=== PATIENT | female | born 1970 | race Caucasian/White ===

== ENCOUNTER 2021-11-26 22:27 | Emergency (ER) | payer BC, SELFPAY ==
[2021-11-26 22:47] VITALS: BP 98/57; PULSE 80; RESP 20; TEMP 36.7; O2SAT 99
== END 2021-11-27 00:48 | disposition left against medical advice (07) ==
LOC: ANHED 11-27 00:46
DX: R05.9 Cough, unspecified (principal)
CPT/HCPCS: 99199

== ENCOUNTER 2023-09-09 19:47 | Emergency (ER) | payer MEDICARE, MEDICAID, SELFPAY ==
[2023-09-09 19:48] VITALS: BP 114/78; PULSE 82; RESP 18; TEMP 36.9; O2SAT 100
[2023-09-09 20:01] VITALS: BP 114/78; PULSE 86; RESP 18; TEMP 36.9; O2SAT 100
[2023-09-09] MEDS: LIDOCAINE 5% PATCH 1 PATCH TRANSDERM (20:35)
[2023-09-09] MEDS: HYDROmorphone HCL (*CRX) 2 MG TABLET PO (20:35)
[2023-09-09] MEDS: diazePAM INJ (*CRX) 10 MG/2 ML SYRINGE 5 MG IM (20:36)
[2023-09-09] MEDS: CAPSAICIN 0.025% CREAM 60 GM TUBE 1 APPLIC TOPICAL (20:36)
--- NOTE | 2023-09-09 20:37 | ED.BACK ---
HPI - Back Pain/Injury General Chief Complaint: Back Pain/Injury Stated Complaint: back pain Time Seen by Provider: 09/09/23 20:07 History of Present Illness HPI Narrative: Patient has a history of chronic sciatic pain. She normally takes 4 mg of Dilaudid every 4 hours at home. She was unable to fill her prescription last week and did not have any pain medication for the past 4 days. However then she added that she was able to fill it 2-day and took a dose a couple hours prior to arrival. She states if she can get some additional medicine in the ER she can get ahead of the pain . Patient is moaning and screaming at times. Moving all around the bed. No signs of weakness or numbness on exam. She states at home at times she does get lower extremity tingling. No new changes. Related Data Allergies Allergy/AdvReac Type Severity Reaction Status Date / Time adhesive tape Allergy Intermediate rash Verified 09/09/23 19:57 acetaminophen Allergy Mild HIVES Verified 09/09/23 19:57 oxycodone [From Percocet] Allergy Hives Verified 09/09/23 19:57 OXYCODONE HCL Allergy Mild HIVES Uncoded 09/09/23 19:57 Review of Systems Review of Systems: Review of systems negative except what is documented in the [facility] Social History Social History Smoking status: Smoker, status unknown Alcohol intake: never Exam Narrative: GENERAL: Well-appearing, well-nourished, and constantly moving around in the bed and yelling out HEAD: Normocephalic, atraumatic. EYES: PERRLA and EOMI. ENT: Nares clear, no rhinorrhea or epistaxis. Mucous membranes moist. NECK: Supple. CHEST: Clear to auscultation. No respiratory distress. HEART: Regular rate and rhythm. ABDOMEN: Soft, nontender, nondistended. EXTREMITIES: Normal range of motion. No edema. SKIN: Warm, dry, no rash. NEURO: No focal deficits. Alert and oriented x3. PSYCH: Normal mood and affect. Course Course Emergency Course: Patient states high dose Dilaudid every 4 hours at home. She is managed by pain management. She is due for a dose. Home medication ordered as well as capsaicin lidocaine patch and Valium. Shared decision making regarding plan to go home and continue to take home medications. Patient denies any new injuries or any new neurodeficits. Best plan of care to take home medications and not get additional IV medications in the ER Vital Signs Vital signs: Vital Signs Temperature 36.9 C 09/09/23 19:48 Pulse Rate 82 09/09/23 19:48 Respiratory Rate 18 09/09/23 19:48 Blood Pressure 114/78 09/09/23 19:48 Pulse Oximetry 100 09/09/23 19:48 Oxygen Delivery Room Air 09/09/23 19:48 Temperature 36.9 C 09/09/23 20:01 Pulse Rate 74 09/09/23 21:27 Respiratory Rate 12 09/09/23 21:27 Blood Pressure 98/57 L 09/09/23 21:27 Pulse Oximetry 96 09/09/23 21:27 Oxygen Delivery Room Air 09/09/23 19:48 MDM - Back Pain/Injury MDM Narrative Medical decision making narrative: Patient states her symptoms are identical to when she does not get her pain medication. Will reassess Pt feeling much better. At discharge patient was sitting up rummaging through her purse. I advise she would be going home that there was no other pain medication we could offer and she said that was fine. We discussed her continuing her home medications and what to add. As soon as family arrived she started hollering again but stopped quickly. Pt ambulated to the wheelchair at discharge with stable gait Discharge Plan Discharge Clinical Impression: Chronic back pain Qualifiers: Back pain location: low back pain Back pain laterality: left Sciatica presence: with sciatica Sciatica laterality: sciatica of left side Qualified Code(s): M54.42 - Lumbago with sciatica, left side Sciatica Qualifiers: Laterality: left Qualified Code(s): M54.32 - Sciatica, left side Patient Disposition: Home, Self-Care Condition: Stable Instructions: Chronic Back Pain (DC),
[2023-09-09 21:27] VITALS: BP 98/57; PULSE 74; RESP 12; O2SAT 96
== END 2023-09-09 22:50 | disposition home or self-care (01) ==
PROVIDERS: Emergency Provider Emergency Medicine
DX: M54.42 Lumbago with sciatica, left side (principal)
CPT/HCPCS: 96372; 99283; A9270; J3360

== ENCOUNTER 2024-10-21 18:14 | Emergency (ER) | payer MEDICARE, MEDICAID, SELFPAY ==
--- NOTE | ~2024-10-21 | CT_ITS ---
EXAMINATION: CT brain wo con DATE: 10/21/2024 19:00 INDICATION: Altered mental status. TECHNIQUE: Computed tomography (CT) of the head was performed without intravenous contrast. The mA wa s adjusted according to patient size. Iterative reconstruction technique was employed. The dose-lengt h product was 605.33 mGy-cm. COMPARISON: Head CT 11/12/2006 FINDINGS: There is no intracranial hemorrhage, acute infarction, or abnormal intracranial mass lesion . The ventricles are normal in size. The orbits are normal. There is mild mucosal thickening in the p aranasal sinuses. The mastoid air cells are normal. IMPRESSION: 1. Normal brain. Reviewed, dictated and finalized at location A. ENT AMBASSADOR IMPRESSION: 1. Normal brain.
[2024-10-21 18:15] VITALS: BP 108/71; PULSE 86; RESP 12; O2SAT 95
--- NOTE | 2024-10-21 18:19 | ECG_ITS ---
Test Date: 2024-10-21 18:40:01 Measurements Intervals [place] Rate: 73 P: 50 MD: 169 QRS: 17 QRSD: 91 T: 40 QT: 400 QTc: 442 Interpretive Statements SINUS RHYTHM BASELINE ARTIFACT- I, III, AVR, AVL, AVF NORMAL ECG No previous ECG available for comparison Electronically Signed On 10-21-2024 18:42:44 [employer] by Yeyo Perikns D.O.
--- NOTE | 2024-10-21 18:28 | PC.NURSE ---
Patient now speaking and answering some questions.
--- NOTE | 2024-10-21 18:28 | PC.NURSE ---
patient placed on 4L NC due to patient dropping down to 80% RA
--- NOTE | 2024-10-21 18:31 | ED.GENADULT ---
HPI - General Adult General Chief complaint: Seizure Stated complaint: Seizure Time Seen by Provider: 10/21/24 18:28 History of Present Illness HPI narrative: 54-year-old female present to the emergency department for evaluation for syncope and seizure-like activity. When EMS arrived patient had worsening seizure-like activity patient was treated with 10 mg of IM Versed. Patient does not have a prior history of seizure but her daughter does have history of epilepsy. Patient was somnolent upon arrival due to the Versed. states that the patient has not been eating and drinking well and often over exerts herself the point of exhaustion. Related Data Allergies Allergy/AdvReac Type Severity Reaction Status Date / Time adhesive tape Allergy Intermediate rash Verified 10/21/24 18:41 acetaminophen Allergy Mild HIVES Verified 10/21/24 18:41 oxycodone [From Percocet] Allergy Hives Verified 10/21/24 18:41 OXYCODONE HCL Allergy Mild HIVES Uncoded 10/21/24 18:41 Review of Systems Review of Systems: All systems reviewed & are unremarkable except as noted in HPI and below [facility] Social History Social History Smoking status: Smoker, status unknown Alcohol intake: never Exam Narrative: APPEARANCE: Sedated appearing HEAD: normocephalic, atraumatic. EYES: PERRLA/EOMI, conjunctivae clear. NOSE: Normal no drainage EARS:TMS clear with good light reflex. THROAT: Pharynx clear, no exudate. NECK: Supple. No adenopathy, no masses. RESPIRATORY: Airway patent, respirations nonlabored. Clear to auscultation bilaterally, no rales, rhonchi, wheezing. CARDIOVASCULAR: Regular rate and rhythm without murmurs rubs or gallops. ABDOMINAL: Soft, nontender, nondistended, normal bowel sounds MUSCULOSKELETAL: Moves all extremities. Strength/ROM intact, No edema, No calf tenderness. NEURO: Confused but moving all limbs, no focal deficit SKIN: Warm, dry. Normal Color Course Vital Signs Vital signs: Vital Signs Pulse Rate 86 10/21/24 18:15 Respiratory Rate 12 10/21/24 18:15 Blood Pressure 108/71 10/21/24 18:15 Pulse Oximetry 95 10/21/24 18:15 Oxygen Delivery Room Air 10/21/24 18:15 Pulse Rate 69 10/21/24 19:13 Respiratory Rate 16 10/21/24 19:13 Blood Pressure 117/70 10/21/24 19:13 Pulse Oximetry 100 10/21/24 19:13 Oxygen Delivery Room Air 10/21/24 18:25 Medical Decision Making MDM Narrative Medical decision making narrative: 54-year-old female presenting to the emergency department for evaluation for seizure-like activity. Patient was treated with 10 mg of IM Versed prior to arrival. Patient was very sedated upon arrival. Patient did have a gag reflex. Patient then began to be agitated On re-evaluation patient is more alert appropriate. Patient denies any pain or complaint. Patient states she is hungry. Patient is afebrile with no leukocytosis and hemoglobin of 13.1, patient has no acute abnormalities on her CMP, patient's lactic acid is mildly elevated 2.5. Head CT shows no acute intracranial abnormality. Differential Diagnosis Differential Diagnosis: Seizure, syncope, dehydration, adverse drug reaction Vital Signs Vital Signs: Vital Signs Pulse Rate 86 10/21/24 18:15 Respiratory Rate 12 10/21/24 18:15 Blood Pressure 108/71 10/21/24 18:15 Pulse Oximetry 95 10/21/24 18:15 Oxygen Delivery Room Air 10/21/24 18:15 Pulse Rate 69 10/21/24 19:13 Respiratory Rate 16 10/21/24 19:13 Blood Pressure 117/70 10/21/24 19:13 Pulse Oximetry 100 10/21/24 19:13 Oxygen Delivery Room Air 10/21/24 18:25 Lab Data Lab results reviewed: Yes I reviewed the patient's lab results. 10/21/24 18:37 10/21/24 18:37 Labs: Lab Results 10/21/24 Range/Units 18:37 WBC 7.2 (4.5-10.0) K/mm3 RBC 3.96 L (4.2-5.4) M/mm3 Hgb 13.1 (12.0-15.0) g/dL Hct 40.0 (37.0-47.0) % MCV 101.0 H (80-100) fl MCH 33.1 (26-34) pg MCHC 32.8 (32-36) g/dl RDW 13.0 (11.5-14.5) % Plt Count 199 (150-375) k/mm3 MPV 10.6 H (7.4-10.4) fl Immature Gran % (Auto) 0.3 (0-0.5) % Neut % (Auto) 48.5 (45.5-73.1) % Lymph % (Auto) 39.4 (18.3-44.2) % [place] % (Auto) 9.4 H (2.6-8.5) % Eos % (Auto) 2.1 (0-4.4) % Baso % (Auto) 0.3 (0.2-1.2) % Lymph # (Auto) 2.84 (0.9-3.2) K/mm3 [place] # (Auto) 0.7 H (0.1-0.6) K/mm3 Eos # (Auto) 0.2 (0-0.3) K/mm3 Baso # (Auto) 0.0 (0.0-0.1) K/mm3 Abs Immat Gran (auto) 0.02 (0.00-0.031) K/mm3 Absolute Neuts (auto) 3.5 (1.3-6.7) K/mm3 Absolute Nucleated RBC 0.000 (0.0-0.012) K/mm3 Nucleated RBC % 0.0 (0.0-0.2) % PT 13.4 (11.1-14.7) Seconds INR 1.0 APTT 28.0 (22.3-36.8) Seconds Sodium 140 (137-145) mmol/L Potassium 4.1 (3.4-5.0) mmol/L Chloride 104 (98-107) mmol/L Carbon Dioxide 32 H (22-30) mmol/L Anion Gap 4 (4-12) mmol/L BUN 3 L (7-17) mg/dL Creatinine 0.60 L (0.7-1.0) mg/dL Estim Creat Clear Calc Not Reportable Estimated GFR > 60 (59 - ) Glucose 85 (65-110) mg/dL Lactic Acid 2.5 H (0.7-2.0) mmol/L Calcium 8.9 (8.4-10.2) mg/dL Total Bilirubin 0.4 (0.2-1.3) mg/dL AST 41 H (14-36) U/L ALT 17 (6-35) U/L Alkaline Phosphatase 93 (38-126) U/L Total Protein 7.0 (6.3-8.2) g/dL Albumin 3.9 (3.5-5.1) g/dL Imaging Data Radiologist's impression: Impressions Head CT 10/21/24 19:02 IMPRESSION: 1. Normal brain. Discharge Plan Discharge Clinical Impression: Seizure-like activity Patient Disposition: Home, Self-Care Condition: Stable Instructions: Antibiotic Form, New-Onset Seizure in Adults (ED) Additional Instructions: Follow seizure precautions. Have close follow-up with your primary care physician. If you have any worsening symptoms then please call or return to the emergency department. Follow-up/Referrals: Rohith Feng MD [Physician] - PHYSICIAN NOT ON STAFF,NONSTAFF [Non-Staff] -
--- NOTE | 2024-10-21 18:40 | PC.NURSE ---
seizure pads placed on patient's bed patient only alert to painful stimuli at this time. provider aware and states to keep an eye on patient
[2024-10-21 18:44] LABS: Basophils Percent Auto 0.3 % (0.2-1.2); Eosinophils Absolute Auto 0.2 K/mm3 (0-0.3); Eosinophils Percent Auto 2.1 % (0-4.4); Hemoglobin 13.1 g/dL (12.0-15.0); Immature Granulocyte Absolute 0.02 K/mm3 (0.00-0.031); Immature Granulocyte Percent A 0.3 % (0-0.5); Lymphocytes Absolute Auto 2.84 K/mm3 (0.9-3.2); Lymphocytes Percent Auto 39.4 % (18.3-44.2); Mean Corpuscular HGB Conc 32.8 g/dl (32-36); Mean Corpuscular Hemoglobin 33.1 pg (26-34); Mean Platelet Volume 10.6 fl (7.4-10.4); Monocytes Absolute Auto 0.7 K/mm3 (0.1-0.6); Monocytes Percent Auto 9.4 % (2.6-8.5); Neutrophils Absolute Auto 3.5 K/mm3 (1.3-6.7); Neutrophils Percent Auto 48.5 % (45.5-73.1); Platelet Count Result 199 k/mm3 (150-375); Red Blood Count 3.96 M/mm3 (4.2-5.4); White Blood Count 7.2 K/mm3 (4.5-10.0)
[2024-10-21 18:55] LABS: Prothrombin Time 13.4 Seconds (11.1-14.7)
[2024-10-21 18:57] LABS: Alanine Aminotransferase 17 U/L (6-35); Albumin Level 3.9 g/dL (3.5-5.1); Alkaline Phosphatase 93 U/L (38-126); Anion Gap 4 mmol/L (4-12); Aspartate Amino Transferase 41 U/L (14-36); Bilirubin,Total 0.4 mg/dL (0.2-1.3); Blood Urea Nitrogen 3 mg/dL (7-17); Calcium 8.9 mg/dL (8.4-10.2); Carbon Dioxide 32 mmol/L (22-30); Chloride 104 mmol/L (98-107); Estimated Glomerular Filt Rate > 60; Glucose 85 mg/dL (65-110); Lactic Acid Reflex 2.5 mmol/L (0.7-2.0); Potassium 4.1 mmol/L (3.4-5.0); Sodium 140 mmol/L (137-145)
[2024-10-21 19:13] VITALS: BP 117/70; PULSE 69; RESP 16; O2SAT 100
[2024-10-21 21:42] LABS: Reflex Lactic Acid Yes or No Add Lactic
[2024-10-21 21:57] VITALS: BP 110/64; PULSE 71; RESP 17; O2SAT 99
== END 2024-10-21 21:59 | disposition home or self-care (01) ==
PROVIDERS: Emergency Provider Emergency Medicine
DX: R56.9 Unspecified convulsions (principal)
CPT/HCPCS: 36415; 70450; 80053; 83605; 85025; 85610; 85730; 93005; 99284

== ENCOUNTER 2025-04-18 19:41 | Inpatient (IN) | payer MEDICARE, MEDICAID, SELFPAY ==
--- NOTE | ~2025-04-18 | CT_ITS ---
History: Seizure-like activity PROCEDURE: CT head without contrast. COMPARISON: 04/18/2025 TECHNIQUE: Axial imaging of the head performed from the skull base to the vertex prior to and following the admi nistration of IV contrast. Sagittal and coronal reformations obtained. DLP: 1211 mGy-cm FINDINGS: The ventricles are normal in size, shape and position. There is no mass, mass effect or midline shift. No abnormal contrast enhancement is appreciated. There is no abnormal extra-axial fluid collection or intracranial hemorrhage. Visualized paranasal sinuses are clear. The mastoid air cells are well aerated. No acute displaced fractures within the overlying cranium. Impression: No acute intracranial hemorrhage, abnormal contrast enhancement or suspicious mass effect. Reviewed, dictated and finalized at location A. Impression: No acute intracranial hemorrhage, abnormal contrast enhancement or suspicious m ass effect.
--- NOTE | ~2025-04-18 | XR_ITS ---
CHEST RADIOGRAPH CLINICAL HISTORY: AMS . COMPARISON: 10/12/2014 TECHNIQUE: Single portable view of the chest. Examination is markedly limited secondary to positioning/patient cooperation FINDINGS Loop recorder projects to the right of midline. Dorsal column stimulator device is noted. The remainder of the cardiomediastinal silhouette is otherwise unremarkable. The lungs are primarily clear, within the confines of patient's positioning. IMPRESSION: No large infiltrate or effusion. No pneumothorax. Reviewed, dictated and finalized at location A.
--- NOTE | ~2025-04-18 | CT_ITS ---
History: Blunt head trauma with loss of consciousness. PROCEDURE: CT head without contrast. COMPARISON: 10/21/2024 TECHNIQUE: Axial imaging of the head performed from the skull base to the vertex without IV contrast. Sagittal a nd coronal reformations obtained. DLP: 681 mGy-cm FINDINGS: The ventricles are normal in size, shape and position. There is no mass, mass effect or midline shift. There is no abnormal extra-axial fluid collection or intracranial hemorrhage. Visualized paranasal sinuses are clear. The mastoid air cells are well aerated. No acute displaced fractures within the overlying cranium. Impression: No acute intracranial hemorrhage or suspicious mass effect. Reviewed, dictated and finalized at location A. Impression: No acute intracranial hemorrhage or suspicious mass effect.
--- NOTE | ~2025-04-18 | CT_ITS ---
History: Blunt head trauma with loss of consciousness PROCEDURE: CT cervical spine without intravenous contrast. COMPARISON: None TECHNIQUE: Multiple contiguous axial images of the cervical spine were performed without the administration of i ntravenous contrast. DLP: 317 mGy-cm FINDINGS: Straightening and slight reversal of the normal curvature of the cervical spine is identified, likely muscular in origin. No acute fractures are present. The bilateral lung apices are unremarkable. No soft tissue abnormality is present. The airway is unremarkable. Impression: Straightening and slight reversal of the normal curvature of the cervical spine, likely muscular in o rigin. No acute fracture. Reviewed, dictated and finalized at location A. Impression: Straightening and slight reversal of the normal curvature of the cervical spine , likely muscular in origin. No acute fracture.
--- NOTE | ~2025-04-18 | US_ITS ---
EXAMINATION: US carotid duplex BI DATE: 04/19/2025 14:46 CDT INDICATION: Seizure-like activity TECHNIQUE: Grayscale, color Doppler, and pulsed Doppler images of the cervical carotid arteries were obtained. The degree of vessel stenosis is placed in one of the following categories: normal, <50%, 50-69%, >=7 0% but less than near-occlusion, near-occlusion, or total occlusion. Note that percent stenosis relative to normal distal artery lumen diameter is indirectly measured fro m velocity measurements as described originally by Phani, et al. Radiology 2003; 229:340-346 and upda padmini by Darío Rome et al STROKE 2012;43(3);915-921. COMPARISON: None. FINDINGS: There is mild atherosclerosis of both carotid arteries. Peak systolic velocity (in cm/s) is detailed below RIGHT: Right common carotid artery (CCA): 98 cm/s. Right internal carotid artery (ICA) PSV: 121 cm/s. Right ICA end-diastolic velocity (EDV): 43 cm/s. Right ICA/CCA PSV ratio is 1.2. Right external carotid artery (ECA): 97cm/s. There is antegrade flow in the right vertebral artery. LEFT: Left common carotid artery (CCA): 91 cm/s. Left internal carotid artery (ICA) PSV: 109 cm/s. Left ICA end-diastolic velocity (EDV): 38 cm/s. Left ICA/CCA PSV ratio is 1.2. Left external carotid artery (ECA): 81cm/s. There is antegrade flow in the left vertebral artery. IMPRESSION: 1. Less than 50% stenosis in the right internal carotid artery. 2. Less than 50% stenosis in the left internal carotid artery. Reviewed, dictated and finalized at location A.
[2025-04-18 19:43] VITALS: BP 129/69; PULSE 72; RESP 12; TEMP 37.1; O2SAT 99
--- NOTE | 2025-04-18 19:54 | ECG_ITS ---
Test Date: 2025-04-18 21:35:14 Measurements Intervals [place] Rate: 75 P: 50 [place]: 182 QRS: 25 QRSD: 100 T: 48 QT: 387 QTc: 432 Interpretive Statements SINUS RHYTHM NONSPECIFIC T-WAVE ABNORMALITY Compared to ECG 10/21/2024 18:40:01 T-wave abnormality now present Electronically Signed On 04-19-2025 10:44:38 CDT by Mike Kelly M.D.
--- NOTE | 2025-04-18 19:55 | ED_ITS ---
HPI - Head Injury General Chief complaint: Head Injury <Helene Corcoran PA-C - Last Filed: 04/18/25 22:22> Stated complaint: head trauma <Helene Corcoran PA-C - Last Filed: 04/18/25 22:22> History of Present Illness HPI Narrative: 54-year-old female with reported history of seizure presents to the ED via EMS for head injury seizure-like activity. Patient's daughter is at bedside to assist with history. Patient states yesterday he she hit the top of her head with the trunk of her car. She denies LOC. Her daughter states throughout the day today she is seemed more confused and has been complaining of dizziness. Reportedly the patient was getting of a car when she had another episode of seizure-like activity and hit her head with reported loss of consciousness. She is not anticoagulated. She is not on any antiepileptics and not currently established with a neurologist. States she has not had a seizure in 1.5 years. On arrival to the ED the patient is complaining of headache. She endorses chronic numbness and weakness of her left leg from a prior back injury but otherwise denies new focal numbness or weakness. Denies chest pain or shortness of breath, cough or congestion, nausea vomiting, diarrhea, fever. Denies drug or alcohol use. <Helene Corcoran PA-C - Last Filed: 04/18/25 22:22> Related Data Home medications: Home Medications ?Medication ?Instructions ?Recorded ?Confirmed ?Last Taken ?Type atorvastatin 40 mg tablet 40 mg PO QPM 04/18/25 04/18/25 Unknown History ergocalciferol (vitamin D2) 1,250 1,250 mcg PO WEEKLY 04/18/25 04/18/25 Unknown History mcg (50,000 unit) capsule estradiol 1 mg tablet 1 mg PO DAILY 04/18/25 04/18/25 Unknown History hydromorphone 4 mg tablet 4 mg PO Q4-6H PRN pain 04/18/25 04/18/25 Unknown History levothyroxine 150 mcg tablet 150 mcg PO DAILY 04/18/25 04/18/25 Unknown History sertraline 100 mg tablet 100 mg PO Q24H 04/18/25 04/18/25 Unknown History tizanidine 4 mg tablet 4 mg PO TID 04/18/25 04/18/25 Unknown History <Helene Corcoran PA-C - Last Filed: 04/18/25 22:22> Allergies/Adverse reactions: Allergies Allergy/AdvReac Type Severity Reaction Status Date / Time adhesive tape Allergy Intermediate rash Verified 10/21/24 18:41 acetaminophen Allergy Mild HIVES Verified 10/21/24 18:41 oxycodone (From Percocet) Allergy Hives Verified 10/21/24 18:41 OXYCODONE HCL Allergy Mild HIVES Uncoded 10/21/24 18:41 <Helene Corcoran PA-C - Last Filed: 04/18/25 22:22> Review of Systems 2 Review of Systems: All systems reviewed & are unremarkable except as noted in HPI and below <Helene Corcoran PA-C - Last Filed: 04/18/25 22:22> PMFSH Social History Social History: Social History Smoking packs per day: 1 Smoking cigarettes per day: 20.0 Smoking status: Current every day smoker Tobacco type: cigarettes Alcohol intake: never Substance use: never Do You Feel Safe in your Home?: Yes Lack of Transportation: No Lack of Food: Never True Current Housing: I Have Housing Concerned About Future Housing: No Difficulty Paying Gas/Electric Bills: No Difficulty Paying for Meds: No Currently Unemployed: No Education: Bachelor's Degree Difficulty w/ Childcare or Family Care: No Spiritual care concerns: No <Helene Corcoran PA-C - Last Filed: 04/18/25 22:22> Exam 2 Narrative: GENERAL: Well-appearing, well-nourished, and in no acute distress. HEAD: Normocephalic, atraumatic. EYES: EOMI. ENT: Nares clear, no rhinorrhea or epistaxis. Mucous membranes moist. NECK: Supple. CHEST: Clear to auscultation. No respiratory distress. HEART: Regular rate and rhythm. No murmur heard. Normal peripheral pulses. ABDOMEN: Soft, nontender, nondistended, normal active bowel sounds. EXTREMITIES: Normal range of motion. No edema. SKIN: Warm, dry, no rash. NEURO: No focal deficits. Alert and oriented x2. Cranial nerves 2-12 intact. Reported decreased sensation to the left lower extremity which is unchanged from baseline. Strength and sensation otherwise intact. <Helene Corcoran PA-C - Last Filed: 04/18/25 22:22> Course DIGITAL FORENSIC ANALYST/PA Physician Supervision I agree with midlevel documentation; I performed the medical decision making component of this evaluation. <Mar Tinajero MD - Last Filed: 04/19/25 03:17> Vital Signs Vital signs: Vital Signs Temperature 98.7 F 04/18/25 19:43 Pulse Rate 72 04/18/25 19:43 Respiratory Rate 12 04/18/25 19:43 Blood Pressure 129/69 04/18/25 19:43 Pulse Oximetry 99 04/18/25 19:43 Oxygen Delivery Room Air 04/18/25 19:43 Temperature 97.1 F L 04/19/25 00:48 Pulse Rate 74 04/19/25 00:48 Respiratory Rate 20 04/19/25 00:48 Blood Pressure 118/62 04/19/25 00:48 Pulse Oximetry 99 04/19/25 00:48 Oxygen Delivery Room Air 04/18/25 23:48 <Helene Corcoran PA-C - Last Filed: 04/18/25 22:22> Vital Signs Temperature 98.7 F 04/18/25 19:43 Pulse Rate 72 04/18/25 19:43 Respiratory Rate 12 04/18/25 19:43 Blood Pressure 129/69 04/18/25 19:43 Pulse Oximetry 99 04/18/25 19:43 Oxygen Delivery Room Air 04/18/25 19:43 Temperature 97.1 F L 04/19/25 00:48 Pulse Rate 74 04/19/25 00:48 Respiratory Rate 20 04/19/25 00:48 Blood Pressure 118/62 04/19/25 00:48 Pulse Oximetry 99 04/19/25 00:48 Oxygen Delivery Room Air 04/18/25 23:48 <Mar Tinajero MD - Last Filed: 04/19/25 03:17> MDM - Head Injury MDM Narrative Medical decision making narrative: 54-year-old female with reported history of seizures presents to emergency department with daughter at bedside for head injury yesterday and today and seizure-like activity that occurred prior to arrival. See HPI for further history. Patient is A&Ox2 upon arrival to the ED. She has no new lateralizing deficits, see exam above. CBC without leukocytosis or anemia. Chemistries are unremarkable. UA unremarkable. UDS positive for opiates, patient is prescribed [place] by pain management for chronic pain. ETOH less than 10. TSH within normal limits. Chest x-ray shows no acute cardiopulmonary findings. CK and lactic acid are within normal limits. CT brain and cervical spine showed no acute findings. Patient updated on results. She did have an episode of seizure-like activity in the ED. I immediately went to the bedside. Patient was visualized having diffuse tonic clonic like movements, however when I called her name she open her eyes and track me with her eyes. She was given 2 mg of Ativan by nursing staff and seizure-like activity stopped. She had no postictal state and was converse aiding in A&O x4 immediately after episode. Patient remains A&O x4 on re-evaluation. Differential diagnosis includes pseudo-seizure/non epileptic seizure, epilepsy, concussion and other. Given patient is a poor historian and is on close follow-up with Neurology, plan to admit to the hospitalist for further evaluation and management with consult to Neurology tomorrow. Discussed with hospitalist, Dr. Rodriguez, who agrees to admission. Pt is requesting a dose of her home po dilaudid. <Helene Corcoran PA-C - Last Filed: 04/18/25 22:22> Lab Data Result diagrams: 04/18/25 20:04 04/18/25 20:04 <Helene Corcoran PA-C - Last Filed: 04/18/25 22:22> Labs: Lab Results 04/18/25 04/18/25 Range/Units 20:04 20:46 WBC 7.8 (4.5-10.0) K/mm3 RBC 4.44 (4.2-5.4) M/mm3 Hgb 14.2 (12.0-15.0) g/dL Hct 43.5 (37.0-47.0) % MCV 98.0 (80-100) fl MCH 32.0 (26-34) pg MCHC 32.6 (32-36) g/dl RDW 12.5 (11.5-14.5) % Plt Count 184 (150-375) k/mm3 MPV 11.8 H (7.4-10.4) fl Immature Gran % (Auto) 0.3 (0-0.5) % Neut % (Auto) 54.6 (45.5-73.1) % Lymph % (Auto) 37.7 (18.3-44.2) % [place] % (Auto) 5.8 (2.6-8.5) % Eos % (Auto) 1.3 (0-4.4) % Baso % (Auto) 0.3 (0.2-1.2) % Lymph # (Auto) 2.93 (0.9-3.2) K/mm3 [place] # (Auto) 0.5 (0.1-0.6) K/mm3 Eos # (Auto) 0.1 (0-0.3) K/mm3 Baso # (Auto) 0.0 (0.0-0.1) K/mm3 Abs Immat Gran (auto) 0.02 (0.00-0.031) K/mm3 Absolute Neuts (auto) 4.3 (1.3-6.7) K/mm3 Absolute Nucleated RBC 0.000 (0.0-0.012) K/mm3 Nucleated RBC % 0.0 (0.0-0.2) % PT 12.6 (11.1-14.7) Seconds INR 0.9 APTT 28.8 (22.3-36.8) Seconds Sodium 140 (137-145) mmol/L Potassium 3.9 (3.4-5.0) mmol/L Chloride 105 (98-107) mmol/L Carbon Dioxide 29 (22-30) mmol/L Anion Gap 6 (4-12) mmol/L BUN 9 D (7-17) mg/dL Creatinine 0.71 (0.7-1.0) mg/dL Estim Creat Clear Calc 72 ml/min Estimated GFR > 60 (59 - ) Glucose 85 (65-110) mg/dL Lactic Acid 0.9 (0.7-2.0) mmol/L Calcium 9.1 (8.4-10.2) mg/dL Total Bilirubin 0.3 (0.2-1.3) mg/dL AST 26 (14-36) U/L ALT 14 (6-35) U/L Alkaline Phosphatase 118 (38-126) U/L Total Creatine Kinase 65 (30-135) U/L Troponin I < 0.012 (0.000-0.034) ng/mL Total Protein 8.0 (6.3-8.2) g/dL Albumin 4.5 (3.5-5.1) g/dL TSH 3.980 (0.465-4.680) uIU/mL Urine Color Yellow (Yellow) Urine Appearance Clear (Clear) Urine pH 5.5 (5.0-9.0) Ur Specific Dinosaur 1.007 (1.001-1.035) Urine Protein Negative (Negative) mg/dL Urine Glucose (UA) Negative (Negative) mg/dL Urine Ketones Negative (Negative) mg/dL Ur Blood (Man) Negative (Negative) Urine Nitrate Negative (Negative) Urine Bilirubin Negative (Negative) Urine Urobilinogen 1.0 (<2.0) mg/dL Leukocyte Esterase Rfl Negative (Negative) RODNEY/UL Urine Opiates Screen Positive A (Negative) Urine Methadone Screen Negative (Negative) Ur Barbiturates Screen Negative (Negative) Ur Phencyclidine Scrn Negative (Negative) Ur Amphetamine Screen Negative (Negative) U Benzodiazepines Scrn Negative (Negative) Urine Cocaine Screen Negative (Negative) U Cannabinoids Screen Negative (Negative) Ethyl Alcohol < 10 (<10) mg/dL <Helene Corcoran PA-C - Last Filed: 04/18/25 22:22> Lab Results 04/18/25 04/18/25 Range/Units 20:04 20:46 WBC 7.8 (4.5-10.0) K/mm3 RBC 4.44 (4.2-5.4) M/mm3 Hgb 14.2 (12.0-15.0) g/dL Hct 43.5 (37.0-47.0) % MCV 98.0 (80-100) fl MCH 32.0 (26-34) pg MCHC 32.6 (32-36) g/dl RDW 12.5 (11.5-14.5) % Plt Count 184 (150-375) k/mm3 MPV 11.8 H (7.4-10.4) fl Immature Gran % (Auto) 0.3 (0-0.5) % Neut % (Auto) 54.6 (45.5-73.1) % Lymph % (Auto) 37.7 (18.3-44.2) % [place] % (Auto) 5.8 (2.6-8.5) % Eos % (Auto) 1.3 (0-4.4) % Baso % (Auto) 0.3 (0.2-1.2) % Lymph # (Auto) 2.93 (0.9-3.2) K/mm3 [place] # (Auto) 0.5 (0.1-0.6) K/mm3 Eos # (Auto) 0.1 (0-0.3) K/mm3 Baso # (Auto) 0.0 (0.0-0.1) K/mm3 Abs Immat Gran (auto) 0.02 (0.00-0.031) K/mm3 Absolute Neuts (auto) 4.3 (1.3-6.7) K/mm3 Absolute Nucleated RBC 0.000 (0.0-0.012) K/mm3 Nucleated RBC % 0.0 (0.0-0.2) % PT 12.6 (11.1-14.7) Seconds INR 0.9 APTT 28.8 (22.3-36.8) Seconds Sodium 140 (137-145) mmol/L Potassium 3.9 (3.4-5.0) mmol/L Chloride 105 (98-107) mmol/L Carbon Dioxide 29 (22-30) mmol/L Anion Gap 6 (4-12) mmol/L BUN 9 D (7-17) mg/dL Creatinine 0.71 (0.7-1.0) mg/dL Estim Creat Clear Calc 72 ml/min Estimated GFR > 60 (59 - ) Glucose 85 (65-110) mg/dL Lactic Acid 0.9 (0.7-2.0) mmol/L Calcium 9.1 (8.4-10.2) mg/dL Total Bilirubin 0.3 (0.2-1.3) mg/dL AST 26 (14-36) U/L ALT 14 (6-35) U/L Alkaline Phosphatase 118 (38-126) U/L Total Creatine Kinase 65 (30-135) U/L Troponin I < 0.012 (0.000-0.034) ng/mL Total Protein 8.0 (6.3-8.2) g/dL Albumin 4.5 (3.5-5.1) g/dL TSH 3.980 (0.465-4.680) uIU/mL Urine Color Yellow (Yellow) Urine Appearance Clear (Clear) Urine pH 5.5 (5.0-9.0) Ur Specific Dinosaur 1.007 (1.001-1.035) Urine Protein Negative (Negative) mg/dL Urine Glucose (UA) Negative (Negative) mg/dL Urine Ketones Negative (Negative) mg/dL Ur Blood (Man) Negative (Negative) Urine Nitrate Negative (Negative) Urine Bilirubin Negative (Negative) Urine Urobilinogen 1.0 (<2.0) mg/dL Leukocyte Esterase Rfl Negative (Negative) RODNEY/UL Urine Opiates Screen Positive A (Negative) Urine Methadone Screen Negative (Negative) Ur Barbiturates Screen Negative (Negative) Ur Phencyclidine Scrn Negative (Negative) Ur Amphetamine Screen Negative (Negative) U Benzodiazepines Scrn Negative (Negative) Urine Cocaine Screen Negative (Negative) U Cannabinoids Screen Negative (Negative) Ethyl Alcohol < 10 (<10) mg/dL <Mar Tinajero MD - Last Filed: 04/19/25 03:17> Discharge Plan Discharge Clinical Impression: Seizure-like activity Closed head injury Qualifiers: Encounter type: initial encounter Qualified Code(s): S09.90XA - Unspecified injury of head, initial encounter <Helene Corcoran PA-C - Last Filed: 04/18/25 22:22> Patient Disposition: Still a Patient <Helene Corcoran PA-C - Last Filed: 04/18/25 22:22> Condition: Stable <Helene Corcoran PA-C - Last Filed: 04/18/25 22:22>
[2025-04-18 20:13] LABS: Basophils Percent Auto 0.3 % (0.2-1.2); Eosinophils Absolute Auto 0.1 K/mm3 (0-0.3); Eosinophils Percent Auto 1.3 % (0-4.4); Hematocrit 43.5 % (37.0-47.0); Hemoglobin 14.2 g/dL (12.0-15.0); Immature Granulocyte Absolute 0.02 K/mm3 (0.00-0.031); Immature Granulocyte Percent A 0.3 % (0-0.5); Lymphocytes Absolute Auto 2.93 K/mm3 (0.9-3.2); Lymphocytes Percent Auto 37.7 % (18.3-44.2); Mean Corpuscular HGB Conc 32.6 g/dl (32-36); Mean Platelet Volume 11.8 fl (7.4-10.4); Monocytes Absolute Auto 0.5 K/mm3 (0.1-0.6); Monocytes Percent Auto 5.8 % (2.6-8.5); Neutrophils Absolute Auto 4.3 K/mm3 (1.3-6.7); Neutrophils Percent Auto 54.6 % (45.5-73.1); Platelet Count Result 184 k/mm3 (150-375); Red Blood Count 4.44 M/mm3 (4.2-5.4); Red Cell Distribution Width 12.5 % (11.5-14.5); White Blood Count 7.8 K/mm3 (4.5-10.0)
--- OUTSIDE RECORDS SUMMARY | 2025-04-18 20:21 | XMS_ITS | Clinical Summary ---
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 Role Phone Unavailable Primary Care Provider Unavailabl e Social History Tobacco Use Types Packs/Day Years Used Date Smoking Tobacco: Never Assessed Comments Unknown Sex and Gender Information Value Date Recorded Sex Assigned at Not on file Legal Sex Female 11:41 PM CDT Gender Identity Not on file Sexual Orientation Not on file Plan of Treatment Health Maintenance Due Date Last Done Comments Cervical Cancer Screening Pa p Smear (Age 30 to 64) Every 3 Years 1969 Colorectal Cancer Screening Colonoscopy (10 Years) 1969 Annual Physical 1972 Hepatitis C 1987 DTaP, Tdap and Td Vaccines ( 1 - Tdap) 1988 Hepatitis B Vaccines (1 of 3 - 19+ 3-dose series) 1988 Cervical Cancer Screening Pa p with HPV Testing (Age 30 to 64) Every 5 Years 1999 Cervical Cancer Screening with HPV 1999 Mammogram Screening 2009 Pneumococcal Vaccine: 50+ Ye ars (1 of 1 - PCV) 2019 Zoster Vaccines (1 of 2) 2019 COVID-19 Vaccine ( - 2023-2 5 season) 2024 Meningococcal B Vaccine Aged Out No l onger eligible based on patient's age to complete this topic Meningococcal Vaccine Aged Out No nanette alverto eligible based on patient's age to complete this topic RSV Immunizations Under 20 Months Aged Out No longer eligible based on patient's age to complete this topic
--- OUTSIDE RECORDS SUMMARY | 2025-04-18 20:21 | XMS_ITS | Data Portability ---
Author Organization [facility] [place] Address [address] [place] [address] [place] [address] Assessment No assessment recorded. Plan of Treatment Reminders Order Date Submit Date Provider Last Modified By Organization Details Last Modified Time Details Appointments None recorded. Lab None recorded. Referral None recorded. Procedures None recorded. Surgeries None recorded. Imaging MAMMO, screening, digital, bilateral 2024 025 CHASIDY Not available 04:09:54 Medication Orders nystatin 100,000 unit/gram topical powder 2024 025 [id number], [address], [place], [place], [id number], 10:48:51 Patient TargetsNo targets recorded. Patient InstructionsNo instructions recorded. Reason for Referral None Reported. Procedures Surgical History Date Name Laterality Status Provider Name and Address Organization Details Recorded Time 12/02/19 18 procedure on back completed MARIANNA Cleary [facility] 12/30/2024 10:09:08 03/11/19 89 [facility] 10:08:31 12/02/18 89 procedure on gallbladder completed MARIANNA Cleary [facility] 12/30/2024 10:08:56 05/11/19 87 section completed MARIANNA [facility] 12/30/2024 10:08:20 bariatric operative procedure completed SIDDHARTH Weinberg [address], [place], [address], [facility] 12/30/2024 10:20:01 Total Hysterectomy completed Ellen Medeiros LETTY [address], [place], [address], [facility] 12/30/2024 10:20:35 oophorectomy completed Ellen Medeiros LETTY [address], [place], [address], [facility] 12/30/2024 10:20:41 Appendectomy completed Ellen Medeiros LETTY [address], [place], [address], [facility] 12/30/2024 10:26:33 Imaging Results None recorded. Procedure Notes None recorded. Medical Equipment None Reported. Allergies Allergen ID Allergen Name Allergen Category Reaction Reaction Severity Criticality Documentation Date Start Date Code Code System Note Provider Name and Address Organization Details Recorded Time 74643 Paper Tape medicatio n Not available Not available Not available 12/30/2024 35274 UNK MARIANNA Cleary [facility] 10:15:03 09644 oxycodone medicatio n Not available Not available Not available 12/30/2024 7804 RxNorm [facility] 10:15:31 65353 latex environme nt,medica tion Not available Not available Not available 12/30/2024 17121 91 RxNorm Ellen Medeiros LETTY [address], [place], [address], [facility] 10:22:12 94073 acetamino phen medicatio n Not available Not available Not available 12/30/2024 161 RxNorm Ellen Medeiros LETTY [address], [place], [address], [facility] 5 10:22:18 83739 morphine medicatio n Not available Not available Not available 12/30/2024 7052 RxNorm Ellen Medeiros [facility] [address], [place], [address], [facility] 5 10:22:31 22339 acetamino phen / oxycodone medicatio n Not available Not available Not available 12/30/2024 77399 3 RxNorm Ellen Medeiros [facility] [address], [place], [address], [facility] 5 10:22:38 16799 Medicinal product containin g nitrofura n derivativ e and acting as antibacte rial agent (product) medicatio n Not available Not available Not available 12/30/2024 67223 2001 SNOMED Ellen Medeiros LETTY [address], [place], [address], [facility] 5 10:22:47 Medications Name Sig Start Date Stop Date Status Note LastModified by Organization Details LastModified Time atorvastatin 40 mg tablet TAKE 1 TABLET BY MOUTH EVERY DAY active Not Available Not Available No t Available levothyroxin e 175 mcg tablet TAKE 1 TABLET BY MOUTH EVERY DAY active Not Available Not Available No t Available atorvastatin 20 mg tablet TAKE 1 TABLET BY MOUTH EVERY DAY active Not Available Not Available No t Available trazodone 50 mg tablet TAKE 1 TO 2 TABLETS BY MOUTH EVERY NIGHT 1 HOUR BEFORE BEDTIME FOR INSOMNIA active Not Available Not Available No t Available tizanidine 4 mg tablet TAKE 1 TABLET BY MOUTH THREE TIMES DAILY active Not Available Not Available Not Available Nystop 100,000 unit/gram topical powder APPLY TOPICALLY TO THE AFFECTED AREA TWICE DAILY active Not Available Not Available No t Available phentermine 15 mg capsule TAKE 1 CAPSULE BY MOUTH EVERY DAY active Not Available Not Available No t Available metronidazol e 500 mg tablet TAKE 1 TABLET BY MOUTH TWICE DAILY FOR 14 DAYS active Not Available Not Available No t Available phentermine 30 mg capsule TAKE 1 CAPSULE BY MOUTH EVERY DAY active Not Available Not Available No t Available alprazolam 0.5 mg tablet TAKE 1 TABLET BY MOUTH EVERY DAY NEEDED active Not Available Not Available No t Available prednisolone acetate 1 % eye drops,suspen andreas INSTILL 1 DROP INTO RIGHT EYE FOUR TIMES DAILY AFTER THE JEFFERSON FOR 5 DAYS active Not Available Not Available N ot Available estradiol 1 mg tablet TAKE 1 TABLET BY MOUTH EVERY DAY active Not Available Not Available No t Available doxycycline monohydrate 100 mg capsule TAKE 1 CAPSULE BY MOUTH EVERY 12 HOURS FOR 14 DAYS active Not Available Not Available Not Available cephalexin 500 mg capsule TAKE 1 CAPSULE BY MOUTH FOUR TIMES DAILY FOR 10 DAYS active Not Available Not Available Not Available pantoprazole 40 mg tablet,delay ed release TAKE 1 TABLET BY MOUTH EVERY DAY active Not Available Not Available No t Available cyanocobalam in (vit B-12) 1,000 mcg/mL injection solution ADMINISTER 1 ML UNDER THE SKIN EVERY MONTH active Not Available Not Available Not Available levothyroxin e 150 mcg tablet TAKE 1 TABLET BY MOUTH EVERY DAY active Not Available Not Available No t Available ergocalcifer ol (vitamin D2) 1,250 mcg (50,000 unit) capsule TAKE 1 CAPSULE BY MOUTH WEEKLY active Not Available Not Available No t Available albuterol sulfate HFA 90 mcg/actuatio n aerosol inhaler INHALE 2 PUFFS BY MOUTH EVERY 4 HOURS NEEDED FOR SHORTNESS OF BREATH active Not Available Not Available No t Available hydromorphon e 4 mg tablet TAKE 1 TABLET BY MOUTH EVERY 4 TO 6 HOURS NEEDED FOR PAIN. MAX 5.5 TABLETS PER DAY. active Not Available Not Available No t Available fluoxetine 20 mg capsule TAKE ONE CAPSULE BY MOUTH EVERY DAY WITH 40 MG CAPSULE active Not Available Not Available N ot Available fluticasone propionate 50 mcg/actuatio n nasal spray,suspen andreas SHAKE LIQUID AND USE 2 SPRAYS IN EACH NOSTRIL DAILY active Not Available Not Available No t Available sertraline 50 mg tablet TAKE 1 TABLET BY MOUTH EVERY DAY active Not Available Not Available No t Available pregabalin 200 mg capsule TAKE 1 CAPSULE BY MOUTH EVERY 8 HOURS active Not Available Not Available No t Available trazodone active Not Available Not Lien ilable Not Available Dilaudid active Not Available Not Avai lable Not Available diclofenac 1 % topical gel APPLY 4 GRAMS TOPICALLY TO THE AFFECTED AREA EVERY 4 TO 6 HOURS active Not Available Not Available No t Available GaviLyte-G 236 gram-22.74 gram-6.74 gram-5.86 gram oral solution MIX AND DRINK DIRECTED active Not Available Not Available No t Available Vitals Date Recorded Body height Body mass index (BMI) Body weight Systolic blood pressure Diastolic blood pressure Provider Name and Address Organization Details Last Updated DateTime 12/30/2024 149.86 cm 29.3 kg/m2 02344.89 g 123 mm[Hg] 81 mm[Hg] MARIANNA Cleary [facility] 10:20:45 Social History Question Answer Notes LastModified by Organizat ion Details LastModified Time Tobacco Smoking Status Current Every Day Smoker MARIANNA Cleary [facility] 12/30/2024 10:17:33 Are You Blind Or Do You Have Difficulty Seeing? No Information n ot available 12/30/2024 In The 14 Days Before Symptom Onset, Have You Had Close Contact With A Laboratory-confirm ed COVID-19 While That Case Was Ill? No Information n ot available 12/30/2024 In The 14 Days Before Symptom Onset, Have You Had Close Contact With A Person Who Is Under Investigation For COVID-19 While That Person Was Ill? No [email or web address] Information not available 12/30/2024 Have You Been To An Area Known To Be High Risk For COVID-19? No [email or web address] Information not available 12/30/2024 Are You Deaf Or Do You Have Serious Difficulty Hearing? No [email or web address] Information not available 12/30/2024 What Is The Highest Grade Or Level Of School You Have Completed Or The Highest Degree You Have Received? [id number] [email or web address] Information not available 12/30/2024 Are There Any Guns Present In Your Home? No [email or web address] Information not available 12/30/2024 What Is Your Current Pack Years? 10-19packyea rs [email or web address] Information not available 12/30/2024 Are You Sexually Active? No [email or web address] Information not available 12/30/2024 Do You Have Smoke And Carbon Monoxide Detectors In Your Home? Yes [email or web address] Information not available 12/30/2024 How Much Tobacco Do You Smoke? 1 PPW [email or web address] Information not available 12/30/2024 Do You Use Sunscreen Routinely? No [email or web address] Information not available 12/30/2024 Has Tobacco Cessation Counseling Been Provided? No Information not available 12/30/2024 How Many Years Have You Smoked Tobacco? 35 [email or web address] Information not available 12/30/2024 Do You Have Difficulty Walking Or Climbing Stairs? No Information not available 12/30/2024 Sex: Unknown Functional Status Question Answer Note LastModified by Organization D etails LastModified Time Do you or have you ever used any other forms of tobacco or nicotine? No [email or web address] Information not available 12/30/2024 What is your level of alcohol consumption? None [email or web address] Information not available 12/30/2024 Are you currently employed? No [email or web address] Information not available 12/30/2024 Are you able to care for yourself? Yes [email or web address] Information n ot available 12/30/2024 Do you have difficulty dressing or bathing? No [email or web address] Information not available 12/30/2024 Mental Status None recorded. Family History Nothing Reported. Medical History Condition Response Allergies (Food, seasonal, environmental ) N Other Y Drug/Latex Allergies/Reactions N Breast Cancer N Blood Transfusion N Lung Disease N Dermatologic Disorders N Defects or Inherited Disease N Breast Problem N Gestational Diabetes N Hematologic disorders N Anesthesia Complications N History of STI N Deep Vein Thrombosis N Polycystic ovary syndrome N Anxiety Disorder N Autoimmune disease N Arthritis N Polyps N Infertility N History of abnormal pap N Acid Reflux (GERD) N Cancer N Varicosities N Stroke N Neurologic/Epilepsy N Endometriosis N High Cholesterol Y Headaches N Fibromyalgia N Kidney Disease N Heart Problems N Thyroid Problems N Kidney or Bladder Problems N GI Problems N Eating Disorder N Anemia N Art (IVF or FET) N Psychiatric Illness N Ovarian Cancer N Diabetes N Pulmonary (TB, Asthma) N Hepatitis/Liver Disease N No Past Medical History N Eczema N Urinary Tract Infection N Abuse/Domestic Violence N Asthma N Trauma/Violence N Depression/ depression N Heart Disease N Pre-Eclampsia N Hypertension N Osteoporosis N Thrombophilias N Gynecological History Statement/Question Response Date of LMP On BCP's at Conception? N STIs/STDs N HPV Vaccine N Current Control Method None Age at First Child 16 Date of Last Colonoscopy Sexually Active? N Date of DEXA bone scan Date of Last Pap Smear Sexual Problems? N Obstetrics History GPAL:G 2 P 2 0 0 2 Type Value Full Term 2 Living 2 Total 2 Past Encounters Encounter ID Performer Location Encounter Start Date Encounter Closed Date Diagnosis/Indication Diagnosis SNOMED-CT Code Diagnosis ICD10 Code Diagnosis Note [id number] SIDDHARTH Weinberg [place] [address] [address] 12/30/2024 09:48:35 12/30/2024 10:55:45 Candidiasis of skin 38508517 B37.2 health hx obtained and reviewedye ast rash on pannusrx nystatin powder - r/b/a reviewedke ep area clean/drye ncouraged pt to call back with her medication list for our records Screening for malignant neoplasm of breast 838945039 Z12.39 order for screening mammogram given Time spent in visit is a total of 20 mins with at least 50% of visit consisting of counseling and review of plan of care. Health Concerns Section Related Observation LastModified by Organization Detai ls LastModified Time None Recorded Concern Status LastModified by Organization Details LastModified Time None Recorded Advance Directives Directive None Recorded Payers Encounter Date Sequence Insurance Name Policy Number Policy Smith Covered Member ID Smith Member ID Guarantor Name 12/30/2024 2 [place] [employer] Yamilka Leslie [id number] Yamilka Leslie 12/30/2024 1 [facility] [id number] Yamilka Leslie [id number] Yamilka Leslie Notes Date Note Type Note Provider Name and Address Organization Details Recorded Time 12/30/2024 text/html 54yopresents for rash on pannusnoticed 4-5 days agored/itchy h/o of hyst, BSO for AUBcolonoscopy D/2024mammogram last 2 yrs ago on around 10 medications per pt for pain/depression/cho lesterol. She does not know the names of the medications. SIDDHARTH Weinberg [address], [place], [address], [facility] 12/30/2024 10:49:14 OBGyn Episode Ob Episode Information Episode Created Date Number of Fetuses Patient Bloodtype Patient rh Status Prepregnancy Weight lbs Domestic Partner Domestic Partner Phone Father Name [employer] Foreign Language Teacher Status 12/30/19 25 1 CLOSED Fetus Data First Name Last Name Admitted to NICU Weight (g) Sex Living Outcome Pediatric Complications Fetus ID Race Codes Race Delivery Type 3175.14 4 M Full Term [id number] Repeat Colton Calculation Initial Colton Date Initial Exam Date Initial Exam Provider Initial Ultrasound Date Last Menstrual Period Date Ultra Sound Weeks Gestation 0 Eighteen To Twenty Week Colton Update Ultra Sound Date Fundal Height At Umbil Quickening Date Ultra Sound Latest Weeks Gestation Final Colton Confirmed By Final Colton Confirmed Date Final Colton Date Ultra Sound Latest Days Gestation 0 0 Menstrual History Last Menstrual Date Menses Monthly On Bcp Conception Prior Menses Frequency Hcg Plus Date Menarche Onset Age Delivery Information Delivery Date Delivery Type Labor Anesthesia Weeks Gestation Incision Type Labor Labor Length Hrs Delivered By Post Complications Tubal Sterilization Discharge Date Comments Discharge Information Feeding Method Contraceptive Method Maternal HG B and HCT Levels Ob Episode Information Episode Created Date Number of Fetuses Patient Bloodtype Patient rh Status Prepregnancy Weight lbs Domestic Partner Domestic Partner Phone Father Name [employer] Foreign Language Teacher Status 12/30/19 25 1 CLOSED Fetus Data First Name Last Name Admitted to [facility] Weight (g) Sex Living Outcome Pediatric Complications Fetus ID Race Codes Race Delivery Type 3175.14 4 F Full Term [id number] Primary Colton Calculation Initial Colton Date Initial Exam Date Initial Exam Provider Initial Ultrasound Date Last Menstrual Period Date Ultra Sound Weeks Gestation 0 Eighteen To Twenty Week Colton Update Ultra Sound Date Fundal Height At Umbil Quickening Date Ultra Sound Latest Weeks Gestation Final Colton Confirmed By Final Colton Confirmed Date Final Colton Date Ultra Sound Latest Days Gestation 0 0 Menstrual History Last Menstrual Date Menses Monthly On Bcp Conception Prior Menses Frequency Hcg Plus Date Menarche Onset Age Delivery Information Delivery Date Delivery Type Labor Anesthesia Weeks Gestation Incision Type Labor Labor Length Hrs Delivered By Post Complications Tubal Sterilization Discharge Date Comments 7 Discharge Information Feeding Method Contraceptive Method Maternal HG B and HCT Levels
--- OUTSIDE RECORDS SUMMARY | 2025-04-18 20:21 | XMS_ITS | Data Portability ---
Author Organization MD - S [employer], Main Office Address [address] [place] [address] Assessment Encounter Date Assessment Date Assessment LastModified by Organization Details LastModified Time 07/30/2024 07/30/2024 Anal lump after bowel movements. Longstanding. Unable to visualize on physical exam today. Patient insistent that it is there and would like resolution. I offered exam under anesthesia to further evaluate. She is agreeable. We will schedule for EUA possible hip hemorrhoidectomy possible excision of mass. Risks and benefits were discussed. Risks include bleeding incontinence and infection [email or web address] 1 Not available 07/30/2024 13:05:45 09/01/2024 09/01/2024 s/p hemorrhoidectomy. Patient doing well. No post procedural concerns. f'u PRN [email or web address] 1 Not available 09/01/2024 13:41:04 Plan of Treatment Reminders Order Date Submit Date Provider Last Modified By Organization Details Last Modified Time Details Appointments Follow Up 30 2024 03:00P Jimmy Bunch NP Not available Not available Not available Lab CBC w/ auto diff 2024 025 [facility], [address] [place], [address], 03/18/2025 08:28:17 CMP, serum or plasma 2024 025 [facility], [address] [place], [address], 03/18/2025 08:28:17 lipid panel, serum 2024 025 [facility], [address] [place], [address], 03/18/2025 08:28:17 HbA1c (hemoglob in A1c), blood 2024 [facility], [address] [place], [address], 03/18/2025 08:28:17 vitamin D, 25-hydrox y, total, serum 2024 [facility], [address] [place], [address], 03/18/2025 08:28:16 TSH, serum or plasma [address] [place] [address] Outpatient Lab, [address] [place], [address], 03/18/2025 08:28:16 T4, free, serum [address] [place] [address] Outpatient Lab, [address] [place], [address], 03/18/2025 08:28:17 vitamin B12 + folate, serum or blood [address] [place] [address] Outpatient Lab, [address] [place], [address], 03/18/2025 08:28:16 Referral None recorded. Procedures None recorded. Surgeries None recorded. Imaging None recorded. Medication Orders sertralin e 100 mg tablet 2024 [facility] #92056, [address] [place] [address], [id number], 03/11/2025 16:03:25 alprazola m 0.5 mg tablet 2024 [place] [email or web address] #44773, [address], [id number], 03/11/2025 16:03:27 ergocalci ferol (vitamin D2) 1,250 mcg (50,000 unit) capsule [address] [facility] #61748, [address] [facility], [place], [place], [id number], 03/11/2025 16:03:19 Zepbound 2.5 mg/0.5 mL subcutane ous pen injector 20[email or web address] [place] [address] [facility] #29812, [address] [facility], [place], [place], [id number], 04/14/2025 18:14:37 cyanocoba meet (vit B-12) 1,000 mcg/mL injection solution [address] [facility] #19422, [address] [place] [address], [id number], 03/11/2025 16:03:21 alprazola m 0.5 mg tablet [address] [facility] #80184, [address] [place] [address], [id number], 02/08/2025 10:54:51 sertralin e 100 mg tablet [address] [facility] #91524, [address] [place] [address], [id number], 02/08/2025 10:54:53 trazodone 50 mg tablet 2023 024 [facility] #19042, [address] [place], [place], [id number], 02/08/2025 10:24:20 sertralin e 50 mg tablet 2023 024 [facility] #81223, [address] [place], [id number], 03/11/2025 15:48:26 Patient TargetsNo targets recorded. Patient InstructionsNo instructions recorded. Reason for Referral None Reported. Results Created Date Observation Date Name Description Value Unit Range Abnormal Flag Note LastModifiedBy Organization Detail LastModifiedTime 08/24/20 24 08/09/2024 morteza r monit or No observ ation record ed. [email or web address] Not Available 2023 10:30:50 09/30/20 24 09/30/2024 imagi ng inter preta tion No observ ation record ed. [email or web address] [facility] [address], [place], [address], 10/01/2024 14:23:45 10/09/20 24 10/09/2024 US, duple x, carot id arter y No observ ation record ed. [email or web address] [facility] [address], [place], [address], 12/11/2024 14:36:09 10/09/20 24 10/09/2024 US, david x, carot id arter y No observ ation record ed. [email or web address] [facility] [address], [place], [address], 12/11/2024 14:38:26 10/09/20 24 10/09/2024 US, doppl er, venou s No observ ation record ed. [email or web address] [facility] [address], [place], [address], 12/11/2024 14:39:11 Result Notes None recorded. 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 [employer] [facility] 3 15:52:12 Degenerati on of lumbar interverte bral disc 20036985 Active 2022 Not Available [facility] 4 23:27:52 Iron deficiency anemia 39256521 Active 2022 Not Available [facility] 4 23:27:52 Tobacco user 150542082 Active Not Available [facility] 4 23:27:51 Computed tomography result abnormal 798189559 Active Not Available [facility] 4 23:27:51 White blood cell abnormalit y 567105604 Active Not Available [facility] 4 23:27:52 Bipolar disorder 35722639 Active Not Available [facility] 4 23:27:52 Body mass index 30+ - obesity 027483695 Active 2019 Not Available [facility] 4 23:27:52 Liver function tests outside reference range 243663246 Active Not Available [facility] 4 23:27:52 Cobalamin deficiency 501853887 Active 2015 Not Available [facility] 4 23:27:52 Closed fracture dislocatio n of tarsometat arsal joint 275406450 Active 2018 Not Available [facility] 4 23:27:52 Abdominal pain 03851280 Active Not Available [facility] 4 23:27:52 Gastroesop hageal reflux disease 826609812 Active 2019 Not Available [facility] 4 23:27:52 Hypolipide miesha 392391082 Completed Not Available [facility] 3 00:49:57 Morbid obesity 908920426 Active 2019 Not Available [facility] 4 23:27:52 Headache 08067408 Active 2018 Not Available [facility] 4 23:27:52 Post-surgi melissa malabsorpt ion 599593142 Active 2020 Not Available [facility] 4 23:27:52 Edema 374576640 Active Not Available [facility] 4 23:27:52 Abdominal mass 391803712 Active Not Available [facility] 4 23:27:52 Low back pain 904503066 Active Not Available [facility] 4 23:27:52 Persistent hematuria 200869920 Active Not Available [facility] 4 23:27:52 Pain in toe 783539593 Active 2018 Not Available [facility] 4 23:27:52 Vitamin B12 deficiency (non anemic) 86680197 Active 2023 Yohana Malagon MD [address] [place] [address], [address] , [facility] [employer] 4 08:29:22 Chronic sciatica 040938757 Active 2019 Not Available [facility] 4 23:27:52 Osteopenia 518722429 Active 2019 Dexa 02/18 Not Available [facility] 4 23:27:52 Blood in urine 14408924 Active Not Available [facility] 4 23:27:52 Vitamin D deficiency 10629536 Active 2015 Not Available [facility] 4 23:27:52 Hypothyroi dism 76326808 Active Not Available [facility] 4 23:27:52 Obesity 234430210 Active Not Available [facility] 4 23:27:52 Anxiety 98845368 Active Not Available [facility] 4 23:27:52 Sprain of foot 48729591 Active 2019 Not Available [facility] 4 23:27:52 Dysuria 55858831 Active Not Available [facility] 4 23:27:52 Upper respirator y infection 45423973 Active Not Available [facility] 4 23:27:52 Hyperlipid emia 39303229 Active Not Available [facility] 4 23:27:52 Carpal tunnel syndrome 53792022 Active Not Available [facility] 4 23:27:52 History of bariatric surgical procedure 785770978 Active 2020 Not Available [facility] 4 23:27:52 Diarrhea 77140501 Active Not Available [facility] 4 23:27:52 Increased liver function 69485348 Active Not Available [facility] 4 23:27:52 Disorder of calcium metabolism 01295605 Active Not Available [facility] 4 23:27:52 Candidal vulvovagin itis 30410140 Active Not Available [facility] 4 23:27:52 Brachial neuritis 40313270 Active Not Available [facility] 4 23:27:52 Pelvic mass 16636370 Active Not Available [facility] 4 23:27:52 Urgent desire to urinate 37532268 Active Not Available [facility] 4 23:27:52 Fatigue 35949215 Active Not Available [facility] 4 23:27:52 Tobacco dependence syndrome 54391695 Active Not Available [facility] 4 23:27:52 Palpitatio ns 94562166 Active 2023 PH[facility] [address], [place] [address], [place], [address] , [employer] 4 12:17:14 Right lower quadrant pain 774540678 Active 2023 Elayne Wynne MD [address], [address], [place], [address] , [employer] [facility] [employer] 4 12:33:13 Hemorrhoid s 27694123 Active 2023 Dariusz reynolds MD [address], [place], [address] , [employer] 4 15:55:03 Mass of soft tissue 697705660 Active 2023 Dariusz reynolds MD [address], [place], [address] , [employer] [facility] 4 15:55:32 Insomnia 137539681 Active 2023 PH[facility] [address], [facility] [address], [place], [address] , [place] MD [employer] [facility] [employer] 4 11:27:06 Hyperthyro idism 02273451 Active 2024 PHILIP Delarosa [address], [facility] [address], [place], [address] , [place] MD [employer] 5 10:09:37 Notes:back/neck problems, ey e problems, urinary/bladder/kidney problems Problem Notes None recorded. Procedures Surgical History Date Name Laterality Status Provider Name and Address Organization Details Recorded Time 08/17/20 24 excision completed Phoebe Baker MA MD [employer] [facility] 08/26/2024 12:12:44 01/27/20 21 laparoscopic sleeve gastrectomy completed Not Available [facility] 01/30/2023 00:44:19 Imaging Results Imaging Date Name Status LastModified by Organization Details LastModified Time 08/09/2024 holter monitor completed [email or web address] [employer] not available 11/19/2024 10:30:50 09/30/2024 imaging interpretation completed [email or web address] [facility] [address], [place], [address], 10/01/2024 14:23:45 10/09/2024 US, duplex, carotid artery completed [email or web address] [facility] [address], [place], [address], 12/11/2024 14:36:09 10/09/2024 US, duplex, carotid artery completed [email or web address] [facility] [address], [place], [address], 12/11/2024 14:38:26 10/09/2024 US, doppler, venous completed [email or web address] [facility] [address], [place], [address], 12/11/2024 14:39:11 Procedure Notes None recorded. Medical Equipment None Reported. Allergies Allergen ID Allergen Name Allergen Category Reaction Reaction Severity Criticality Documentation Date Start Date Code Code System Note Provider Name and Address Organization Details Recorded Time 830 acetamino phen / oxycodone medicatio n Not available Not available Not available 01/30/2023 29477 3 RxNorm Not Available [facility] 3 00:56:29 831 nitrofura ntoin medicatio n Not available Not available Not available 01/30/2023 7454 RxNorm dizzi ness Not Available [facility] 3 00:56:29 832 latex environme nt,medica tion Not available Not available Not available 01/30/2023 19830 91 RxNorm only use paper tape Not Available [facility] 3 00:56:29 833 adhesive tape environme nt,medica tion Not available Not available Not available 01/30/2023 19501 UNK Not Available [facility] 3 00:56:29 Medications Name Sig Start Date Stop Date Status Note LastModified by Organization Details LastModified Time fluoxetin e 40 mg capsule TAKE 1 CAPSULE BY MOUTH ONCE DAILY WITH 20MG CAPSULE 04/15 completed Not Available Not Available Not Available cyclobenz aprine 10 mg tablet active Not Available Not Available No t Available furosemid e 40 mg tablet TK 1 T PO QD PRN 12/05 completed Not Available Not Available Not Available latanopro st 0.005 % eye drops INSTILL 1 DROP INTO BOTH EYES AT BEDTIME 02/08 completed Not Available Not Available Not Available atorvasta tin 40 mg tablet TAKE 1 TABLET BY MOUTH EVERY DAY active Not Available Not Available No t Available buspirone 5 mg tablet 04/10 completed Not Available Not Available Not Available fentanyl 50 mcg/hr transderm al patch 12/29 completed Not Available Not Available Not Available levothyro xine 175 mcg tablet TAKE 1 TABLET BY MOUTH EVERY DAY active Not Available Not Available No t Available nystatin 100,000 unit/mL oral suspensio n Take 10 mL 4 times a day by oral route for 7 days. 09/06 completed Not Available Not Available Not Available atorvasta tin 20 mg tablet TAKE 1 TABLET BY MOUTH EVERY DAY 02/08 completed Not Available Not Available Not Available tizanidin e 2 mg tablet 10/16 completed Not Available Not Available Not Available loperamid e 2 mg capsule 1 po q4 hours prn diarrhea active Not Available Not Available No t Available trazodone 50 mg tablet TAKE 1 TO 2 TABLETS BY MOUTH EVERY NIGHT 1 HOUR BEFORE BEDTIME FOR INSOMNIA 02/08 completed Not Available Not Available Not Available alprazola m 1 mg tablet TAKE 1 TABLET BY MOUTH TWICE DAILY 07/16 completed Not Available Not Available Not Available tizanidin e 4 mg tablet TAKE 1 TABLET BY MOUTH THREE TIMES DAILY active Not Available Not Available No t Available fluconazo le 150 mg tablet 1 po x 1 09/06 completed Not Available Not Available Not Available benzonata te 200 mg capsule TAKE 1 CAPSULE BY MOUTH THREE TIMES DAILY NEEDED 04/15 completed Not Available Not Available Not Available Nystop 100,000 unit/gram topical powder APPLY TOPICALL Y TO THE AFFECTED AREA TWICE DAILY 02/08 completed Not Available Not Available Not Available ondansetr on HCl 8 mg tablet TAKE 1 TABLET EVERY 8 HOURS NEEDED 01/02 completed Not Available Not Available Not Available meloxicam 15 mg tablet TAKE ONE TABLET DAILY 01/22 completed Not Available Not Available Not Available ondansetr on HCl 4 mg tablet TAKE 1 TABLET EVERY SIX HOURS NEEDED 09/01 completed Not Available Not Available Not Available [employer] gisela 8 mg tablet 12/29 completed Not Available Not Available Not Available prednison e 20 mg tablet TK 2 TS PO QD FOR 5 DAYS 01/02 completed Not Available Not Available Not Available sertralin e 100 mg tablet TAKE 1 TABLET BY MOUTH EVERY DAY active Not Available Not Available No t Available phentermi ne 15 mg capsule TAKE 1 CAPSULE BY MOUTH EVERY DAY active Not Available Not Available No t Available hydroxyzi ne pamoate 50 mg capsule active Not Available Not Available Not Available clotrimaz ole 1 % vaginal cream Insert 1 applicat orful every day by vaginal route at bedtime. 06/08 completed Not Available Not Available Not Available metronida zole 500 mg tablet TAKE 1 TABLET BY MOUTH TWICE DAILY FOR 14 DAYS 07/15 completed Not Available Not Available Not Available lidocaine HCl 2 % mucosal jelly 04/10 completed Not Available Not Available Not Available hydroxyzi ne HCl 50 mg tablet TAKE 1 TABLET BY MOUTH EVERY 6 HOURS NEEDED active Not Available Not Available No t Available ciproflox acin 250 mg tablet active Not Available Not Available No t Available sulfameth oxazole 800 mg-trimet hoprim 160 mg tablet Take 1 tablet every 12 hours by oral route for 7 days. 04/15 completed Not Available Not Available Not Available hydrocodo ne 10 mg-acetam inophen 325 mg tablet active Not Available Not Available Not Available triamcino lone acetonide 0.1 % topical cream APPLY A THIN LAYER TO THE AFFECTED AREA(S) BY TOPICAL ROUTE 2 TIMES PER DAY x 7 days prn active Not Available Not Available No t Available phentermi ne 30 mg capsule TAKE 1 CAPSULE BY MOUTH EVERY DAY active Not Available Not Available No t Available ketorolac 30 mg/mL (1 mL) injection solution 30 mg by injectio n route. 12/06 completed Not Available Not Available Not Available simvastat in 40 mg tablet TAKE 1 TABLET BY MOUTH EVERY DAY 02/01 completed Not Available Not Available Not Available lidocaine -prilocai ne 2.5 %-2.5 % topical cream 04/10 completed Not Available Not Available Not Available levothyro xine 100 mcg tablet po Q AM 11/28 completed Not Available Not Available Not Available alprazola m 0.5 mg tablet TAKE 1 TABLET BY MOUTH TWICE DAILY NEEDED active Not Available Not Available No t Available amoxicill in 875 mg tablet TAKE 1 TABLET EVERY 12 HOURS FOR 7 DAYS. active Not Available Not Available No t Available alprazola m 0.25 mg tablet TAKE 1 TABLET TWICE A DAY NEEDED 07/31 completed Not Available Not Available Not Available potassium chloride ER 20 mEq tablet,ex tended release(p art/cryst ) Take 1 tablet(s ) every day by oral route. 12/29 completed Not Available Not Available Not Available famotidin e 20 mg tablet TAKE ONE TABLET DAILY active Not Available Not Available No t Available prednisol one acetate 1 % eye drops,leandra pension INSTILL 1 DROP INTO RIGHT EYE FOUR TIMES DAILY AFTER THE JEFFERSON FOR 5 DAYS 02/08 completed Not Available Not Available Not Available methocarb sangeetha 750 mg tablet 04/10 completed Not Available Not Available Not Available estradiol 1 mg tablet TAKE 1 TABLET BY MOUTH EVERY DAY 2024 active Not Available Not Available Not Avai lable dicyclomi ne 20 mg tablet 1 po q6 hours prn abd pain active Not Available Not Available No t Available benzonata te 100 mg capsule TK 2 CS PO TID PRF COUGH active Not Available Not Available No t Available doxycycli ne monohydra te 100 mg capsule TAKE 1 CAPSULE BY MOUTH EVERY 12 HOURS FOR 14 DAYS 07/15 completed Not Available Not Available Not Available triamcino lone acetonide 40 mg/mL suspensio n for injection 1 ml IM x 1 09/01 completed Not Available Not Available Not Available levothyro xine 50 mcg tablet Take 1 tablet every day by oral route. active Not Available Not Available No t Available cephalexi n 500 mg capsule TAKE 1 CAPSULE BY MOUTH FOUR TIMES DAILY FOR 10 DAYS 07/15 completed Not Available Not Available Not Available pantopraz ole 40 mg tablet,de layed release TAKE 1 TABLET BY MOUTH EVERY DAY active Not Available Not Available No t Available simvastat in 20 mg tablet TAKE ONE TABLET DAILY AT BEDTIME active Not Available Not Available No t Available cyanocoba meet (vit B-12) 1,000 mcg/mL injection solution Inject 1 mL every month by subcutan eous route. 2024 active Not Available Not Available Not Avai lable levothyro xine 125 mcg tablet TAKE ONE TABLET DAILY 07/26 completed Not Available Not Available Not Available Cipro 500 mg tablet Take 1 tablet every 12 hours by oral route for 5 days. 03/20 completed Not Available Not Available Not Available prednison e 50 mg tablet 12/29 completed Not Available Not Available Not Available levothyro xine 150 mcg tablet TAKE 1 TABLET BY MOUTH EVERY DAY active Not Available Not Available No t Available dorzolami de 22.3 mg-timolo l 6.8 mg/mL eye drops 09/01 completed Not Available Not Available Not Available furosemid e 20 mg tablet 1 po qday prn edema active Not Available Not Available No t Available estradiol 0.5 mg tablet Take 1 tablet every day by oral route. active Not Available Not Available No t Available ergocalci ferol (vitamin D2) 1,250 mcg (50,000 unit) capsule TAKE 1 CAPSULE BY MOUTH WEEKLY active Not Available Not Available No t Available BD Tuberculi n Syringe 1 mL 25 gauge x 5/8 USE TO INJECT CYANOCOB ALAMIN DIRECTED 01/02 completed Not Available Not Available Not Available dexametha sone sodium phosphate 4 mg/mL injection solution 4 mg by injectio n route. 12/07 completed Not Available Not Available Not Available fentanyl 25 mcg/hr transderm al patch 12/29 completed Not Available Not Available Not Available polyethyl david glycol 3350 17 gram/dose oral powder Take by oral route for 30 days. 07/15 completed Not Available Not Available Not Available levofloxa meeta 750 mg tablet 12/29 completed Not Available Not Available Not Available methylpre dnisolone 4 mg tablets in a dose pack 07/15 completed Not Available Not Available Not Available albuterol sulfate HFA 90 mcg/actua tion aerosol inhaler INHALE 2 PUFFS BY MOUTH EVERY 4 HOURS NEEDED FOR SHORTNES S OF BREATH active Not Available Not Available No t Available timolol maleate 0.5 % eye drops 09/01 completed Not Available Not Available Not Available [employer] gisela 4 mg tablet TAKE ONE TABLET BY MOUTH EVERY 4 TO 6 HOURS NEEDED PAIN active Not Available Not Available No t Available morphine 15 mg immediate release tablet TAKE 1 TABLET BY MOUTH EVERY 4 TO 6 HOURS NEEDED. MAXIMUM OF 5 TABLETS DAILY 4 DAYS 10/16 completed Not Available Not Available Not Available cefdinir 300 mg capsule TK 1 C PO BID active Not Available Not Available No t Available fluoxetin e 20 mg capsule TAKE ONE CAPSULE BY MOUTH EVERY DAY WITH 40 MG CAPSULE 02/08 completed Not Available Not Available Not Available fluticaso ne propionat e 50 mcg/actua tion nasal spray,leandra pension SHAKE LIQUID AND USE 2 SPRAYS IN EACH NOSTRIL DAILY active Not Available Not Available No t Available sertralin e 50 mg tablet TAKE 1 TABLET BY MOUTH EVERY DAY 03/11 completed Not Available Not Available Not Available doxycycli ne hyclate 100 mg tablet Take 1 tablet twice a day by oral route for 7 days. 01/02 completed Not Available Not Available Not Available phentermi ne 37.5 mg capsule Take 1 capsule every day by oral route. 04/10 completed Not Available Not Available Not Available amoxicill in 875 mg-potass ium clavulana te 125 mg tablet Take 1 tablet every 12 hours by oral route for 10 days. active Not Available Not Available No t Available tobramyci n 0.3 %-dexamet hasone 0.1 % eye drops,leandra pension 06/20 completed Not Available Not Available Not Available enoxapari n 40 mg/0.4 mL subcutane ous syringe INJECT 0.4ML EVERY DAY BY SUBCUTAN EOUS SYRINGE active Not Available Not Available No t Available Premarin 0.625 mg tablet Take 1 tablet every day by oral route. active Not Available Not Available No t Available rosuvasta tin 20 mg tablet active Not Available Not Available Not Available nitrofura ntoin monohydra te/macroc rystals 100 mg capsule Take 1 capsule every 12 hours by oral route for 7 days. 08/20 completed Not Available Not Available Not Available Cymbalta 60 mg capsule,d elayed release Take 1 capsule twice a day by oral route. 2012 active Not Available Not Available Not Avai lable fentanyl 12 mcg/hr transderm al patch 12/29 completed Not Available Not Available Not Available fenofibra te 160 mg tablet Take 1 tablet every day by oral route. active Not Available Not Available No t Available pregabali n 150 mg capsule TAKE 1 CAPSULE BY MOUTH THREE TIMES DAILY 12/10 completed Not Available Not Available Not Available pregabali n 200 mg capsule TAKE 1 CAPSULE BY MOUTH EVERY 8 HOURS active Not Available Not Available No t Available Lyrica 75 mg capsule active Not Available Not Available Not Available Lyrica 100 mg capsule active Not Available Not Available Not Available Vicodin 2012 active 10/325 po q prn Not Available Not Available Not Available Ranexa 500 mg tablet,ex tended release Take 1 tablet every day by oral route. 04/10 completed Not Available Not Available Not Available Chantix 0.5 mg tablet active Not Available Not Available Not Available quetiapin e 50 mg tablet active Not Available Not Available Not Available diclofena c 1 % topical gel APPLY 4 GRAMS TOPICALL Y TO THE AFFECTED AREA EVERY 4 TO 6 HOURS active Not Available Not Available No t Available GaviLyte- G 236 gram-22.7 4 gram-6.74 gram-5.86 gram oral solution MIX AND DRINK DIRECTED 07/15 completed Not Available Not Available Not Available levothyro xine 100 mcg capsule po Q daily active Not Available Not Available No t Available Vitamin D3 125 mcg (5,000 unit) tablet 2012 active Not Available Not Available Not Avai lable fluoxetin e 60 mg tablet TAKE 1 TABLET BY MOUTH ONCE DAILY active Not Available Not Available No t Available Chantix Continuin g Month Box 1 mg tablet Take 1 tablet twice a day by oral route. 01/27 completed Not Available Not Available Not Available Chantix Starting Month Box 0.5 mg (11)-1 mg (42) tablets in dose pack take as directed active Not Available Not Available No t Available Myrbetriq 50 mg tablet,ex tended release Take 1 tablet every day by oral route for 30 days. 02/14 completed Not Available Not Available Not Available polyethyl david glycol (bulk) 09/01 completed Not Available Not Available Not Available Spiriva Respimat 2.5 mcg/actua tion solution for inhalatio n Inhale 2 puffs every day by inhalati on route. 12/29 completed Not Available Not Available Not Available fentanyl 37.5 mcg/hour transderm al patch 12/29 completed Not Available Not Available Not Available naloxone 4 mg/actuat ion nasal spray CALL 911. ADMINIST ER A SINGLE SPRAY INTRANAS ALLY INTO ONE NOSTRIL UPON SIGNS OF OPIOID OVERDOSE . MAY REPEAT AFTER 3 MINUTES IF NO RESPONSE . active Not Available Not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
--- OUTSIDE RECORDS SUMMARY | 2025-04-18 20:21 | XMS_ITS | Clinical Summary ---
Author Organization [facility] kajeet Address [address] [place] [address] Care Team Providers Care Microbiology Soil Scientist Name Role Phone Yohana Malagon MD Primary Care Provider [phone] Lillian Munson RN Unavailable Miguel Buckley MD Unavailable [phone] Source Comments [facility],non-owned Affiliates and Associated Physician Practices is amultiple site organization consisting of ambulatory clinics and hospital sitesin [place], [place], [place] and [place]. This disclosure is being madepursuant to the Care Everywhere program and may not contain all information available regarding this patient. Last updated 18.[facility] Allergies Active Allergy Reactions Criticality Noted Date Comments Acetaminophen Other 07/29/2017 Adhesive Sensitivity 07/21/2015 Use paper r tape otherwise she swells Latex Urticaria,Itching Medium 03/27/2016 Morphine Nausea and/or Vomiting 01/02/2023 Nitrofuran Derivatives Unknown 12/10/2023 Oxycodone Other 07/29/2017 Oxycodone-Acetaminophen Urticaria 04/14/2015 Medications * Be aware that medications may not be up to date on this document. Alwaysverify current medications with the patient. pregabalin (LYRICA) 150 MG capsule Take 1 (one) capsule by mouth 3 times daily Active simvastatin (ZOCOR) 20 MG tablet Take 1 (one) tablet by mouth at bedtime Active docusate sodium (COLACE) 100 MG capsule Take 1 Cap by mouth 2 times daily 60 Cap 1 09/09/20 15 Active polyethylene glycol 3350 (MIRALAX) packet Take 17 g by mouth once daily 30 Packet 1 09/09/20 15 Active FLUoxetine (PROZAC) 20 MG capsule 12/06/19 16 Active VOLTAREN 1 % gel Apply to affected area 4 times daily 12/06/19 16 Active famotidine (PEPCID) 20 MG tablet Take 1 (one) tablet by mouth once daily 04/05/20 16 Active potassium chloride (KLOR-CON M) 20 MEQ tablet Take 1 (one) tablet by mouth once daily 04/24/20 16 Active albuterol HFA (PROVENTIL; VENTOLIN; PROAIR) 108 (90 Base) MCG/ACT inhalerIndications :Other osteoarthritis of spine, thoracic region,Sacroiliac joint pain 11/27/20 16 Active cyanocobalamin (VITAMIN B-12) injectionIndicatio ns:Other osteoarthritis of spine, thoracic region,Sacroiliac joint pain INJECT 1ML INTO THE MUSCLE ONCE A WEEK FOR 4 WEEKS THEN REDUCE TO ONCE A MONTH THEREAFTER 0 11/28/20 16 Active vitamin D, ergocalciferol, (DRISDOL) 01429 UNITS capsuleIndications :Other osteoarthritis of spine, thoracic region,Sacroiliac joint pain 1 (one) capsule every 7 days 0 12/22/19 17 Active B-D TB SYRINGE 1CC/25GX5/8 25G X 5/8 1 ML MISCIndications:Ot her osteoarthritis of spine, thoracic region,Sacroiliac joint pain USE TO INJECT CYNOCOBALAMIN DIRECTED 0 11/28/20 16 Active dorzolamide-timolo l (COSOPT) 22.3-6.8 MG/ML ophthalmic solution 10/28/20 17 Active timolol maleate (TIMOPTIC) 0.5 % ophthalmic solution 11/01/20 17 Active levothyroxine (SYNTHROID) 125 MCG tablet 12/23/19 18 Active HYDROmorphone (DILAUDID) 4 MG tablet Take 1 (one) tablet by mouth every 6 hours as needed 05/16/20 18 Active triamcinolone acetonide (KENALOG) 0.1 % cream 05/06/20 18 Active estradiol (ESTRACE) 1 MG tablet Take 1 (one) tablet by mouth once daily 12/31/19 21 Active naloxone HCl (Narcan) 4 MG/0.1ML nasal spray [place] 1 (one) spray into the nose once 12/26/19 23 Active FLUoxetine (PROzac) 60 MG tablet 12/04/19 23 Active hydrOXYzine HCl (Atarax) 50 MG tablet Take 1 (one) tablet by mouth every 6 hours as needed 12/15/19 24 Active ALPRAZolam (Xanax) 0.5 MG tablet Take 1 (one) tablet by mouth once daily as needed 07/16/20 23 Active Active Problems Problem Noted Date Diagnosed Date S/P hysterectomy with oophorectomy 05/06/2024 Left hip pain 02/27/2024 Anemia 08/22/2016 Bariatric surgery status 09/22/2015 Obesity 08/31/2015 Bipolar disorder 08/31/2015 Low back pain 08/31/2015 Overview (08/22/2016): Overview: IMO load Nicotine dependence, uncomplicated 08/31/2015 Acquired absence of both cervix and uterus 08/31 Acquired absence of other sp ecified parts of digestive tract 08/31/2015 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 Hall AF, VSS WBC count 9k Exam with very mild erythema along wound edge <2cm from incision, no evidence of abscess or wound dehiscence at this time Plan: Bactrim DS recommended for antibiotics for 1 week Follow up as scheduled and to call with signs of worsening infection S/p Exploratory laparotomy, enterolysis lasting 2 hours, bilateral salpingo-oophorectomy 09/07/[address] Hall AF, VSS WBC count 9k Exam with very mild erythema along wound edge <2cm from incision, no evidence of abscess or wound dehiscence at this time Plan: Bactrim DS recommended for antibiotics for 1 week Follow up as scheduled and to call with signs of worsening infection Intra-abdominal and pelvic s welling, mass and lump, unspecified site 08/31/2015 05/06/2024 Pelvic mass 05/06/2024 Social History Tobacco Use Types Packs/Day Years Used Date Smoking Tobacco: Every Day Cigarettes 0.5 29 Smokeless Tobacco: Never Tobacco Cessation:Ready to Q uit: Not Asked; Counseling Given: Not Answered Comments:has tried chantix Cut down from 4 PPD to 0.5 PPD in 3 years. Alcohol Use Standard Drinks/Week Comments No 0 (1 standard drink = 0.6 oz pur e alcohol) AUDIT-C Answer Date Recorded Q1: How often do you have a drink containing alcohol? Never 02/25/2024 Q2: How many drinks containi ng alcohol do you have on a typical day when you are drinking? Patient does not drink Q3: How often do you have si x or more drinks on one occasion? Never 02/25/2024 Comments No Sex and Gender Information Value Date Recorded Sex Assigned at Not on file Legal Sex Female 2:50 PM CDT Gender Identity Not on file Sexual Orientation Not on file Last Filed Vital Signs Vital Sign Reading Time Taken Comments Blood Pressure 104/62 12/22/2024 12:55 PM WET PROCESS OPERATOR Pulse 97 12/22/2024 12:55 PM WET PROCESS OPERATOR Temperature 36.1 C (97 F) 12/22/2024 12:55 PM WET PROCESS OPERATOR Respiratory Rate 18 12/22/2024 12:55 PM WET PROCESS OPERATOR Oxygen Saturation 96% 03/17/2024 11:42 AM CDT Inhaled Oxygen Concentration - - Weight 64.9 kg (143 lb) 12/22/2024 12:55 PM WET PROCESS OPERATOR Height 149.9 cm (4' 11 ) 12/22/2024 12:55 PM WET PROCESS OPERATOR Body Mass Index 28.88 12/22/2024 12:55 PM WET PROCESS OPERATOR Plan of Treatment Health Maintenance Due Date Last Done Comments GEOVANY (AGES 45-75) - COLON CA SCREENING 1969 COLON MONITORING 1969 COLONOSCOPY - COLON CA SCREENING 1969 CT COLONOGRAPHY - COLON CA SCREENING 1969 Colorectal Cancer Screening 1969 FIT - COLON CA SCREENING 1969 FLEX SIG - COLON CA SCREENING 1969 MAMMOGRAM 1969 HIV SCREENING 1984 HEPATITIS C SCREENING 09/24/1987 DTAP/TDAP/TD VACCINES (1 - Tdap) 1988 HEPATITIS B VACCINE (1 of 3 - 19+ 3-dose series) 1988 PNEUMOCOCCAL VACCINE 50+ (1 of 2 - PCV) 1988 ZOSTER VACCINE (1 of 2) 2019 COVID-19 VACCINE (1 - season) 2024 MEDICARE AWV CALENDAR YEAR 2024 INFLUENZA VACCINE (Season Ended) 2025 10/21/2023, 09/06/2022, 08/31/2021, Additional history exists SCREENING FOR DIABETES 02/25/2027 , 02/25/2024, 09/14/2015, Additional history exists HIB VACCINE Aged Out No longer eligi ble based on patient's age to complete this topic HPV VACCINE Aged Out No longer eligi ble based on patient's age to complete this topic MENINGOCOCCAL (Group B) VACCINE SHARED DECISION-MAKING Aged Out No longer eligible based on patient's age to complete this topic MENINGOCOCCAL GROUPS A/C/Y/W VACCINE Aged Out No longer eligible based on patient's age to complete this topic Medical Devices Implanted Type Area Events Specialist Device Identifier Shelf Expiration Date Model / Serial / Lot Nilsa Restore Sens Stim Sure Scan Mri - [id number] Implanted:Qty: 1 on 07/22/2015 by Hans Taylor MD at [facility] Right: Back [employer] 04/28/2016 [id number] / [id number] / Nrstm Impl Chrnc Pain Rs2 - [id number] Implanted:Qty: 1 on 02/25/2024 by Hans Taylor MD at [facility] Right: Buttocks [employer] 01/15/2025 [id number] / [id number] / Procedures Procedure Name Priority Date/Time Associated Diagnosis Comments COMPREHENSIVE METABOLIC PANEL STAT 02/26/2024 11:03 PM CDT from Last 3 Months or Most Recently Relevant to Health Maintenance Results * (ABNORMAL) COMPREHENSIVE METABOLIC PANEL (02/26/2024 11:03 PM CDT) BUN 5(L) 7 - 26 mg/dL 02/27/2024 12:11 AM [facility] Creatinine 0.61 0.56 - 0.96 mg/dL 02/27/2024 12:11 AM [facility] Sodium 139 136 - 145 mmol/L 02/27/2024 12:11 AM [facility] Potassium 4.4 3.5 - 4.5 mmol/L 02/27/2024 12:11 AM [facility] Comment:Hemolysis detected i n this specimen. Hemolysis may cause false elevations in potassium leading to pseudohyperkalemia or masked hypokalemia. Recommend repeat testing if clinically indicated. Chloride 105 98 - 107 mmol/L 02/27/2024 12:11 AM [facility] CO2 24 22 - 29 mmol/L 02/27/2024 12:11 AM [facility] Glucose 75 70 - 115 mg/dL 02/27/2024 12:11 AM [facility] Calcium 8.4 8.4 - 10.2 mg/dL 02/27/2024 12:11 AM [facility] Protein Total 6.3 6.0 - 8.3 g/dL 02/27/2024 12:11 AM [facility] Comment:Hemolysis detected i n this specimen. Hemolysis is known to cause elevations in this analyte. Caution should be exercised in the interpretation of this result. Recommend repeat testing if clinically indicated. Albumin 3.4 3.4 - 5.0 g/dL 02/27/2024 12:11 AM [facility] Bilirubin Total 0.2 0.2 - 1.2 mg/dL 02/27/2024 12:11 AM [facility] Alkaline Phosphatase 79 40 - 150 U/L 02/27/2024 12:11 AM [facility] ALT 27 5 - 55 U/L 02/27/2024 12:11 AM [facility] AST 31 5 - 34 U/L 02/27/2024 12:11 AM [facility] Comment:Hemolysis detected i n this specimen. Hemolysis is known to cause elevations in this analyte. Caution should be exercised in the interpretation of this result. Recommend repeat testing if clinically indicated. Anion Gap 10 6 - 16 02/27/2024 12:11 AM [facility] BUN/Creatinine Ratio 8 7 - 23 01/31 12:11 AM [facility] Osmolality Calculated 284 275 - 295 mOsm/kg 02/27/2024 12:11 AM [facility] Albumin/Globulin Ratio 1.2 1.1 - 2.3 12:11 AM [facility] eGFR by CKD-EPI >90 >=90 mL/min/1. 73 m2 02/27/2024 12:11 AM [facility] Blood BLOOD SPECIMEN / Unknown Venipuncture / Unknown 02/26/2024 11:03 PM CDT 02/26/2024 11:18 PM T Rubio Long MD LAB - CHEMISTRY ORDERABLES Final Result [facility] [address] [place] [address], [facility] [phone] from Last 3 Months or Most Recently Relevant to Health Maintenance Insurance [facility] MEDICARE [facility]V [facility] MEDICAID MEDICARE MEDICARE MEDICARE PAYOR GENERIC Advance Directives * Full Code (Latest Code Status on File) Date Activated Date Inactivated Comments 09/07/2015 6:09 PM 09/09/2015 8:00 PM Care Teams Microbiology Soil Scientist Relationship Specialty Start Date End Date Yohana Malagon MD [address] [place] [address] [place] [id number] PCP - General Family Medicine 07/21/15 Lillian Munson, RN Fur Blower Operator 09/08/15 Miguel Buckley MD Orthopedic Surgery 12/04/18
--- OUTSIDE RECORDS SUMMARY | 2025-04-18 20:21 | XMS_ITS | Encounter Summary ---
Author Organization [facility] Address [address] [facility] [place] [address] Care Team Providers Care Group Tester Name Role Phone Yohana Malagon MD Primary Care Provider [phone] Lillian Munson RN Unavailable Miguel Buckley MD Unavailable [phone] Encounter Details Date Type Department Care Team (Late st Contact Info) Description 07/24/2018 Lab Requisition [facility] [address] [facility] [place] [id number] Yuki Goyal MD [address] [facility] [address] [place] [address] Social History Tobacco Use Types Packs/Day Years Used Date Smoking Tobacco: Every Day Cigarettes 0.5 29 Smokeless Tobacco: Never Comments:has tried chantix Alcohol Use Standard Drinks/Week Comments No 0 (1 standard drink = 0.6 oz pur e alcohol) Comments No Sex and Gender Information Value Date Recorded Sex Assigned at Not on file Legal Sex Female 2:50 PM CDT Gender Identity Not on file Sexual Orientation Not on file documented as of this encounter Functional Status * Is person deaf or have serious hearing difficulty? Answer Date of Assessment Author No 09/07/2015 6:15 PM CDT Mirna Gallegos * Is person blind or have serious difficulty seeing? Answer Date of Assessment Author No 09/07/2015 6:15 PM CDT Mirna Gallegos Latanya * Does person have serious difficulty walking/climbing stairs? Answer Date of Assessment Author No 09/07/2015 6:15 PM CDT Mirna Gallegos C * Does person have difficulty dressing/bathing? Answer Date of Assessment Author No 09/07/2015 6:15 PM CDT Mirna Gallegos C * Does person have difficulty doing errands alone? Answer Date of Assessment Author No 09/07/2015 6:15 PM CDT Mirna Gallegos Latanya documented as of this encounter Mental Status * Does person have difficulty concentrating/remembering/making decisions? Answer Entry Date Author No 09/07/2015 6:15 PM CDT Mirna Gallegos documented in this encounter Plan of Treatment Not on file documented as of this encounter Procedures Procedure Name Priority Date/Time Associated Diagnosis Comments DERMATOPATH TECHNICAL REPORT Routine 07/22/2018 12:00 AM CDT documented in this encounter Results * DERMATOPATH TECHNICAL REPORT (07/22/2018 12:00 AM CDT) Case Report Dermatopathology Report Case: [id number] Authorizing Provider: Yuki Goyal MD Collected: 07/22/2018 12:00 AM Pathologist: Jimmy Alcala MD Received: 07/24/2018 06:52 AM Specimens: A) - Skin, right lower abd B) - Skin, right ant thigh 8 11:34 AM CDT DERMATOPATHOLOGY LABORATORY Clinical History A: R/O nevus, vs acro irritated. B: R/O SCC, non-healing. 8 11:34 AM CDT DERMATOPATHOLOGY LABORATORY Gross Description Specimen A: Received is one formalin filled container labeled with the patient's name and designated right lower abd. The specimen consists of a shave measuring [id number], bisected. Jar 0. Specimen B: Received is one formalin filled container labeled with the patient's name and designated right ant thigh. The specimen consists of a shave measuring [id number]. Jar 0. [facility] Dermatopathology Laboratory performed the technical component only. 8 11:34 AM CDT DERMATOPATHOLOGY LABORATORY Embedded Images 8 11:34 AM CDT DERMATOPATHOLOGY LABORATORY DISCLAIMER An external and internal positive and negative controls are appropriate for the histochemical, immunohistochemical and immunofluorescence stain(s) in this case (if any), except where stated explicitly. The performance characteristics of the stain(s) cited in this report were developed and its performance characteristic determined by the Dermatopathology Laboratory at [facility]. These tests need not be, and therefore are not, approved by the [place] Food and Drug Administration. The tests are used for clinical purposes. 11:34 AM CDT DERMATOPATHOLOGY LABORATORY Pathology/Cytology TISSUE SPECIMEN FROM SKIN / Unknown 07/22/2018 07/24/2018 6:52 AM CDT Miscellaneous samples (specimen) TISSUE SPECIMEN FROM SKIN / Unknown 07/22/2018 07/24/2018 6:52 AM CDT Yuki Goyal MD LAB - PATHOLOGY/CYTOLOGY OR DERABLES Final Result Performing Organization Address City/State/[facility] Co de Phone Number DERMATOPATHOLOGY LABORATORY [facility] - Department of Dermatology [address] [place] [address], 5th Floor Lab [address] [phone] documented in this encounter Visit Diagnoses Not on filedocumented in this encounter Care Teams Group Tester Relationship Specialty Start Date End Date Yohana Malagon MD [address] [place] [address] [place] [address] PCP - General Family Medicine 07/21/15 Lillian Munson RN Application Spec 09/08/15 Miguel Buckley MD Orthopedic Surgery 12/04/18 documented as of this encounter
--- OUTSIDE RECORDS SUMMARY | 2025-04-18 20:21 | XMS_ITS | Patient Health Record ---
Author Organization [facility] Mariam gement Address [address] [employer] [facility] [address] [place] [address] Care Team Providers Care Chain Person Name Role Phone Mireya Malagon Primary Care Provider Solomon Palacios Unavailable [phone] Catalino Castillo Unavailable [phone] Allergies Allergen (clinical drug ingredient) Drug/Non Drug Allergy documented on EMR Reaction Allergy Type Onset Date Status tape (uncoded) Unknown Allergy Activ e acetaminophen / oxycodone Percocet Unknown Drug Allergy Active morphine Morphine nausea Drug Allergy Active Reason For Referral Reason Bilat L5 TF NELSON Diagnosis 1 Radiculopathy, lumba r region (M54.16) Referred Organization [facility] Referred Provider Solomon Zendejas [facility]erred Address [address] [email or web address] [facility], [place],[address], Referred Provider Specialty Pain Medicin e Procedure 1 LUMBAR SNRI (25556) General Notes No auth needed per A purvaP. at [facility] unless procedure is more than $5000. Call Ref is Richard.06/29/24Matt Erin 06/29/2024 01:41:04 PM > Referral Priority Routine Reason (B) L5 Transforamina l Diagnosis 1 Radiculopathy, lumbo sacral region (M54.17) Referred Organization [facility] Referred Provider Solomon Zendejas Referred Address [address] [facility],[place], [place],[address],[place] Referred Provider Specialty Pain Medicin e Procedure 1 LUMBAR SNRI (63485) General Notes no auth req if proce dure is under $5,000, call ref: [id number], call to [phone], Merle Steel 10/08/2024 01:07:34 PM > Referral Priority Routine Reason (B) L5 Transforamina l Diagnosis 1 Radiculopathy, lumbo sacral region (M54.17) Referred Organization [facility] Referred Provider Solomon Zendejas Referred Address [address] [facility],[place], [place],[address], Referred Provider Specialty Pain Medicin e Procedure 1 LUMBAR SNRI (63805) General Notes no auth per call to [phone] as long as procedure isn't over $5,000, call ref: mercedes [id number], no auth per [facility] portal, scanned in chart, Merle Steel 02/08/2025 03:50:43 PM > Referral Priority Routine Medications Medication SIG (Take, Route, Frequency, Duration) Notes Start Date End Date Status Estradiol Active Diclofenac Sodium 1 % APPLY 4 GRAMS TO T HE AFFECTED AREA EVERY 4-6 HOURS for 30 Active Latanoprost Active Lidocaine 5 % 1 application to aff ected area as needed Externally tid prn 06/21/2017 Active tiZANidine HCl 4 MG TAKE 1 TABLET BY YOON TH THREE TIMES DAILY for 30 days 09/05/2025 Active Furosemide 40 MG Act hector PROzac Active Dilaudid 4 MG 1 tablet as needed O rally every 4-6 hours prn pain - 5 1/2 pills per day for 30 days 04/07/2025 05/07/2025 Active Ventolin HFA Active Simvastatin Active Vitamin D 83937 IU A ctive Vitamin B-1 Active Xanax Active HYDROmorphone HCl 4 MG TAKE 1 TABLET BY MOUTH EVERY 4 TO 6 HOURS NEEDED FOR PAIN. MAXIMUM 5.5 TABLETS PER DAY Oral for 30 Days Active Social History Tobacco Use: Social History Observation Description Date Details (start date - stop date) Current Smoker NA - NA Tobacco Use/Smoking Question Answer Notes Are you a current smoker How often do you smoke cigarettes? every day How many cigarettes a day do you smoke? 6-10 Are you interested in quitting? Thinking about q uitting Alcohol Screen (Audit-C) Question Answer Notes Did you have a drink containing alcohol in the p ast year? 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 confirmed Problem Osteoarthritis of hip (020121986) Osteoarthritis of hip, unspecified (M16.9) Active confirmed Problem Solitary sacroiliitis (768741144) Sacroiliitis, not elsewhere classified (M46.1) Active confirmed Problem Lumbosacral radiculopathy (1553278) Radiculopathy, lumbosacral region (M54.17) Active confirmed Problem Spasm of back muscles (879475921) Muscle spasm of back (M62.830) Active confirmed Problem Post-laminectomy syndrome (10442617) Postlaminectomy syndrome, not elsewhere classified (M96.1) Active confirmed Vital Signs Heart Rate 78 /min 04/07/2025 Temperature 97.7 degrees Fahrenheit 04/07/2025 Respiratory Rate 20 /min 04/07/2025 Blood pressure diastolic 69 mm Hg 04/07/2025 Height 59 in 04/07/2025 Blood pressure systolic 99 mm Hg 04/07/2025 Weight 143 lbs 04/07/2025 BMI 28.88 kg/m2 04/07/2025 Encounters Encounter Location Date Provider Diagnosis [facility] [address] [phone] 05/11/2024 Solomon Zendejas Radiculopathy, lumbosacral region M54.17 and Postlaminectomy syndrome, not elsewhere classified M96.1 [facility] [address] [place] [phone] 06/10/2024 Solomon Zendejas Radiculopathy, lumbosacral region M54.17 and Postlaminectomy syndrome, not elsewhere classified M96.1 [facility] [address] [place] [phone] 07/03/2024 Solomon Zendejas Radiculopathy, lumbosacral region M54.17 ; Postlaminectomy syndrome, not elsewhere classified M96.1 and Fear of injections and transfusions F40.231 [facility] [address] [facility] [facility] [address] [place] [phone] 08/06/2024 Solomon Zendejas Radiculopathy, lumbosacral region M54.17 and Postlaminectomy syndrome, not elsewhere classified M96.1 [facility] [address] [facility] [facility] [place] [phone] 09/03/2024 Solomon Zendejas Radiculopathy, lumbosacral region M54.17 ; Sacroiliitis, not elsewhere classified M46.1 and Postlaminectomy syndrome, not elsewhere classified M96.1 [facility] [address] [place] [address] [place] [phone] 10/07/2024 Solomon Zendejas Radiculopathy, lumbosacral region M54.17 and Postlaminectomy syndrome, not elsewhere classified M96.1 [facility] [address] [facility] [address] [place] [phone] 10/12/2024 Solomon Zendejas Radiculopathy, lumbosacral region M54.17 [facility] [address] [facility] [address] [place] [phone] 11/10/2024 Catalino Margaritaberg Radiculopathy, lumbosacral region M54.17 ; Sacroiliitis, not elsewhere classified M46.1 and Postlaminectomy syndrome, not elsewhere classified M96.1 [facility] [address] [facility] [address] [place] [phone] 12/10/2024 Solomon Zendejas Radiculopathy, lumbosacral region M54.17 ; Sacroiliitis, not elsewhere classified M46.1 and Postlaminectomy syndrome, not elsewhere classified M96.1 [facility] [address] [facility] [address] [place] [phone] 01/07/2025 Solomon Zendejas Radiculopathy, lumbosacral region M54.17 ; Sacroiliitis, not elsewhere classified M46.1 and Postlaminectomy syndrome, not elsewhere classified M96.1 [facility] [address] [facility] [address] [place] [address] 02/08/2025 Solomon Zendejas Radiculopathy, lumbosacral region M54.17 and Postlaminectomy syndrome, not elsewhere classified M96.1 [facility] [address] [facility] [address] [place] [phone] 02/19/2025 Solomonrayray Crawleyman Radiculopathy, lumbosacral region M54.17 [facility] [address] [facility] [address] [place] [address] 03/09/2025 Catalino Granberg Radiculopathy, lumbosacral region M54.17 and Postlaminectomy syndrome, not elsewhere classified M96.1 [facility] [address] [facility] [address] [place] [phone] 04/07/2025 Solomonrayray Crawleyman Radiculopathy, lumbosacral region M54.17 and Postlaminectomy syndrome, not elsewhere classified M96.1 [facility] [address] [facility] [address] [place] [phone] 08/10/2024 Solomon Zendejas Radiculopathy, lumbosacral region M54.17 [facility] [address] [facility] [address] [place] [phone] 10/08/2024 Catalino Granberg Radiculopathy, lumbosacral region M54.17 [facility] [address] [facility] [address] [place] [phone] 11/11/2024 Catalino Granberg Radiculopathy, lumbosacral region M54.17 [facility] [address] [facility] [address] [place] [phone] 12/10/2024 Solomon Zendejas [facility] [address] [facility] [address] [place] [phone] 12/31/2024 Solomon Crawleyman Radiculopathy, lumbosacral region M54.17 [facility] [address] [facility] [address] [place] [address] 06/10/2024 Solomon Zendejas [facility] [address] [place] [address] [address] [place] [address] 10/07/2024 Solomon Zendejas [facility] [address] [place] [address] [address] [place] [address] 02/08/2025 Solomon Zendejas Assessments Encounter Date Diagnosis (ICD Code) Assessment Notes Treatment Notes Treatment Clinical Notes Section Notes 05/11/2024 Radiculopathy, lumbosacral region (ICD-10 - M54.17) 1. Her treatment plan includes a compliant medication regimen and interventional injections with Dr. Zendejas when clinically indicated. -Treatment plan goals for her include pain control and ability to perform activities of daily living. These goals are being met so her condition is stable. -She is at moderate to high risk of morbidity and mortality from her continued treatment plan. Risk level is determined by the following: Opioid use. 2. I am managing the prescription of Dilaudid 4 mg tablets to be taken every 4-6 hours as needed with a maximum of 5.5 tablets per day for chronic pain management. Side effects include but are not limited to the following: drowsiness, confusion, nausea, constipation, euphoria, and slowed breathing. 3. She continues to take Lyrica for neuropathic pain. She has refills on this medication through September 2024. 4. She also continues tizanidine as needed for muscle spasms. She has refills through September 2024. 5. She continues to use Voltaren 1% gel as part of her pain regimen. She states she does not need this medication refilled today. 6. Continue medication regimen; no changes are made today. 7. Return to the clinic in 30 days for medication management and re-evaluation. The patient and I reviewed any opioid and non-opioid medication being taken at this time. The patient has been taking the medication as prescribed. The patient has not been having any adverse effects or side effects with use of the medication. Risks and benefits of chronic opioid use were discussed, and the patient knows to contact our office with any questions or concerns. The medication is providing the patient enough pain relief for continuation of treatment. The patient states that the medication allows increased functionality to live their life. Conservative measures have been unsuccessful in the past, but the patient is aware that alternative treatments are available. Please see a record of any medication refills under the treatment section of this note. The patient will call with any questions or concerns. Current MME/day is 110 06/10/2024 Radiculopathy, lumbosacral region (ICD-10 - M54.17) 1. Treatment plan for this patient includes a compliant medication regimen and interventional injections with Dr. Zendejas when clinically indicated. -Goals for this treatment plan include pain control and ability to perform activities of daily living. These goals are being met so this patient's condition is stable. -She is at moderate to high risk of morbidity and mortality from her continued treatment plan. Risk level is determined by the following: Opioid use. 2. I am managing the prescription of Dilaudid 4 mg tablets to be taken every 4-6 hours as needed with a maximum of 5.5 tablets per day for chronic pain management. Side effects include but are not limited to the following: drowsiness, confusion, nausea, constipation, euphoria, and slowed breathing. 3. She continues Lyrica for neuropathic pain. She has refills through September 2024. 4. She also continues to take tizanidine as needed for muscle spasms. She has refills on this medication through September 2024. 5. She continues Voltaren 1% gel as part of her pain regimen. This was electronically sent to her pharmacy today with 2 additional refills. 6. Continue medication regimen; no changes are made today. 7. Return to the clinic in 30 days for bilateral L5 transforaminal epidural steroid injection with Dr. Zendejas, medication management and re-evaluation. She last had this injection in January 2024 and states she received about 80% relief from her chronic low back pain. She states this relief lasted her about 6 weeks. The patient and I reviewed any opioid and non-opioid medication being taken at this time. The patient has been taking the medication as prescribed. The patient has not been having any adverse effects or side effects with use of the medication. Risks and benefits of chronic opioid use were discussed, and the patient knows to contact our office with any questions or concerns. The medication is providing the patient enough pain relief for continuation of treatment. The patient states that the medication allows increased functionality to live their life. Conservative measures have been unsuccessful in the past, but the patient is aware that alternative treatments are available. Please see a record of any medication refills under the treatment section of this note. The patient will call with any questions or concerns. Current MME/day is 110 07/03/2024 Radiculopathy, lumbosacral region (ICD-10 - M54.17) The patient and I reviewed any opioid and nonopioid medication being taken at this time. The patient has been taking the medication as prescribed. The patient has not been having any adverse effects or side effects with use of the medication. Risk and benefits of chronic opioid use were discussed, and the patient knows to contact our office with any questions or concerns. The medication is providing the patient enough pain relief for continuation of the treatment. The patient states that the medication allows increased functionality to live their lives. Conservative measures have been unsuccessful in the past, but the patient is aware that alternative treatments are available. Please see a record of any medication refill under the treatment section of this note. =The patient will call with any questions or concerns. The patient will follow up in one month for medical management. Lumbar radicular pains patient primary diagnosis of going proceed today with a bilateral L5 transforaminal epidural steroid injection. Patient tolerated very well call in question concerns 08/06/2024 Radiculopathy, lumbosacral region (ICD-10 - M54.17) 1. Her treatment plan includes continuing a compliant medication regimen and interventional injections with Dr. Zendejas when clinically indicated. -Goals for her treatment plan include pain control and ability to perform activities of daily living. These goals are being met so her condition is considered stable. -She is at moderate to high risk of morbidity and mortality from her continued treatment plan. Her risk level is determined by the following: Opioid use. 2. I am managing the prescription of Dilaudid 4 mg tablets to be taken every 4-6 hours as needed with a maximum of 5.5 tablets per day for chronic pain management. Side effects include but are not limited to the following: drowsiness, confusion, nausea, constipation, euphoria, and slowed breathing. 3. She continues to take Lyrica for neuropathic pain. She has refills good through September 2024. 4. She also continues tizanidine as needed for muscle spasms. She has refills on this medication through September 2024. 5. She continues to use Voltaren 1% gel as part of her pain regimen. She has refills of this medication left at her pharmacy. 6. Continue medication regimen; no changes are made today. 7. Return to the clinic in 30 days for medication management and re-evaluation. The patient and I reviewed any opioid and non-opioid medication being taken at this time. The patient has been taking the medication as prescribed. The patient has not been having any adverse effects or side effects with use of the medication. Risks and benefits of chronic opioid use were discussed, and the patient knows to contact our office with any questions or concerns. The medication is providing the patient enough pain relief for continuation of treatment. The patient states that the medication allows increased functionality to live their life. Conservative measures have been unsuccessful in the past, but the patient is aware that alternative treatments are available. Please see a record of any medication refills under the treatment section of this note. The patient will call with any questions or concerns. Current MME/day is 110 08/10/2024 Radiculopathy, lumbosacral region (ICD-10 - M54.17) 09/03/2024 Radiculopathy, lumbosacral region (ICD-10 - M54.17) 1. This patient's treatment plan includes adherence to a prescribed medication regimen. The goals for this treatment plan include pain control and the ability to perform activities of daily living. These goals are being met, indicating that the patient's condition is stable. The patient is at high risk of morbidity and mortality from their continued treatment plan. Risk level is determined by the following: opioid use. 2. I am managing the prescription of Dilaudid 4 mg tablets to be taken every 4-6 hours as needed with a maximum of 5.5 tablets per day for chronic pain management. Side effects include but are not limited to the following: drowsiness, confusion, nausea, constipation, euphoria, and slowed breathing. 3. She continues to take Lyrica for neuropathic pain. Refilled today. She has refills good through March 2025. 4. She also continues tizanidine as needed for muscle spasms. Refilled today. She has refills good through March 2025. 5. She continues to use Voltaren 1% gel as part of her pain regimen. She has refills of this medication left at her pharmacy. 4. Continue medication regimen; no changes were made today. 5. Please schedule a follow-up appointment in 30 days for medication management and reevaluation. 6. The patient and I discussed all current opioid and non-opioid medications. The patient has been adhering to the prescribed medication regimen. The patient has not experienced any adverse reactions, or side effects from their prescribed medication. The potential risks and/or benefits of long-term opioid use were discussed with the patient and they are aware to reach out to our office with any questions or concerns. The patient states that this medication is effectively managing their pain and warrants continuation of treatment. The patient reports that the medication has improved their ability to engage in daily activities and live a more functional life. While conservative measures have not yielded positive results previously the patient acknowledges that alternative treatment options are accessible. Current MME/ day is 110 10/07/2024 Radiculopathy, lumbosacral region (ICD-10 - M54.17) 1. Treatment plan for this patient includes continuing to maintain a compliant medication regimen and interventional injections with Dr. Zendejas when clinically indicated. -Goals for this treatment plan include pain control and ability to perform activities of daily living. These goals are being met so this patient's condition is considered to be stable. -She is at moderate to high risk of morbidity and mortality from her continued treatment plan. Risk level is determined by the following: Opioid use. 2. I am managing the prescription of Dilaudid 4 mg tablets to be taken every 4-6 hours as needed with a maximum of 5.5 tablets per day for chronic pain management. Side effects include but are not limited to the following: drowsiness, confusion, nausea, constipation, euphoria, and slowed breathing. 3. She continues Lyrica for neuropathic pain. She has refills on this medication through March 2025. 4. She also continues to take tizanidine as needed for muscle spasms. She has refills good through March 2025. 5. She continues Voltaren 1% topical gel as part of her pain regimen. She states that she does not need this refilled today. 6. Continue medication regimen; no changes are made today. 7. Return to the clinic in 30 days for bilateral L5 transforaminal epidural steroid injection with Dr. Zendejas, medication management and re-evaluation. She last had this injection in July 2024. She states this injection provided her with approximately 80% relief from her chronic low back pain and states that this relief lasted for about 8 weeks. The patient and I reviewed any opioid and non-opioid medication being taken at this time. The patient has been taking the medication as prescribed. The patient has not been having any adverse effects or side effects with use of the medication. Risks and benefits of chronic opioid use were discussed, and the patient knows to contact our office with any questions or concerns. The medication is providing the patient enough pain relief for continuation of treatment. The patient states that the medication allows increased functionality to live their life. Conservative measures have been unsuccessful in the past, but the patient is aware that alternative treatments are available. Please see a record of any medication refills under the treatment section of this note. The patient will call with any questions or concerns. Current MME/day is 110 10/08/2024 Radiculopathy, lumbosacral region (ICD-10 - M54.17) 10/12/2024 Radiculopathy, lumbosacral region (ICD-10 - M54.17) Lumbar sacral radicular pain. We are going do a bilateral L5 transforaminal epidural steroid injection under fluoroscopy. Patient tolerated well The patient and I reviewed any opioid and nonopioid medication being taken at this time. The patient has been taking the medication as prescribed. The patient has not been having any adverse effects or side effects with use of the medication. Risk and benefits of chronic opioid use were discussed, and the patient knows to contact our office with any questions or concerns. The medication is providing the patient enough pain relief for continuation of the treatment. The patient states that the medication allows increased functionality to live their lives. Conservative measures have been unsuccessful in the past, but the patient is aware that alternative treatments are available. Please see a record of any medication refill under the treatment section of this note. =The patient will call with any questions or concerns. The patient will follow up in one month for medical management. 11/10/2024 Radiculopathy, lumbosacral region (ICD-10 - M54.17) 1. This patient's treatment plan includes adherence to a prescribed medication regimen. The goals for this treatment plan include pain control and the ability to perform activities of daily living. These goals are being met, indicating that the patient's condition is stable. The patient is at high risk of morbidity and mortality from their continued treatment plan. Risk level is determined by the following: opioid use. 2. I am managing the prescription of Dilaudid 4 mg tablets to be taken every 4-6 hours as needed with a maximum of 5.5 tablets per day for chronic pain management. Side effects include but are not limited to the following: drowsiness, confusion, nausea, constipation, euphoria, and slowed breathing. 3. She continues to take Lyrica for neuropathic pain. Refilled today. She has refills good through March 2025. 4. She also continues tizanidine as needed for muscle spasms. She has refills good through March 2025. 5. She continues to use Voltaren 1% gel as part of her pain regimen. She has refills of this medication left at her pharmacy. 6. Continue medication regimen; no changes were made today. 7. Please schedule a follow-up appointment in 30 days for medication management and reevaluation. 8. The patient and I discussed all current opioid and non-opioid medications. The patient has been adhering to the prescribed medication regimen. The patient has not experienced any adverse reactions, or side effects from their prescribed medication. The potential risks and/or benefits of long-term opioid use were discussed with the patient and they are aware to reach out to our office with any questions or concerns. The patient states that this medication is effectively managing their pain and warrants continuation of treatment. The patient reports that the medication has improved their ability to engage in daily activities and live a more functional life. While conservative measures have not yielded positive results previously the patient acknowledges that alternative treatment options are accessible. Current MME/ day is 110 11/11/2024 Radiculopathy, lumbosacral region (ICD-10 - M54.17) 12/10/2024 Sacroiliitis, not elsewhere classified (ICD-10 - M46.1) 12/10/2024 Radiculopathy, lumbosacral region (ICD-10 - M54.17) 1. This patient's treatment plan includes adherence to a prescribed medication regimen. The goals for this treatment plan include pain control and the ability to perform activities of daily living. These goals are being met, indicating that the patient's condition is stable. The patient is at high risk of morbidity and mortality from their continued treatment plan. Risk level is determined by the following: opioid use. 2. I am managing the prescription of Dilaudid 4 mg tablets to be taken every 4-6 hours as needed with a maximum of 5.5 tablets per day for chronic pain management. Side effects include but are not limited to the following: drowsiness, confusion, nausea, constipation, euphoria, and slowed breathing. 3. She continues to take Lyrica for neuropathic pain. Refilled today. She has refills good through March 2025. 4. She also continues tizanidine as needed for muscle spasms. She has refills good through March 2025. 5. She continues to use Voltaren 1% gel as part of her pain regimen. She has refills of this medication left at her pharmacy. 6. Random urine drug screen performed in the office today. 7. Continue medication regimen; no changes were made today. 8. Please schedule a follow-up appointment in 30 days for medication management and reevaluation. 9. The patient and I discussed all current opioid and non-opioid medications. The patient has been adhering to the prescribed medication regimen. The patient has not experienced any adverse reactions, or side effects from their prescribed medication. The potential risks and/or benefits of long-term opioid use were discussed with the patient and they are aware to reach out to our office with any questions or concerns. The patient states that this medication is effectively managing their pain and warrants continuation of treatment. The patient reports that the medication has improved their ability to engage in daily activities and live a more functional life. While conservative measures have not yielded positive results previously the patient acknowledges that alternative treatment options are accessible. Current MME/ day is 110 12/31/2024 Radiculopathy, lumbosacral region (ICD-10 - M54.17) 01/07/2025 Radiculopathy, lumbosacral region (ICD-10 - M54.17) 1. This patient's treatment plan includes adherence to a prescribed medication regimen. The goals for this treatment plan include pain control and the ability to perform activities of daily living. These goals are being met, indicating that the patient's condition is stable. The patient is at high risk of morbidity and mortality from their continued treatment plan. Risk level is determined by the following: opioid use. 2. I am managing the prescription of Dilaudid 4 mg tablets to be taken every 4-6 hours as needed with a maximum of 5.5 tablets per day for chronic pain management. Side effects include but are not limited to the following: drowsiness, confusion, nausea, constipation, euphoria, and slowed breathing. 3. She continues to take Lyrica for neuropathic pain. She has refills good through March 2025. 4. She continues tizanidine as needed for muscle spasms. She has refills good through March 2025. 5. She also continues to use Voltaren 1% gel as part of her pain regimen. She has refills of this medication left at her pharmacy. 6. She had a urine drug screen done on 12/10/24, Yamilka is compliant with her hydrocodone, but showed negative with her Lyrica. Yamilka states she doesn't always take her Lyrica. Yamilka was counseled on taking her Lyrica as prescribed to better help with her pain regimen. 7. Continue medication regimen; no changes were made today. 8. Please schedule a follow-up appointment in 30 days for medication management and reevaluation. 9. The patient and I discussed all current opioid and non-opioid medications. The patient has been adhering to the prescribed medication regimen. The patient has not experienced any adverse reactions, or side effects from their prescribed medication. The potential risks and/or benefits of long-term opioid use were discussed with the patient and they are aware to reach out to our office with any questions or concerns. The patient states that this medication is effectively managing their pain and warrants continuation of treatment. The patient reports that the medication has improved their ability to engage in daily activities and live a more functional life. While conservative measures have not yielded positive results previously the patient acknowledges that alternative treatment options are accessible. Current MME/ day is 110 02/08/2025 Radiculopathy, lumbosacral region (ICD-10 - M54.17) 1. Her treatment plan includes a compliant medication regimen and interventional injections with Dr. Zendejas when clinically indicated. -Goals for her treatment plan include pain control and ability to perform activities of daily living. These goals are being met so her condition is stable. -She is at moderate to high risk of morbidity and mortality from her continued treatment plan. Risk level is determined by the following: Opioid use. 2. I am managing the prescription of Dilaudid 4 mg tablets to be taken every 4-6 hours as needed with a maximum of 5.5 tablets per day for chronic pain management. Side effects include but are not limited to the following: drowsiness, confusion, nausea, constipation, euphoria, and slowed breathing. 3. She continues Lyrica for neuropathic pain. She has refills through March 2025. 4. She also continues tizanidine as needed for muscle spasms. She has refills good through March 2025. 5. She continues to use Voltaren 1% topical gel as needed as part of her pain regimen. She states that she has refills remaining at her pharmacy. 6. Continue medication regimen; no changes are made today. 7. Return to the clinic in 30 days for Bilateral L5 transforaminal epidural steroid injection with Dr. Zendejas, medication management and re-evaluation. She last had this injection in October 2024. She states she received about 75% relief from her chronic low back pain and reports that this relief lasted for about 6 weeks. The patient and I reviewed any opioid and non-opioid medication being taken at this time. The patient has been taking the medication as prescribed. The patient has not been having any adverse effects or side effects with use of the medication. Risks and benefits of chronic opioid use were discussed, and the patient knows to contact our office with any questions or concerns. The medication is providing the patient enough pain relief for continuation of treatment. The patient states that the medication allows increased functionality to live their life. Conservative measures have been unsuccessful in the past, but the patient is aware that alternative treatments are available. Please see a record of any medication refills under the treatment section of this note. The patient will call with any questions or concerns. Current MME/day is 110 02/19/2025 Radiculopathy, lumbosacral region (ICD-10 - M54.17) 03/09/2025 Radiculopathy, lumbosacral region (ICD-10 - M54.17) 1. Treatment plan for her includes continuing a compliant medication regimen and interventional injections with Dr. Zendejas when clinically indicated. -Goals for her treatment plan include pain control and ability to perform activities of daily living. These goals are being met so her condition is considered stable. -She is at moderate to high risk of morbidity and mortality from her continued treatment plan. Risk level is determined by the following: Opioid use. 2. I am managing the prescription of Dilaudid 4 mg tablets to be taken every 4-6 hours as needed with a maximum of 5.5 tablets per day for chronic pain management. Side effects include but are not limited to the following: drowsiness, confusion, nausea, constipation, euphoria, and slowed breathing. 3. She continues Lyrica for neuropathic pain. Side effects of this medication include but are not limited to: drowsiness, GI upset, mood changes, swelling of the upper and lower extremities, blurry vision, and dry mouth. This was sent to her pharmacy today with no additional refills. She states that she takes this medication very sparingly and not on a daily basis. 4. She also continues tizanidine as needed for muscle spasms. Side effects of this medication include but are not limited to the following: Drowsiness, fatigue, dizziness, depression, and hypotension. This was sent to her pharmacy today with 5 additional refills. She now has refills through September 2025. 5. She continues to use Voltaren 1% gel as needed as part of her pain regimen. She states that she has refills remaining at her pharmacy. 6. Continue medication regimen; no changes are made today. 7. Return to the clinic in 30 days for medication management and re-evaluation. The patient and I reviewed any opioid and non-opioid medication being taken at this time. The patient has been taking the medication as prescribed. The patient has not been having any adverse effects or side effects with use of the medication. Risks and benefits of chronic opioid use were discussed, and the patient knows to contact our office with any questions or concerns. The medication is providing the patient enough pain relief for continuation of treatment. The patient states that the medication allows increased functionality to live their life. Conservative measures have been unsuccessful in the past, but the patient is aware that alternative treatments are available. Please see a record of any medication refills under the treatment section of this note. The patient will call with any questions or concerns. Current MME/day is 110 04/07/2025 Radiculopathy, lumbosacral region (ICD-10 - M54.17) 1. This patient's treatment plan includes continuing a compliant medication regimen and interventional injections with Dr. Zendejas when clinically indicated. -Goals for this treatment plan include pain control and ability to perform activities of daily living. These goals are being met so this patient's condition is considered to be stable. -She is at moderate to high risk of morbidity and mortality from her continued treatment plan. Risk level is determined by the following: Opioid use. 2. I am managing the prescription of Dilaudid 4 mg tablets to be taken every 4-6 hours as needed with a maximum of 5.5 tablets per day for chronic pain management. Side effects include but are not limited to the following: drowsiness, confusion, nausea, constipation, euphoria, and slowed breathing. 3. She continues Lyrica for neuropathic pain. She reports that she takes this medication very sparingly and not on a daily basis. Therefore she does not need a refill today. 4. She also continues tizanidine as needed for muscle spasms. She has refills through September 2025. 5. She continues to use Voltaren 1% gel as needed as part of her pain regimen. She states that she has refills remaining at her pharmacy. 6. Continue medication regimen; no changes are made today. 7. Return to the clinic in 30 days for medication management and re-evaluation. The patient and I reviewed any opioid and non-opioid medication being taken at this time. The patient has been taking the medication as prescribed. The patient has not been having any adverse effects or side effects with use of the medication. Risks and benefits of chronic opioid use were discussed, and the patient knows to contact our office with any questions or concerns. The medication is providing the patient enough pain relief for continuation of treatment. The patient states that the medication allows increased functionality to live their life. Conservative measures have been unsuccessful in the past, but the patient is aware that alternative treatments are available. Please see a record of any medication refills under the treatment section of this note. The patient will call with any questions or concerns. Current MME/day is 110 04/07/2025 Postlaminectomy syndrome, not elsewhere classified (ICD-10 - M96.1) 03/09/2025 Postlaminectomy syndrome, not elsewhere classified (ICD-10 - M96.1) 02/08/2025 Postlaminectomy syndrome, not elsewhere classified (ICD-10 - M96.1) 01/07/2025 Sacroiliitis, not elsewhere classified (ICD-10 - M46.1) 12/10/2024 Postlaminectomy syndrome, not elsewhere classified (ICD-10 - M96.1) 11/10/2024 Sacroiliitis, not elsewhere classified (ICD-10 - M46.1) 10/07/2024 Postlaminectomy syndrome, not elsewhere classified (ICD-10 - M96.1) 09/03/2024 Sacroiliitis, not elsewhere classified (ICD-10 - M46.1) 08/06/2024 Postlaminectomy syndrome, not elsewhere classified (ICD-10 - M96.1) 07/03/2024 Postlaminectomy syndrome, not elsewhere classified (ICD-10 - M96.1) 06/10/2024 Postlaminectomy syndrome, not elsewhere classified (ICD-10 - M96.1) 05/11/2024 Postlaminectomy syndrome, not elsewhere classified (ICD-10 - M96.1) 07/03/2024 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 The risk of this procedure were discussed with the patient in which they verbalized understanding and wished to proceed. The patient will continue to be a part of an active comprehensive pain management program as tolerated, while and after the treatment plan is carried out. Continuation of these procedures are due to the recurrence of pain in the same location relieved with ESIs for at least 3 months . Patients primary care provider has been notified regarding continuation of procedures and prolonged repeat steroid use. Plan Of Treatment Pending Test Test Name Order Date Ct Lumbar Spine with and without contras t 06/11/2022 CT Lumbar Spine without contrast 022 Next Appt Details Provider Name:Solomon ratliff, 05/05/2025 11:45:00 AM, [id number] [place] [address], [address], [place], [address], Insurance Providers Payer Name Payer Address Payer Phone Subscriber Number Group Number Insured Name Patient Relationship to Insured Coverage Start Date Coverage End Date [facility] [address] [place] [address] [id number] Yamilka Leslie Self - patient is the insured [facility] [address] [place] [address] [id number] Yamilka Leslie Self - patient is the insured Medical (General) History Medical History History ICD Code depression spinal cord stimulator Surgical History Surgery Date(Month/Year) spinal cord stimulator- Dr. Colmenares 06/2010 hemroid surgery 01/28/2019 appendix 01/31/2019 spinal cord stimulator 01/2024 Hospitalization History Reason Date(Month/Year) fall ([facility]) 02/19 24 UTI 12/2018
--- OUTSIDE RECORDS SUMMARY | 2025-04-18 20:22 | XMS_ITS ---
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 Tender Name Role Phone MD JAY MILLAN Unavailable YAMINI LEWIS Unavailable ALLERGIES, ADVERSE REACTIONS AND ALERTS Allergy Name Allergy Date Allergy Status Allergy Severity Allergy Reaction Latex, [RxNorm: 2429084] 12/10/2023 Current Nitrofuran Derivatives, [Snomed: [id number]] 12/10/2023 Current Adhesive Tape 12/10/2023 Current PROBLEMS Problem Code Problem Description Problem Status Problem Da te Problem End Date E03.9-HYPOTHYROIDISM, UNSPECIFIED HYPOTHYROIDISM, UNSPECIFIED Current 12/10/2023 Z98.84-BARIATRIC SURGERY STATUS BARIATRIC SURGERY STATUS Current 12/10/2023 E78.5-HYPERLIPIDEMIA, UNSPECIFIED HYPERLIPIDEMIA, UNSPECIFIED Current 12/10/2023 F31.9-Bipolar disorder, unspecified Bipolar disorder, unspecified Current 12/10/2023 F41.9-ANXIETY DISORDER, UNSPECIFIED ANXIETY DISORDER, UNSPECIFIED Current 12/10/2023 R10.13-EPIGASTRIC PAIN EPIGASTRIC PAIN Current 12/10/2023 F17.290-Nicotine dependence, other tobacco product, uncomplicated Nicotine dependence, other tobacco product, uncomplicated Current 12/10/2023 R10.9-UNSPECIFIED ABDOMINAL PAIN UNSPECIFIED ABDOMINAL PAIN Current 12/25/2023 M94.0-CHONDROCOSTAL JUNCTION SYNDROME [TIETZE] CHONDROCOSTAL JUNCTION SYNDROME [TIETZE] Current 12/25/2023 R11.2-NAUSEA WITH VOMITING, UNSPECIFIED NAUSEA WITH VOMITING, UNSPECIFIED Current 12/25/2023 K21.8-IEXNAD-TRVAOZTC AL REFLUX DISEASE WITHOUT ESOPHAGITIS GASTRO-ESOPHAGEAL REFLUX DISEASE WITHOUT ESOPHAGITIS Current 01/22/2024 PROCEDURES Procedure Description Date Notes NO PROCEDURES PERFORMED ASSESSMENTS Assessment None PLAN OF TREATMENT Assessment Planned Activity LOINC Planned Garry e None CONSULTATION NOTE Note Author Date None HISTORY AND PHYSICAL NOTE Note Author Date None PROGRESS NOTE Note Author Date None DISCHARGE SUMMARY Note Author Date None CHIEF COMPLAINT AND REASON FOR VISIT FUNCTIONAL STATUS Functional or Cognitive Find ing None MENTAL STATUS Cognitive Finding None ENCOUNTERS Encounter Type Provider Diagnoses Start Date Location None SOCIAL HISTORY Social Status Observation Unknown if ever smoked Sex:Female CARE TEAM INFORMATION Forming Machine Tender Provider ID Role Location Phone JAY MILLAN [id number] PHYSICIAN [facility] A [address] [place] [id number] YAMINI LEWIS [phone] [facility] A [address] [place] [phone]
--- OUTSIDE RECORDS SUMMARY | 2025-04-18 20:22 | XMS_ITS | Data Portability ---
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 Patient recently started smoking again and is dealing with a lot of stressors at home based on her symptoms and on the history I am concerned she may have gastritis versus kidney stones and or both. As such I will send her to have a UA to assess for blood in the urine and I will send her prescription for Protonix, Cytotec, and Carafate. [email or web address] Not available 01/10/2023 13:07:36 Plan of Treatment Reminders Order Date Submit Date Provider Last Modified By Organization Details Last Modified Time Details Appointments None recorded. Lab urinalysis complete, reflex culture 2022 023 [email or web address] Not available 3 15:28:05 Referral None recorded. Procedures None recorded. Surgeries None recorded. Imaging None recorded. Medication Orders sucralfate 1 gram tablet 2022 023 [facility] [address] [facility], [place], [address], 3 13:10:08 pantoprazol e 40 mg tablet,rodrick briand release 2022 023 [facility] [address] [facility], [place], [address], 3 13:10:06 Cytotec 200 mcg tablet 2022 023 [facility] [address] [facility], [place], [address], 3 13:10:07 Patient TargetsNo targets recorded. Patient InstructionsNo instructions recorded. Reason for Referral None Reported. Results Created Date Observation Date Name Description Value Unit Range Abnormal Flag Note LastModifiedBy Organization Detail LastModifiedTime 08/20/20 22 08/23/2022 BACTE RIAL VAGIN OSIS, [place] atopobium vaginae modera te - 1 score Not Available [address], [address], 08/23/2022 04:08:05 08/20/20 22 08/23/2022 BACTE RIAL VAGIN OSIS, [place] bvab 2 modera te - 1 score Not Available [facility] [address] [place], [address], 08/23/2022 04:08:05 08/20/20 22 08/23/2022 BACTE RIAL VAGIN OSIS, [place] megasphaera 1 low - 0 score . Calcu late total score by paco daniel the 3 indiv idual bacte rial vagin osis (BV) marke r score s toget her. Total score is inter prete d as follo ws: Total score 0-1: Indic ates the absen ce of BV. Total score 2: Indet ermin ate for BV. Addit ional clini melisas data shoul d be evalu ated to estab michael a diagn osis. Total score 3-6: Indic ates the prese nce of BV. . This test was devel oped and its perfo rmanc e yovani cteri stics deter mined by [facility]. It has not been clear ed or appro vanessa by the Food and Drug Admin istra tion. Perfo rmed at: =G - [facility] [place] [address] , [place] [address] Lab Direc tor: Cherrie gerber MD, Phone : [phone] Not Available [facility] [address] [place], [address], 08/23/2022 04:08:05 08/20/20 22 08/20/2022 URINA LYSIS COMPL ETE/I RIS W/RFX color orange abnormal Not Available [facility] (Lab) [address] [place], [address], 08/20/2022 22:12:00 08/20/20 22 08/20/2022 URINA LYSIS COMPL ETE/I RIS W/RFX appear extra turbid abnormal Not Available [facility] (Lab) [address] [place], [address], 08/20/2022 22:12:00 08/20/20 22 08/20/2022 URINA LYSIS COMPL ETE/I RIS W/RFX specific gravity 1.025 1.001- 1.030 Not Available [facility] (Lab) [address] [place], [address], 08/20/2022 22:12:00 08/20/20 22 08/20/2022 URINA LYSIS COMPL ETE/I RIS W/RFX pH 5.5 pH_un its 5.0-9. 0 Not Available [facility] (Lab) [address] [place], [address], 08/20/2022 22:12:00 08/20/20 22 08/20/2022 URINA LYSIS COMPL ETE/I RIS W/RFX leukocytes negati ve amos/u L negati ve- Not Available [facility] (Lab) [address] [place], [address], 08/20/2022 22:12:00 08/20/20 22 08/20/2022 URINA LYSIS COMPL ETE/I RIS W/RFX nitrite negati ve negati ve- Not Available [facility] (Lab) [address] [place], [address], 08/20/2022 22:12:00 08/20/20 22 08/20/2022 URINA LYSIS COMPL ETE/I RIS W/RFX protein 30 mg/dL negati ve- abnormal Not Available [facility] (Lab) [address] [place], [address], 08/20/2022 22:12:00 08/20/20 22 08/20/2022 URINA LYSIS COMPL ETE/I RIS W/RFX glucose normal mg/dL normal - Not Available [facility] (Lab) [address] [place], [address], 08/20/2022 22:12:00 08/20/20 22 08/20/2022 URINA LYSIS COMPL ETE/I RIS W/RFX ketones negati ve mg/dL negati ve- Not Available [facility] (Lab) [address] [place], [address], 08/20/2022 22:12:00 08/20/20 22 08/20/2022 URINA LYSIS COMPL ETE/I RIS W/RFX urobilinogen 3 mg/dL normal - abnormal Not Available [facility] (Lab) [address] [place], [address], 08/20/2022 22:12:00 08/20/20 22 08/20/2022 URINA LYSIS COMPL ETE/I RIS W/RFX bilirubin negati ve mg/dL negati ve- Not Available [facility] (Lab) [address] [place], [address], 08/20/2022 22:12:00 08/20/20 22 08/20/2022 URINA LYSIS COMPL ETE/I RIS W/RFX blood negati ve mg/dL negati ve- Not Available [facility] (Lab) [address] [place], [address], 08/20/2022 22:12:00 08/20/20 22 08/20/2022 URINA LYSIS COMPL ETE/I RIS W/RFX white blood cells none /i??h pfi?? 0-8 Not Available [facility] (Lab) [address] [place], [address], 08/20/2022 22:12:00 08/20/20 22 08/20/2022 URINA LYSIS COMPL ETE/I RIS W/RFX red blood cells 21-40 /i??h pfi?? 0-4 abnormal Not Available [facility] (Lab) [address] [place], [address], 08/20/2022 22:12:00 08/20/20 22 08/20/2022 URINA LYSIS COMPL ETE/I RIS W/RFX bacteria none Not Available [facility] (Lab) [address] [place], [address], 08/20/2022 22:12:00 08/20/20 22 08/20/2022 URINA LYSIS COMPL ETE/I RIS W/RFX mucous many /i??l pfi?? abnormal Not Available [facility] (Lab) [address] [place], [address], 08/20/2022 22:12:00 08/20/20 22 08/20/2022 URINA LYSIS COMPL ETE/I RIS W/RFX squamous epithelial none /i??l pfi?? Not Available [facility] (Lab) [address] [place], [address], 08/20/2022 22:12:00 08/20/20 22 08/20/2022 URINA LYSIS COMPL ETE/I RIS W/RFX amorphous crystal occasi onal /i??h pfi?? abnormal Not Available [facility] (Lab) [address] [place], [address], 08/20/2022 22:12:00 12/10/19 23 12/13/2022 VITAM IN B1 (THIA MINE) , BLOOD vit. B1, whole blood 95.4 nmol/ L 66.5-2 00.0 Test( s) 55544 8-Vit . B1, Whole Blood was devel oped and its perfo rmanc e yovani cteri stics deter mined by [facility]. It has not been clear ed or appro vanessa by the Food and Drug Admin istra tion. Perfo rmed at: - [facility] [place] [address] [facility] , [place] [address] Lab Direc tor: Wendy fernandez MD, Phone : [phone] Not Available [facility] (Lab) [address] [place], [address], 12/13/2022 21:07:44 12/10/19 23 12/11/2022 HEMOG LOBIN A1C HA1C 5.0 % 4.0-6. 0 Diabe maria esther Scree shiela Crite cece: <5.7% Consi stent with absen ce of diabe maria esther 5.7-6 .4% Consi stent with incre ased risk for diabe maria esther (pred iabet es) >OR=6 .5% Consi stent with diabe maria esther REFER ENCE: Diabe maria esther Care 2016, 39(Scott ppl.1 ):s13 -s22 Not Available [facility] (Lab) [address] [place], [address], 12/11/2022 11:50:33 12/10/19 23 12/10/2022 KHALIF TIN ferritin 43 NG/mL 11.1-2 64 Not Available [facility] (Lab) [address] [place], [address], 12/10/2022 23:12:04 12/10/19 23 12/10/2022 TSH thyroid-stim ulating hormone 2.980 uIU/m L 0.465- 4.680 Not Available [facility] (Lab) [address] [place], [address], 12/10/2022 23:11:59 12/10/19 23 12/10/2022 VITAM IN B12 (BRANDY BRYAN ) vb12 537 pg/mL 239-93 1 Not Available [facility] (Lab) [address] [place], [address], 12/10/2022 23:10:42 12/10/19 23 12/10/2022 TEST NOT PERFO RMED test not performed see commen t UNABL E TO DO FOLAT E RBC TEST; TWO PURPL E TOP TUBES REQUI RED FOR TESTI NG Not Available [facility] (Lab) [address] [place], [address], 12/10/2022 23:08:46 12/10/19 23 12/10/2022 VITAM IN D 25-HY DROXY [id number] 32.1 NG/mL 30-100 Vitam in D Statu s: Defic ient: <20 ng/mL Insuf ficie nt: 20-29 ng/mL Suffi cient : 30-10 0 ng/mL Not Available [facility] (Lab) [address] [place], [address], 12/10/2022 23:03:18 12/10/19 23 12/10/2022 IRON/ TIBC PANEL total iron binding capacity 282 mcg/d L 265-47 5 Not Available [facility] (Lab) [address] [place], [address], 12/10/2022 22:24:12 12/10/19 23 12/10/2022 IRON/ TIBC PANEL % transferrin saturation 39 % 20-55 Not Available [facility] (Lab) [address] [place], [address], 12/10/2022 22:24:12 12/10/19 12/10/2022 IRON/ TIBC PANEL unsaturated iron bind capacity 171 mcg/d L 126-38 2 Not Available [facility] (Lab) [address] [place], [address], 12/10/2022 22:24:12 12/10/19 23 12/10/2022 IRON/ TIBC PANEL iron 111 mcg/d L 42-175 Not Available [facility] (Lab) [address] [place], [address], 12/10/2022 22:24:12 12/10/19 23 12/10/2022 COMPR EHENS CURLY METAB OLIC PANEL potassium 3.9 mmol/ L 3.5-5. 1 Not Available [facility] (Lab) [address] [place], [address], 12/10/2022 22:22:09 12/10/19 23 12/10/2022 COMPR EHENS CURLY METAB OLIC PANEL chloride 103 mmol/ L 98-107 Not Available [facility] (Lab) [address] [place], [address], 12/10/2022 22:22:09 12/10/19 23 12/10/2022 COMPR EHENS CURLY METAB OLIC PANEL carbon dioxide 31 mmol/ L 22-30 high Not Available [facility] (Lab) [address] [place], [address], 12/10/2022 22:22:09 12/10/19 23 12/10/2022 COMPR EHENS CURLY METAB OLIC PANEL anion gap 10.9 mmol/ L 14-22 low Not Available [facility] (Lab) [address] [place], [address], 12/10/2022 22:22:09 12/10/19 23 12/10/2022 COMPR EHENS CURLY METAB OLIC PANEL glucose 76 mg/dL 70-99 Not Available [facility] (Lab) [address] [place], [address], 12/10/2022 22:22:09 12/10/19 23 12/10/2022 COMPR EHENS CURLY METAB OLIC PANEL BUN 8 mg/dL 8-19 Not Available [facility] (Lab) [address], [place], [address], 12/10/2022 22:22:09 12/10/19 23 12/10/2022 COMPR EHENS CURLY METAB OLIC PANEL creatinine 0.50 mg/dL 0.66-1 .25 low Not Available [facility] (Lab) [address], [place], [address], 12/10/2022 22:22:09 12/10/19 23 12/10/2022 COMPR EHENS CURLY METAB OLIC PANEL GFR >60 Refer ence Range : [place] ge GFR Healt hy Adult : >60 mL/mi n/1.7 3 m2 Chron ic Kidne y Disea se: 15-60 mL/mi n/1.7 3 m2 Kidne y Failu re: <15/m L/min /1.73 m2 www.n iddk. nih.g ov The MDRD study equat ion has not been valid ated in child joana <18 years of age; pregn ant women ; the elder ly >85 years of age; or in some racia l or ethni c subgr oups, such as [facility] nics. Outsi de the valid ated mercedes eters , estim ated GFR is less accur ate, requi ring clini melissa judgm ent on a case- by-ca se basis . Clini melissa inter preta tion for other races and ages must be made by the clini geoff. The MDRD study equat ion has not been valid ated for the evalu ation of serum creat inine relat ed to nutri nico l statu s or medic ation usage . For perso ns <18 years of age, a pedia tric GFR calcu lator is avail able on the [facility] websi te: https ://eric w.nicolle andrade.o rg/pr ofess ional s/kdo qi/gf r_cal culat or Not Available [facility] (Lab) [address] [place], [address], 12/10/2022 22:22:12/10/19 23 12/10/2022 COMPR EHENS CURLY METAB OLIC PANEL alkaline phosphatase 93 U/L 38-126 Not Available [facility] (Lab) [address] [place], [address], 12/10/2022 22:22:12/10/19 23 12/10/2022 COMPR EHENS CURLY METAB OLIC PANEL alanine aminotransfe rase 17 U/L 0-35 Not Available [facility] (Lab) [address] [place], [address], 12/10/2022 22:22:09 12/10/19 23 12/10/2022 COMPR EHENS CURLY METAB OLIC PANEL aspartate aminotransfe rase 20 U/L 15-37 Not Available [facility] (Lab) [address] [place], [address], 12/10/2022 22:22:12/10/19 23 12/10/2022 COMPR EHENS CURLY METAB OLIC PANEL bilirubin, total 0.40 mg/dL 0.20-1 .30 Not Available [facility] (Lab) [address] [place], [address], 12/10/2022 22:22:12/10/19 23 12/10/2022 COMPR EHENS CURLY METAB OLIC PANEL calcium 9.0 mg/dL 8.4-10 .2 Not Available [facility] (Lab) [address] [place], [address], 12/10/2022 22:22:12/10/19 23 12/10/2022 COMPR EHENS CURLY METAB OLIC PANEL total protein 7.0 g/dL 6.3-8. 2 Not Available [facility] (Lab) [address] [place], [address], 12/10/2022 22:22:09 12/10/19 23 12/10/2022 COMPR EHENS CURLY METAB OLIC PANEL albumin 4.3 g/dL 3.4-5. 0 Not Available [facility] (Lab) [address] [place], [address], 12/10/2022 22:22:09 12/10/19 23 12/10/2022 COMPR EHENS CURLY METAB OLIC PANEL globulin 2.7 g/dL 2.6-4. 2 Not Available [facility] (Lab) [address] [place], [address], 12/10/2022 22:22:09 12/10/19 23 12/10/2022 COMPR EHENS CURLY METAB OLIC PANEL A/G ratio 1.6 ratio 1.0-2. 0 Not Available [facility] (Lab) [address] [place], [address], 12/10/2022 22:22:09 12/10/19 23 12/10/2022 COMPR EHENS CURLY METAB OLIC PANEL sodium 141 mmol/ L 137-14 5 Not Available [facility] (Lab) [address] [place], [address], 12/10/2022 22:22:09 12/10/19 23 12/10/2022 PHOSP HORUS phosphorus 4.1 mg/dL 2.5-4. 5 Not Available [facility] (Lab) [address] [place], [address], 12/10/2022 22:21:11 12/10/19 23 12/10/2022 MAGNE SIUM magnesium 2.1 mg/dL 1.6-2. 3 Not Available [facility] (Lab) [address] [place], [address], 12/10/2022 22:21:06 12/10/19 23 12/10/2022 CBC/C OMPLE TE BLD COUNT W/DIF F hematocrit 43.8 % 35.7-4 5.7 Not Available [facility] (Lab) [address] [place], [address], 12/10/2022 22:12:15 12/10/19 23 12/10/2022 CBC/C OMPLE TE BLD COUNT W/DIF F white blood cells 6.6 x10'3 /uL 4.2-10 .8 Not Available [facility] (Lab) [address] [place], [address], 12/10/2022 22:12:15 12/10/19 23 12/10/2022 CBC/C OMPLE TE BLD COUNT W/DIF F red blood cells 4.39 x10'6 /uL 3.80-5 .20 Not Available [facility] (Lab) [address] [place], [address], 12/10/2022 22:12:15 12/10/19 23 12/10/2022 CBC/C OMPLE TE BLD COUNT W/DIF F hemoglobin 14.0 g/dL 12.0-1 5.6 Not Available [facility] (Lab) [address] [place], [address], 12/10/2022 22:12:15 12/10/19 23 12/10/2022 CBC/C OMPLE TE BLD COUNT W/DIF F mean red cell volume 99.8 fL 82.0-9 9.0 high Not Available [facility] (Lab) [address] [place], [address], 12/10/2022 22:12:15 12/10/19 23 12/10/2022 CBC/C OMPLE TE BLD COUNT W/DIF F mean red cell hemoglobin 31.9 pg 27.0-3 3.0 Not Available [facility] (Lab) [address] [place], [address], 12/10/2022 22:12:15 12/10/19 23 12/10/2022 CBC/C OMPLE TE BLD COUNT W/DIF F mean RBC HGB concentratio n 32.0 g/dL 31.0-3 6.0 Not Available [facility] (Lab) [address] [place], [address], 12/10/2022 22:12:15 12/10/19 23 12/10/2022 CBC/C OMPLE TE BLD COUNT W/DIF F red cell distribution width 12.5 % 11.8-1 5.5 Not Available [facility] (Lab) [address] [place], [address], 12/10/2022 22:12:15 12/10/19 23 12/10/2022 CBC/C OMPLE TE BLD COUNT W/DIF F platelets 216 x10'3 /uL 150-40 0 Not Available [facility] (Lab) [address] [place], [address], 12/10/2022 22:12:15 12/10/19 23 12/10/2022 CBC/C OMPLE TE BLD COUNT W/DIF F mean platelet volume 11.9 fL 9.0-12 .4 Not Available [facility] (Lab) [address] [place], [address], 12/10/2022 22:12:15 12/10/19 23 12/10/2022 CBC/C OMPLE TE BLD COUNT W/DIF F neutrophils 56.1 % 39.0-7 2.0 Not Available [facility] (Lab) [address] [place], [address], 12/10/2022 22:12:15 12/10/19 23 12/10/2022 CBC/C OMPLE TE BLD COUNT W/DIF F lymphocytes 36.6 % 16.0-4 7.0 Not Available [facility] (Lab) [address] [place], [address], 12/10/2022 22:12:15 12/10/19 23 12/10/2022 CBC/C OMPLE TE BLD COUNT W/DIF F monocytes 5.6 % 5.0-12 .0 Not Available [facility] (Lab) [address] [place], [address], 12/10/2022 22:12:15 12/10/19 23 12/10/2022 CBC/C OMPLE TE BLD COUNT W/DIF F eosinophils 0.9 % 1.0-7. 0 low Not Available [facility] (Lab) [address] [place], [address], 12/10/2022 22:12:15 12/10/19 23 12/10/2022 CBC/C OMPLE TE BLD COUNT W/DIF F basophils 0.5 % 0.0-2. 0 Not Available [facility] (Lab) [address] [place], [address], 12/10/2022 22:12:15 12/10/19 23 12/10/2022 CBC/C OMPLE TE BLD COUNT W/DIF F immature granulocytes 0.3 % 0.00-0 .50 Not Available [facility] (Lab) [address] [place], [address], 12/10/2022 22:12:15 12/10/19 23 12/10/2022 CBC/C OMPLE TE BLD COUNT W/DIF F neutrophils, absolute count 3.71 x10'3 /uL 1.5-8. 0 Not Available [facility] (Lab) [address] [place], [address], 12/10/2022 22:12:15 12/10/19 23 12/10/2022 CBC/C OMPLE TE BLD COUNT W/DIF F lymphocytes, absolute count 2.42 x10'3 /uL 1.07-3 .43 Not Available [facility] (Lab) [address] [place], [address], 12/10/2022 22:12:15 12/10/19 23 12/10/2022 CBC/C OMPLE TE BLD COUNT W/DIF F monocytes, absolute count 0.37 x10'3 /uL 0.29-0 .99 Not Available [facility] (Lab) [address] [place], [address], 12/10/2022 22:12:15 12/10/19 23 12/10/2022 CBC/C OMPLE TE BLD COUNT W/DIF F eosinophils, absolute count 0.06 x10'3 /uL 0.02-0 .53 Not Available [facility] (Lab) [address] [place], [address], 12/10/2022 22:12:15 12/10/19 23 12/10/2022 CBC/C OMPLE TE BLD COUNT W/DIF F basophils, absolute count 0.03 x10'3 /uL 0.01-0 .08 Not Available [facility] (Lab) [address] [place], [address], 12/10/2022 22:12:15 12/10/19 23 12/10/2022 CBC/C OMPLE TE BLD COUNT W/DIF F immature granulocytes ,absolute 0.02 x10'3 /uL 0.00-0 .05 Not Available [facility] (Lab) [address] [place], [address], 12/10/2022 22:12:15 12/10/19 23 12/10/2022 CBC/C OMPLE TE BLD COUNT W/DIF F nucleated red blood cells 0.0 % -0 Not Available [facility] (Lab) [address] [place], [address], 12/10/2022 22:12:15 12/10/19 23 12/10/2022 CBC/C OMPLE TE BLD COUNT W/DIF F NRBC# 0.00 x10'3 /uL Not Available [facility] (Lab) [address] [place], [address], 12/10/2022 22:12:15 01/10/20 23 01/10/2023 URINA LYSIS W/ MICRO REFLE X C color YELLOW yellow /color les Not Available [facility] (Lab) [address], [place], [address], 01/10/2023 13:48:12 01/10/20 23 01/10/2023 URINA LYSIS W/ MICRO REFLE X C appearance CLEAR clear Not Available [facility] (Lab) [address], [place], [address], 01/10/2023 13:48:12 01/10/20 23 01/10/2023 URINA LYSIS W/ MICRO REFLE X C pH 6 4.8-8. [address] [facility] (Lab) [address], [place], [address], 01/10/2023 13:48:12 01/10/20 23 01/10/2023 URINA LYSIS W/ MICRO REFLE X C sp gravity urine 1.015 1.015- 1.[address] [facility] (Lab) [address], [place], [address], 01/10/2023 13:48:12 01/10/20 23 01/10/2023 URINA LYSIS W/ MICRO REFLE X C protein NEGATI VE negati ve Not Available [facility] (Lab) [address], [place], [address], 01/10/2023 13:48:12 01/10/20 23 01/10/2023 URINA LYSIS W/ MICRO REFLE X C glucose NEGATI VE negati ve Not Available [facility] (Lab) [address], [place], [address], 01/10/2023 13:48:12 01/10/20 23 01/10/2023 URINA LYSIS W/ MICRO REFLE X C ketone NEGATI VE negati ve Not Available [facility] (Lab) [address], [place], [address], 01/10/2023 13:48:12 01/10/20 23 01/10/2023 URINA LYSIS W/ MICRO REFLE X C bili NEGATI VE negati ve Not Available [facility] (Lab) [address], [place], [address], 01/10/2023 13:48:12 01/10/20 23 01/10/2023 URINA LYSIS W/ MICRO REFLE X C blood NEGATI VE negati ve Not Available [facility] (Lab) [address], [place], [address], 01/10/2023 13:48:12 01/10/20 23 01/10/2023 URINA LYSIS W/ MICRO REFLE X C nitrite NEGATI VE negati ve Not Available [facility] (Lab) [address], [place], [address], 01/10/2023 13:48:12 01/10/20 23 01/10/2023 URINA LYSIS W/ MICRO REFLE X C leukocyte esterase NEGATI VE negati ve Not Available [facility] (Lab) [address], [place], [address], 01/10/2023 13:48:12 01/10/20 23 01/10/2023 URINA LYSIS W/ MICRO REFLE X C urobili 0.2 eu normal /0.2-1 .[address] [facility] (Lab) [address], [place], [address], 01/10/2023 13:48:12 01/10/20 23 01/10/2023 URINA LYSIS W/ MICRO REFLE X C UA micro Y Not Available [facility] (Lab) [address], [place], [address], 01/10/2023 13:48:12 01/10/20 23 01/10/2023 URINA LYSIS W/ MICRO REFLE X C leuk 0-5 /hpf 0-[address] [facility] (Lab) [address], [place], [address], 01/10/2023 13:48:12 01/10/20 23 01/10/2023 URINA LYSIS W/ MICRO REFLE X C rbcua 0-3 /hpf 0-[address] [facility] (Lab) [address], [place], [address], 01/10/2023 13:48:12 01/10/20 23 01/10/2023 URINA LYSIS W/ MICRO REFLE X C epith >50 /lpf squam Not Available [facility] (Lab) [address], [place], [address], 01/10/2023 13:48:12 01/10/20 23 01/10/2023 URINA LYSIS W/ MICRO REFLE X C casts NEGATI VE /lpf negati ve Not Available [facility] (Lab) [address], [place], [address], 01/10/2023 13:48:12 01/10/20 23 01/10/2023 URINA LYSIS W/ MICRO REFLE X C bacteria 2+ neg-tr ольга Not Available [facility] (Lab) [address], [place], [address], 01/10/2023 13:48:12 01/10/20 23 01/10/2023 URINA LYSIS W/ MICRO REFLE X C crystls NEGATI VE /lpf negati ve Not Available [facility] (Lab) [address], [place], [address], 01/10/2023 13:48:12 01/10/20 23 01/10/2023 URINA LYSIS W/ MICRO REFLE X C mucus TRACE neg-tr ольга Not Available [facility] (Lab) [address], [place], [address], 01/10/2023 13:48:12 01/28/20 23 01/28/2023 URINA LYSIS COMPL ETE/I RIS W/RFX pH 7.0 pH_un its 5.0-9. 0 Not Available [facility] (Lab) [address] [place], [address], 01/28/2023 19:47:06 01/28/20 23 01/28/2023 URINA LYSIS COMPL ETE/I RIS W/RFX leukocytes negati ve amos/u L negati ve- Not Available [facility] (Lab) [address] [place], [address], 01/28/2023 19:47:06 01/28/20 23 01/28/2023 URINA LYSIS COMPL ETE/I RIS W/RFX nitrite negati ve negati ve- Not Available [facility] (Lab) [address] [place], [address], 01/28/2023 19:47:06 01/28/20 23 01/28/2023 URINA LYSIS COMPL ETE/I RIS W/RFX protein negati ve mg/dL negati ve- Not Available [facility] (Lab) [address] [place], [address], 01/28/2023 19:47:06 01/28/20 23 01/28/2023 URINA LYSIS COMPL ETE/I RIS W/RFX glucose normal mg/dL normal - Not Available [facility] (Lab) [address] [place], [address], 01/28/2023 19:47:06 01/28/20 23 01/28/2023 URINA LYSIS COMPL ETE/I RIS W/RFX ketones negati ve mg/dL negati ve- Not Available [facility] (Lab) [address] [place], [address], 01/28/2023 19:47:06 01/28/20 23 01/28/2023 URINA LYSIS COMPL ETE/I RIS W/RFX urobilinogen normal mg/dL normal - Not Available [facility] (Lab) [address] [place], [address], 01/28/2023 19:47:06 01/28/20 23 01/28/2023 URINA LYSIS COMPL ETE/I RIS W/RFX bilirubin negati ve mg/dL negati ve- Not Available [facility] (Lab) [address] [place], [address], 01/28/2023 19:47:06 01/28/20 23 01/28/2023 URINA LYSIS COMPL ETE/I RIS W/RFX blood negati ve mg/dL negati ve- Not Available [facility] (Lab) [address] [place], [address], 01/28/2023 19:47:06 01/28/20 23 01/28/2023 URINA LYSIS COMPL ETE/I RIS W/RFX white blood cells 0-8 /i??h pfi?? 0-8 Not Available [facility] (Lab) [address] [place], [address], 01/28/2023 19:47:06 01/28/20 23 01/28/2023 URINA LYSIS COMPL ETE/I RIS W/RFX red blood cells 0-4 /i??h pfi?? 0-4 Not Available [facility] (Lab) [address] [place], [address], 01/28/2023 19:47:06 01/28/20 23 01/28/2023 URINA LYSIS COMPL ETE/I RIS W/RFX bacteria occasi onal abnormal Not Available [facility] (Lab) [address] [facility] [place], [address], 01/28/2023 19:47:06 01/28/20 23 01/28/2023 URINA LYSIS COMPL ETE/I RIS W/RFX mucous few /i??l pfi?? abnormal Not Available [facility] (Lab) [address] [place], [address], 01/28/2023 19:47:06 01/28/20 23 01/28/2023 URINA LYSIS COMPL ETE/I RIS W/RFX squamous epithelial packed field /i??l pfi?? abnormal Not Available [facility] (Lab) [address] [place], [address], 01/28/2023 19:47:06 01/28/20 23 01/28/2023 URINA LYSIS COMPL ETE/I RIS W/RFX budding yeast occasi onal /i??h pfi?? abnormal Not Available [facility] (Lab) [address] [place], [address], 01/28/2023 19:47:06 01/28/20 23 01/28/2023 URINA LYSIS COMPL ETE/I RIS W/RFX specific gravity 1.010 1.001- 1.030 Not Available [facility] (Lab) [address] [place], [address], 01/28/2023 19:47:06 01/28/20 23 01/28/2023 URINA LYSIS COMPL ETE/I RIS W/RFX color yellow Not Available [facility] (Lab) [address] [place], [address], 01/28/2023 19:47:06 01/28/20 23 01/28/2023 URINA LYSIS COMPL ETE/I RIS W/RFX appear turbid abnormal Not Available [facility] (Lab) [address] [place], [address], 01/28/2023 19:47:06 10/01/20 22 10/01/2022 imagi ng/di agnos tic resul t No observ ation record ed. [id number] [facility] [address] [place], [address], 03/19/2023 19:24:34 Result Notes None recorded. Problems Name Problem SNOMED Code Status Onset Date Resolution Date Notes Provider Name and Address Organization Details Recorded Time Epigastric pain 90079904 Active 2022 Not Available [facility] 3 06:42:27 Gastritis 7476398 Active 2022 Not Available [facility] 3 06:42:27 Kidney stone 85690627 Active 2022 Not Available [facility] 3 06:42:27 Tobacco user 768255968 Active Not Available [facility] 3 06:42:27 Computed tomography result abnormal 290603446 Active Not Available [facility] 3 06:42:27 White blood cell abnormalit y 546538044 Active Not Available [facility] 3 06:42:27 Bipolar disorder 94893348 Active Not Available [facility] 3 06:42:27 Body mass index 30+ - obesity 361758324 Active 2019 Not Available [facility] 3 06:42:27 Liver function tests outside reference range 198667123 Active Not Available [facility] 3 06:42:27 Cobalamin deficiency 857757983 Active 2015 Not Available [facility] 3 06:42:27 Closed fracture dislocatio n of tarsometat arsal joint 687628600 Active 2018 Not Available [facility] 3 06:42:27 Abdominal pain 75857711 Active Not Available [facility] 3 06:42:27 Gastroesop hageal reflux disease 535247764 Active 2019 Not Available [facility] 3 06:42:27 Hypolipide miesha 243908385 Completed Not Available [facility] 3 14:13:08 Morbid obesity 984629893 Active 2019 Not Available [facility] 3 06:42:27 Headache 57437004 Active 2018 Not Available [facility] 3 06:42:27 Post-surgi melissa malabsorpt ion 719788999 Active 2020 Not Available [facility] 3 06:42:27 Edema 638703792 Active Not Available [facility] 3 06:42:27 Abdominal mass 145395749 Active Not Available [facility] 3 06:42:27 Low back pain 425920225 Active Not Available [facility] 3 06:42:27 Persistent hematuria 752689824 Active Not Available [facility] 3 06:42:27 Pain in toe 814229541 Active 2018 Not Available [facility] 3 06:42:27 Chronic sciatica 715061141 Active 2019 Not Available [facility] 3 06:42:27 Osteopenia 842552347 Active 2019 Dexa 02/18 Not Available [facility] 3 06:42:27 Blood in urine 20949093 Active Not Available [facility] 3 06:42:27 Vitamin D deficiency 40878954 Active 2015 Not Available [facility] 3 06:42:27 Hypothyroi dism 01091838 Active Not Available [facility] 3 06:42:27 Obesity 801910622 Active Not Available [facility] 3 06:42:27 Anxiety 84738439 Active Not Available [facility] 3 06:42:27 Sprain of foot 28958954 Active 2019 Not Available [facility] 3 06:42:27 Dysuria 90626082 Active Not Available [facility] 3 06:42:27 Upper respirator y infection 24099177 Active Not Available [facility] 3 06:42:27 Hyperlipid emia 05324529 Active Not Available [facility] 3 06:42:27 Carpal tunnel syndrome 59080399 Active Not Available [facility] 3 06:42:27 History of bariatric surgical procedure 792493600 Active 2020 Not Available [facility] 3 06:42:27 Diarrhea 32692778 Active Not Available [facility] 3 06:42:27 Increased liver function 74267785 Active Not Available [facility] 3 06:42:27 Disorder of calcium metabolism 21092830 Active Not Available [facility] 3 06:42:27 Candidal vulvovagin itis 76317772 Active Not Available [facility] 3 06:42:27 Brachial neuritis 06390425 Active Not Available [facility] 3 06:42:27 Pelvic mass 44812905 Active Not Available [facility] 3 06:42:27 Urgent desire to urinate 51766135 Active Not Available [facility] 3 06:42:27 Fatigue 93939272 Active Not Available [facility] 3 06:42:27 Tobacco dependence syndrome 07251355 Active Not Available [facility] 3 06:42:27 Notes:back/neck problems, ey e problems, urinary/bladder/kidney problems Problem Notes None recorded. Procedures Surgical History Date Name Laterality Status Provider Name and Address Organization Details Recorded Time 01/27/20 21 laparoscopic sleeve gastrectomy completed Not Available [facility] 12/08/2022 14:08:39 Imaging Results Imaging Date Name Status LastModified by Organiz ation Details LastModified Time 10/01/2022 imaging/ju gnostic result completed [id number] [address] [facility] Add On Lab Orders [address] [place], [address], 03/19/2023 19:24:34 Procedure Notes None recorded. Medical Equipment None Reported. Allergies Allergen ID Allergen Name Allergen Category Reaction Reaction Severity Criticality Documentation Date Start Date Code Code System Note Provider Name and Address Organization Details Recorded Time 08171 acetamino phen / oxycodone medicatio n Not available Not available Not available 12/08/2022 49740 3 RxNorm Not Available [facility] 3 14:15:17 44951 nitrofura ntoin medicatio n Not available Not available Not available 12/08/2022 7454 RxNorm dizzi ness Not Available [facility] 3 14:15:17 19597 latex environme nt,medica tion Not available Not available Not available 12/08/2022 10241 91 RxNorm only use paper tape Not Available [facility] 3 14:15:17 13243 adhesive tape environme nt,medica tion Not available Not available Not available 12/08/2022 59997 UNK Not Available [facility] 3 14:15:17 Medications Name Sig Start Date Stop Date Status Note LastModified by Organization Details LastModified Time fluoxetine 40 mg capsule TAKE 1 CAPSULE BY MOUTH EVERY DAY 03/29 completed Not Available Not Available Not Available cyclobenzap rine 10 mg tablet active Not Available Not Available Not Available furosemide 40 mg tablet TK 1 T PO QD PRN 12/05 completed Not Available Not Available Not Available latanoprost 0.005 % eye drops INSTILL 1 DROP INTO BOTH EYES AT BEDTIME active Not Available Not Available No t Available buspirone 5 mg tablet 04/10 completed Not Available Not Available Not Available fentanyl 50 mcg/hr transdermal patch 12/29 completed Not Available Not Available Not Available nystatin 100,000 unit/mL oral suspension Take 10 mL 4 times a day by oral route for 7 days. 09/06 completed Not Available Not Available Not Available tizanidine 2 mg tablet 10/16 completed Not Available Not Available Not Available loperamide 2 mg capsule 1 po q4 hours prn diarrhea active Not Available Not Available No t Available trazodone 50 mg tablet active Not Available Not Available Not Available alprazolam 1 mg tablet TAKE ONE TABLET BY MOUTH TWICE DAILY. active Not Available Not Available No t Available Cytotec 200 mcg tablet Take 1 tablet 3 times a day by oral route for 20 days. 2022 active Not Available Not Available Not Avai lable tizanidine 4 mg tablet TAKE 1 TABLET BY MOUTH THREE TIMES DAILY NEEDED FOR MUSCLE SPASMS active Not Available Not Available No t Available fluconazole 150 mg tablet 1 po x 1 09/06 completed Not Available Not Available Not Available benzonatate 200 mg capsule TK 1 C PO TID PRN 01/02 completed Not Available Not Available Not Available ondansetron HCl 8 mg tablet TAKE 1 TABLET EVERY 8 HOURS NEEDED 01/02 completed Not Available Not Available Not Available meloxicam 15 mg tablet TAKE ONE TABLET DAILY 01/22 completed Not Available Not Available Not Available sucralfate 1 gram tablet Take 1 tablet 4 times a day by oral route for 20 days. 2022 active Not Available Not Available Not Avai lable ondansetron HCl 4 mg tablet TAKE 1 TABLET EVERY SIX HOURS NEEDED 09/01 completed Not Available Not Available Not Available hydromorpho ne 8 mg tablet 12/29 completed Not Available Not Available Not Available prednisone 20 mg tablet TK 2 TS PO QD FOR 5 DAYS 01/02 completed Not Available Not Available Not Available phentermine 15 mg capsule Take 1 capsule(s ) every day by oral route. active Not Available Not Available No t Available hydroxyzine pamoate 50 mg capsule active Not Available Not Available N ot Available clotrimazol e 1 % vaginal cream Insert 1 applicato rful every day by vaginal route at bedtime. 06/08 completed Not Available Not Available Not Available metronidazo le 500 mg tablet Take 1 tablet twice a day by oral route for 7 days. 09/06 completed Not Available Not Available Not Available lidocaine HCl 2 % mucosal jelly 04/10 completed Not Available Not Available Not Available ciprofloxac in 250 mg tablet active Not Available Not Available Not Available sulfamethox azole 800 mg-trimetho prim 160 mg tablet Take 1 tablet every 12 hours by oral route for 7 days. 09/06 completed Not Available Not Available Not Available hydrocodone 10 mg-acetamin ophen 325 mg tablet active Not Available Not Available No t Available triamcinolo ne acetonide 0.1 % topical cream APPLY A THIN LAYER TO THE AFFECTED AREA(S) BY TOPICAL ROUTE 2 TIMES PER DAY x 7 days prn active Not Available Not Available No t Available phentermine 30 mg capsule Take 1 capsule every day by oral route. 04/10 completed Not Available Not Available Not Available simvastatin 40 mg tablet TAKE 1 TABLET BY MOUTH EVERY DAY 02/01 completed Not Available Not Available Not Available lidocaine-p rilocaine 2.5 %-2.5 % topical cream 04/10 completed Not Available Not Available Not Available levothyroxi ne 100 mcg tablet po Q AM 11/28 completed Not Available Not Available Not Available alprazolam 0.5 mg tablet TAKE 1 TABLET TWICE DAILY NEEDED 06/25 completed Not Available Not Available Not Available amoxicillin 875 mg tablet TAKE 1 TABLET EVERY 12 HOURS FOR 7 DAYS. active Not Available Not Available No t Available alprazolam 0.25 mg tablet TAKE 1 TABLET TWICE A DAY NEEDED 07/31 completed Not Available Not Available Not Available potassium chloride ER 20 mEq tablet,exte nded release(par t/cryst) Take 1 tablet(s) every day by oral route. 12/29 completed Not Available Not Available Not Available famotidine 20 mg tablet TAKE ONE TABLET DAILY active Not Available Not Available No t Available methocarbam ol 750 mg tablet 04/10 completed Not Available Not Available Not Available estradiol 1 mg tablet TAKE 1 TABLET BY MOUTH EVERY DAY active Not Available Not Available No t Available dicyclomine 20 mg tablet 1 po q6 hours prn abd pain active Not Available Not Available No t Available benzonatate 100 mg capsule TK 2 CS PO TID PRF COUGH active Not Available Not Available No t Available triamcinolo ne acetonide 40 mg/mL suspension for injection 1 ml IM x 1 09/01 completed Not Available Not Available Not Available levothyroxi ne 50 mcg tablet Take 1 tablet every day by oral route. active Not Available Not Available No t Available pantoprazol e 40 mg tablet,rodrick yed release TAKE 1 TABLET BY MOUTH EVERY DAY 2023 active Not Available Not Available Not Avai lable simvastatin 20 mg tablet TAKE ONE TABLET DAILY AT BEDTIME active Not Available Not Available No t Available cyanocobala min (vit B-12) 1,000 mcg/mL injection solution INJECT 1 ML sc q month active Not Available Not Available No t Available levothyroxi ne 125 mcg tablet TAKE ONE TABLET DAILY 07/26 completed Not Available Not Available Not Available Cipro 500 mg tablet Take 1 tablet every 12 hours by oral route for 5 days. 03/20 completed Not Available Not Available Not Available prednisone 50 mg tablet 12/29 completed Not Available Not Available Not Available levothyroxi ne 150 mcg tablet TAKE 1 TABLET BY MOUTH EVERY DAY active Not Available Not Available No t Available dorzolamide 22.3 mg-timolol 6.8 mg/mL eye drops 09/01 completed Not Available Not Available Not Available furosemide 20 mg tablet 1 po qday prn edema active Not Available Not Available No t Available estradiol 0.5 mg tablet Take 1 tablet every day by oral route. active Not Available Not Available No t Available ergocalcife rol (vitamin D2) 1,250 mcg (50,000 unit) capsule TK 1 C PO WEEKLY active Not Available Not Available No t Available BD Tuberculin Syringe 1 mL 25 gauge x 5/8 USE TO INJECT CYANOCOBA BRYAN DIRECTED 01/02 completed Not Available Not Available Not Available fentanyl 25 mcg/hr transdermal patch 12/29 completed Not Available Not Available Not Available polyethylen e glycol 3350 17 gram/dose oral powder MIX ONE CAPFUL IN 8 OUNCES OF WATER OR JUICE AND DRINK ONCE DAILY 01/02 completed Not Available Not Available Not Available levofloxaci n 750 mg tablet 12/29 completed Not Available Not Available Not Available methylpredn isolone 4 mg tablets in a dose pack active Not Available Not Available Not Available timolol maleate 0.5 % eye drops 09/01 completed Not Available Not Available Not Available hydromorpho ne 4 mg tablet 1 TABLET EVERY 4-6 HR NEEDED PAIN NO MORE THAN 5 TABS DAILY active Not Available Not Available No t Available cefdinir 300 mg capsule TK 1 C PO BID active Not Available Not Available No t Available fluoxetine 20 mg capsule Take 1 capsule every day by oral route. 2019 active Not Available Not Available Not Avai lable fluticasone propionate 50 mcg/actuati on nasal spray,suspe nsion 2 sprays IEN daily active Not Available Not Available No t Available doxycycline hyclate 100 mg tablet Take 1 tablet twice a day by oral route for 7 days. 01/02 completed Not Available Not Available Not Available phentermine 37.5 mg capsule Take 1 capsule every day by oral route. 04/10 completed Not Available Not Available Not Available amoxicillin 875 mg-potassiu m clavulanate 125 mg tablet Take 1 tablet every 12 hours by oral route for 10 days. active Not Available Not Available No t Available Ventolin HFA 90 mcg/actuati on aerosol inhaler INHALE 2 PUFFS BY MOUTH EVERY 4 HOURS NEEDED FOR SHORTNESS OF BREATH active Not Available Not Available No t Available tobramycin 0.3 %-dexametha sone 0.1 % eye drops,suspe nsion 06/20 completed Not Available Not Available Not Available enoxaparin 40 mg/0.4 mL subcutaneou s syringe INJECT 0.4ML EVERY DAY BY SUBCUTANE OUS SYRINGE active Not Available Not Available No t Available Premarin 0.625 mg tablet Take 1 tablet every day by oral route. active Not Available Not Available No t Available rosuvastati n 20 mg tablet active Not Available Not Available Not Available nitrofurant oin monohydrate /macrocryst als 100 mg capsule Take 1 capsule every 12 hours by oral route for 7 days. 08/20 completed Not Available Not Available Not Available Cymbalta 60 mg capsule,del ayed release Take 1 capsule twice a day by oral route. 2012 active Not Available Not Available Not Avai lable fentanyl 12 mcg/hr transdermal patch 12/29 completed Not Available Not Available Not Available fenofibrate 160 mg tablet Take 1 tablet every day by oral route. active Not Available Not Available No t Available pregabalin 150 mg capsule TAKE 1 CAPSULE BY MOUTH THREE TIMES DAILY active Not Available Not Available No t Available Lyrica 75 mg capsule active Not Available Not Available N ot Available Lyrica 100 mg capsule active Not Available Not Available N ot Available Vicodin 2012 active 5 po q prn Not Available Not Available Not Available Ranexa 500 mg tablet,exte nded release Take 1 tablet every day by oral route. 04/10 completed Not Available Not Available Not Available Chantix 0.5 mg tablet active Not Available Not Available No t Available quetiapine 50 mg tablet active Not Available Not Available Not Available diclofenac 1 % topical gel APPLY 4 GRAMS TO THE AFFECTED AREA FOUR TIMES DAILY 01/02 completed Not Available Not Available Not Available levothyroxi ne 100 mcg capsule po Q daily active Not Available Not Available No t Available Vitamin D3 125 mcg (5,000 unit) tablet 2012 active Not Available Not Available Not Avai lable fluoxetine 60 mg tablet Take 1 tablet every day by oral route. active Not Available Not Available No t Available Chantix Continuing Month Box 1 mg tablet Take 1 tablet twice a day by oral route. 01/27 completed Not Available Not Available Not Available Chantix Starting Month Box 0.5 mg (11)-1 mg (42) tablets in dose pack take as directed active Not Available Not Available No t Available Myrbetriq 50 mg tablet,exte nded release Take 1 tablet every day by oral route for 30 days. 02/14 completed Not Available Not Available Not Available polyethylen e glycol (bulk) 09/01 completed Not Available Not Available Not Available Spiriva Respimat 2.5 mcg/actuati on solution for inhalation Inhale 2 puffs every day by inhalatio n route. 12/29 completed Not Available Not Available Not Available fentanyl 37.5 mcg/hour transdermal patch 12/29 completed Not Available Not Available Not Available Narcan 4 mg/actuatio n nasal spray CALL 911. SPR CONTENTS OF ONE SPRAYER (0.1ML) INTO ONE NOSTRIL. REPEAT IN 2-3 MIN IF SYMPTOMS OF OPIOID EMERGENCY PERSIST, ALTERNATE NOSTRIL active Not Available Not Available No t Available Vitals Date Recorded Body height Body mass index (BMI) Body weight Body temperature Heart rate Oxygen saturation Oxygen saturation in Arterial blood by Pulse oximetry Systolic blood pressure Diastolic blood pressure Provider Name and Address Organization Details Last Updated DateTime 3 149.86 cm 27.1 kg/m2 50761.3 8 g 98 [degF] 88 /min 96 % 96 % 106 mm[Hg] 62 mm[Hg] [facility] 3 12:39:53 Date Recorded Body mass index (BMI) Body height Oxygen saturation Oxygen saturation in Arterial blood by Pulse oximetry Heart rate Body temperature Body weight Systolic blood pressure Diastolic blood pressure Provider Name and Address Organization Details Last Updated DateTime 2 27.5 kg/m2 149.86 cm 96 % 96 % 57 /min 97.6 [degF] 24568.5 6 g 100 mm[Hg] 68 mm[Hg] Not Available [facility] 3 14:12:30 Date Recorded Body mass index (BMI) Body height Oxygen saturation Oxygen saturation in Arterial blood by Pulse oximetry Heart rate Body temperature Body weight Systolic blood pressure Diastolic blood pressure Provider Name and Address Organization Details Last Updated DateTime 2 27.5 kg/m2 149.86 cm 97 % 97 % 77 /min 97.9 [degF] 24466.5 6 g 92 mm[Hg] 62 mm[Hg] Not Available [facility] 14:12:30 Social History Question Answer Notes LastModified by Organizat ion Details LastModified Time Tobacco Smoking Status Current Every Day Smoker Not Available [facility] 12/08/2022 14:08:32 What Is Your Level Of Caffeine Consumption? None [id number] Information not available 12/08/2022 In The 14 Days Before Symptom Onset, Have You Had Close Contact With A Laboratory-confirm ed COVID-19 While That Case Was Ill? No [id number] Information not available 12/08/2022 In The 14 Days Before Symptom Onset, Have You Had Close Contact With A Person Who Is Under Investigation For COVID-19 While That Person Was Ill? No [id number] Information not available 12/08/2022 What Type Of Diet Are You Following? REGULAR [id number] Information not available 12/08/2022 Are There Any Guns Present In Your Home? No [id number] Information not available 12/08/2022 What Was The Date Of Your Most Recent Tobacco Screening? 01/10/2023 [email or web address] Information not available 01/10/2023 What Is Your Current Pack Years? [id number] ears [id number] Information not available 12/08/2022 What Is Your Relationship Status? [id number] Information not available 12/08/2022 Do You Use Your Seat Belt Or Car Seat Routinely? Yes [id number] Information not available 12/08/2022 At What Age Did You Start Smoking Tobacco? 12 [id number] Information not available 12/08/2022 How Much Tobacco Do You Smoke? 0.5 PPD [id number] Information not available 12/08/2022 Has Tobacco Cessation Counseling Been Provided? No [id number] Information not available 12/08/2022 Have You Recently Traveled Abroad? No [id number] Information not available 12/08/2022 Do You Have Any Dietary Restrictions? No [id number] Information not available 12/08/2022 Sex: Unknown Functional Status Question Answer Note LastModified by Organizat ion Details LastModified Time Do you use any illicit or recreational drugs? No [id number] Information not available 12/08/2022 Do you or have you ever used any other forms of tobacco or nicotine? No [id number] Information not available 12/08/2022 What is your level of alcohol consumption? None [id number] Information not available 12/08/2022 Are you currently employed? No [id number] Information not available 12/08/2022 What is your exercise level? None [id number] Information not available 12/08/2022 Mental Status Question Answer Note LastModified by Organizat ion Details LastModified Time Do you feel stressed (tense, restless, nervous, or anxious, or unable to sleep at night)? [id number] Information not available 12/08/2022 Family History Nothing Reported Notes:cancer - mother Medical History Condition Response BLINDNESS N RHEUMATIC FEVER N KIDNEY STONES N BLADDER PROBLEMS N MRSA N OTHER # 1 N POLIO N LUNG DISEASE/DISORDER N COPD N RADIATION / CHEMOTHERAPY N Other # 2 N BLOOD DISEASES N SURGERY N EAR OR HEARING PROBLEMS N MUMPS N FEMALE PROBLEMS / INFECTIONS N DEPRESSION (INCLUDING POST ) N BOWEL PROBLEMS N STROKE/TIA N THYROID DISEASE N ULCERS N BENIGN PROSTATIC HYPERPLASIA N MEASLES N CERVICALGIA N TB SKIN TEST N MYOCARDIAL INFARCTION N OBESITY N PARAPELGIA N GERD/NAUSEA N ANEURYSM N URINARY/BLADDER/KIDNEY PROBLEMS N CORONARY ARTERY [...] N INSOMNIA N HIGH CHOLESTEROL / HYPERLIPIDEMIA N HYPERTHYROIDISM N EYE PROBLEMS N EATING DISORDER N NEUROLOGICAL PROBLEMS N EDEMA N CHRONIC PAIN SYNDROME N HYPOTHYROIDISM N CONSTIPATION N CAROTID BLOCKAGE N BACK / NECK PROBLEMS N HAVE YOU BEEN HOSPITALIZED OR SEEN IN [facility] IN THE PAST YEAR ? N ATHEROSCLEROSIS N BREAST PROBLEMS N DIALYSIS N ECZEMA N FIBROMYALGIA N OSTEOPOROSIS N ARTHRITIS N NO SIGNIFICANT PAST MEDICAL HISTORY N APPENDICITIS N DIABETES, TYPE N BAD TEETH N HEARTBURN / REFLUX N ADD/ADHD N AUTISM SPECTRUM DISORDER (ASD) N HEPATITIS / LIVER DISEASE N PULMONARY DISEASE N GOUT N SLEEP DISORDER N ALZHEIMER'S DISEASE N PAIN N HERPES N DEMENTIA N SEIZURES/EPILEPSY N HEADACHES/MIGRAINES N VASCULAR DISEASE N PACEMAKER N DIZZINESS N KIDNEY DISEASE N HEART DISEASE/HEART PROBLEMS N SCARLET FEVER N MULTIPLE SCLEROSIS N MENTAL DISORDER/ILLNESS N DEVELOPMENTAL OR BEHAVIORAL DISORDERS N CARDIAC ARRHYTHMIA N CANCER: SPECIFY N PNEUMONIA N Gall Stones N ATRIAL FIBRILLATION N PULMONARY EMBOLISM N AUTOIMMUNE DISEASE N ABDOMINAL PAIN N Gynecological HistoryNo gynecological history recorded. Obstetrics History GPAL:G 0 P 0 0 0 0 Immunizations Vaccine Type Date Status Note Provider Nam e and Address Organization Details Recorded Time Tdap 6 completed Not Available [facility] 01/14/2023 06:42:28 Influenza, split virus, quadrivalent, PF 1 completed Not Available [facility] 01/14/2023 06:42:28 Influenza, split virus, quadrivalent, PF 8 completed Not Available [facility] 01/14/2023 06:42:28 Influenza, split virus, quadrivalent, PF 2 completed Not Available [facility] 01/14/2023 06:42:28 Influenza, split virus, quadrivalent, PF 7 completed Not Available [facility] 01/14/2023 06:42:28 Influenza, split virus, quadrivalent, PF 4 completed Not Available [facility] 01/14/2023 06:42:28 Influenza, split virus, quadrivalent, PF 0 completed Not Available [facility] 01/14/2023 06:42:28 Influenza, split virus, quadrivalent, preservative 6 completed Not Available [facility] 01/14/2023 06:42:28 Past Encounters Encounter ID Performer Location Encounter Start Date Encounter Closed Date Diagnosis/Indication Diagnosis SNOMED-CT Code Diagnosis ICD10 Code Diagnosis Note [id number] _ATHN_MIGR ATION_5 _ATHENA_M IGRATION_ DEFAULT_1 _5 , 02/01/2021 00:00:00 02/16/2021 13:55:56 [id number] Dk Griffiths MD DISP_CR [facility] [address] [place] [address] 02/15/2021 00:00:00 02/15/2021 13:02:48 [id number] _ATHN_MIGR ATION_5 _ATHENA_M IGRATION_ DEFAULT_1 _5 , 03/02/2021 00:00:00 03/22/2021 11:51:35 [id number] Dk Griffiths MD DISP_CR [address] [place] [address] 05/25/2021 00:00:00 05/25/2021 13:23:13 [id number] _ATHN_MIGR ATION_5 _ATHENA_M IGRATION_ DEFAULT_1 _5 , 08/31/2021 00:00:00 08/31/2021 11:12:42 [id number] Dk Griffiths MD DISP_MARCOS [address] [place] [address] 09/05/2021 00:00:00 09/05/2021 14:46:03 [id number] Dk Griffiths MD DISP_CR [facility] [address] [place] [address] 09/27/2021 00:00:00 09/27/2021 12:07:45 [id number] _ATHN_MIGR ATION_5 _ATHENA_M IGRATION_ DEFAULT_1 _5 , 12/05/2021 00:00:00 12/05/2021 14:15:49 [id number] Dk Griffiths MD DISP_MARCOS [address] [place] [address] 01/02/2022 00:00:00 01/02/2022 14:13:26 [id number] _ATHN_MIGR ATION_5 _ATHENA_M IGRATION_ DEFAULT_1 _5 , 02/28/2022 00:00:00 02/28/2022 11:24:14 [id number] _ATHN_MIGR ATION_5 _ATHENA_M IGRATION_ DEFAULT_1 _5 , 03/29/2022 00:00:00 03/30/2022 08:25:47 [id number] _ATHN_MIGR ATION_5 _ATHENA_M IGRATION_ DEFAULT_1 _5 , 06/25/2022 00:00:00 06/25/2022 08:39:53 [id number] _ATHN_MIGR ATION_5 _ATHENA_M IGRATION_ DEFAULT_1 _5 , 07/02/2022 00:00:00 07/30/2022 17:49:37 [id number] _ATHN_MIGR ATION_5 _ATHENA_M IGRATION_ DEFAULT_1 _5 , 08/20/2022 00:00:00 08/29/2022 19:01:43 [id number] _ATHN_MIGR ATION_5 _ATHENA_M IGRATION_ DEFAULT_1 _5 , 09/06/2022 00:00:00 09/06/2022 12:50:46 [id number] Dk Griffiths MD DISP_CR [facility] [address] [place] [address] 01/10/2023 12:35:16 01/10/2023 12:59:48 Epigastric pain 34235939 R10.13 Gastritis [id number] K29.70 Kidney stone [id number] N2 0.0 _ATHN_MIGR ATION_5 _ATHENA_M IGRATION_ DEFAULT_1 _5 , 12/10/2022 00:00:00 12/10/2022 14:52:04 _ATHN_MIGR ATION_5 _ATHENA_M IGRATION_ DEFAULT_1 _5 , 01/28/2023 00:00:00 01/28/2023 12:34:13 Health Concerns Section Related Observation LastModified by Organization Detai ls LastModified Time None Recorded Concern Status LastModified by Organization Details LastModified Time None Recorded Advance Directives Directive None Recorded Payers Insurance Date Sequence Insurance Name Policy Number Policy Smith Covered Member ID Smith Member ID Guarantor Name 08/15/2023 2 UNSPECIFIED REMIT PAYOR Yamilka Leslie 10/11/2023 2 [place] [facility] Yamilka eLslie [id number] Yamilka Loera Leslie 10/01/2023 1 [place] Yamilka Loera Leslie [id number] Yamilka Leslie 10/01/2023 2 [facility] [facility] (MEDICAID REPLACEMENT - HMO) [id number] Yamilka Loera Anuj [id number] Yamilka L Anuj Notes Date Note Type Note Provider Name and Address Organization Details Recorded Time 01/10/2023 text/html 52-year-old fema le status post robot assisted laparoscopic Brandi-en-Y gastric bypass comes in here today complaining of some epigastric pain and some right sided discomfort. Patient has started smoking again because she feels stressed with significant amount of family stressors. Otherwise she has been doing well except for some occasional vomiting when she eats something that does not agree with her. Dk palomo, Psychiatric 01/10/2023 13:10:48 OBGyn Episode No OBEpisode recorded.
[2025-04-18 20:25] LABS: INR 0.9; Prothrombin Time 12.6 Seconds (11.1-14.7)
[2025-04-18 20:26] LABS: Partial Thromboplastin Time 28.8 Seconds (22.3-36.8)
[2025-04-18 20:28] LABS: Ethanol < 10 mg/dL (<10); Lactic Acid Reflex 0.9 mmol/L (0.7-2.0)
[2025-04-18] MEDS: LORazepam INJ (*CRX) 2 MG/ML VIAL IV PUSH (20:36)
[2025-04-18 20:41] LABS: Alanine Aminotransferase 14 U/L (6-35); Albumin Level 4.5 g/dL (3.5-5.1); Alkaline Phosphatase 118 U/L (38-126); Anion Gap 6 mmol/L (4-12); Aspartate Amino Transferase 26 U/L (14-36); Bilirubin,Total 0.3 mg/dL (0.2-1.3); Blood Urea Nitrogen 9 mg/dL (7-17); Calcium 9.1 mg/dL (8.4-10.2); Carbon Dioxide 29 mmol/L (22-30); Chloride 105 mmol/L (98-107); Creatine Kinase 65 U/L (30-135); Estimated CRCL calculation 72 ml/min; Estimated Glomerular Filt Rate > 60; Glucose 85 mg/dL (65-110); Potassium 3.9 mmol/L (3.4-5.0); Sodium 140 mmol/L (137-145)
[2025-04-18 20:49] LABS: Troponin I < 0.012 ng/mL (0.000-0.034)
[2025-04-18 20:58] LABS: Add Urine Microscopic? NO; Appearance Urine Clear (Clear); Bilirubin Urine Negative (Negative); Blood Urine Negative (Negative); Color Urine Yellow (Yellow); Glucose Urine UA Negative (Negative); Ketones Urine Negative (Negative); Leukocyte Esterase Ur Negative LEU/UL (Negative); Nitrate Urine Negative (Negative); Protein Urine Negative (Negative); Specific Grav Ur 1.007 (1.001-1.035); pH Urine 5.5 (5.0-9.0)
[2025-04-18 21:15] LABS: Amphetamine Screen Urine Negative (Negative); Barbiturate Screen Urine Negative (Negative); Benzodiazepines Screen Urine Negative (Negative); Cannabinoid Screen Urine Negative (Negative); Cocaine Screen Urine Negative (Negative); Methadone Screen Urine Negative (Negative); Opiate Screen Urine Positive (Negative); Phencyclidine Screen Urine Negative (Negative)
--- NOTE | 2025-04-18 22:07 | PM.IMHP ---
H&P: HPI History of Present Illness Date/Time: 04/18/25 22:07 Chief Complaint: Seizures Narrative: 54-year-old female with a past medical history presented to the ED due to an injury related to seizure-like activity. The patient's daughter was at the bedside, who provided the history. She reports that although she was not present during the incident, the patient hit her head with the trunk of the car yesterday and knocked her down. She has been complaining of dizziness, which is more aggravated today. The patient is not on any anticoagulation. The patient is not on antiepileptics and does not follow up with any neurologist. The symptoms of the seizure have been ongoing for almost one and a half years. Pertinent ED labs: WBC 7.8, hemoglobin 14.2, platelet 184, sodium 140, potassium 3.9, creatinine 0.71, glucose [address]: No acute intracranial hemorrhage or suspicious mass effect. Cervical spine CT: Straightening and slight reversal of the normal curvature of the cervical spine, likely muscular in origin. No acute fracture. Chest x-ray: No large infiltrate or effusion. No pneumothorax. UDS positive for opiates The patient is admitted to the setting of his seizure-like activity. Neurology will be consulted tomorrow a.m.. Upon evaluation, no evidence of any neurological deficit. The patient reports that a loop monitor was managed at [facility]. Of note, the patient is a chronic smoker and uses a 2 L nasal cannula. The patient received Ativan at 20:36 in the ED. The patient is somnolent. The patient also has chronic back pain radiating to the left extremity. Review of Systems Review of Systems: All systems reviewed & are unremarkable except as noted in HPI and below PMFSH Social History Social History Smoking packs per day: 1 Smoking cigarettes per day: 20.0 Smoking status: Current every day smoker Tobacco type: cigarettes Alcohol intake: never Substance use: never Do You Feel Safe in your Home?: Yes Lack of Transportation: No Lack of Food: Never True Current Housing: I Have Housing Concerned About Future Housing: No Difficulty Paying Gas/Electric Bills: No Difficulty Paying for Meds: No Currently Unemployed: No Education: Bachelor's Degree Difficulty w/ Childcare or Family Care: No Spiritual care concerns: No Meds Home Medications and Allergies Home Medications ?Medication ?Instructions ?Recorded ?Confirmed ?Type atorvastatin 40 mg tablet 40 mg PO QPM 04/18/25 04/18/25 History ergocalciferol (vitamin D2) 1,250 1,250 mcg PO WEEKLY 04/18/25 04/18/25 History mcg (50,000 unit) capsule estradiol 1 mg tablet 1 mg PO DAILY 04/18/25 04/18/25 History hydromorphone 4 mg tablet 4 mg PO Q4-6H PRN pain 04/18/25 04/18/25 History levothyroxine 150 mcg tablet 150 mcg PO DAILY 04/18/25 04/18/25 History sertraline 100 mg tablet 100 mg PO Q24H 04/18/25 04/18/25 History tizanidine 4 mg tablet 4 mg PO TID 04/18/25 04/18/25 History Allergies Allergy/AdvReac Type Severity Reaction Status Date / Time adhesive tape Allergy Intermediate rash Verified 10/21/24 18:41 acetaminophen Allergy Mild HIVES Verified 10/21/24 18:41 oxycodone (From Percocet) Allergy Hives Verified 10/21/24 18:41 OXYCODONE HCL Allergy Mild HIVES Uncoded 10/21/24 18:41 Vital Signs Vital Signs - 24 hr 04/18/25 19:43 Temperature 98.7 F Pulse Rate 72 Respiratory Rate 12 Blood Pressure 129/69 Pulse Oximetry 99 Oxygen Delivery Room Air Exam Narrative: GENERAL: Well-appearing, well-nourished, and in no acute distress. HEAD: Normocephalic, atraumatic. EYES: EOMI. ENT: Nares clear, no rhinorrhea or epistaxis. Mucous membranes moist. NECK: Supple. CHEST: Clear to auscultation. No respiratory distress. HEART: Regular rate and rhythm. No murmur heard. Normal peripheral pulses. ABDOMEN: Soft, nontender, nondistended, normal active bowel sounds. EXTREMITIES: Normal range of motion. No edema. SKIN: Warm, dry, no rash. NEURO: No focal deficits. Alert and oriented x2. Cranial nerves 2-12 intact. Reported decreased sensation to the left lower extremity which is unchanged from baseline. Strength and sensation otherwise intact. H&P: Results Labs Labs: Short CBC 04/18/25 Range/Units 20:04 WBC 7.8 (4.5-10.0) K/mm3 Hgb 14.2 (12.0-15.0) g/dL Hct 43.5 (37.0-47.0) % Plt Count 184 (150-375) k/mm3 BMP 04/18/25 20:04 Sodium 140 Potassium 3.9 Chloride 105 Carbon Dioxide 29 BUN 9 D Creatinine 0.71 Glucose 85 Calcium 9.1 Cardiac Enzymes 04/18/25 Range/Units 20:04 Total Creatine Kinase 65 (30-135) U/L Troponin I < 0.012 (0.000-0.034) ng/mL Liver Function 04/18/25 Range/Units 20:04 Total Bilirubin 0.3 (0.2-1.3) mg/dL AST 26 (14-36) U/L ALT 14 (6-35) U/L Alkaline Phosphatase 118 (38-126) U/L Albumin 4.5 (3.5-5.1) g/dL Urine 04/18/25 Range/Units 20:46 Urine Color Yellow (Yellow) Urine Appearance Clear (Clear) Urine pH 5.5 (5.0-9.0) Ur Specific [place] 1.007 (1.001-1.035) Urine Protein Negative (Negative) mg/dL Urine Glucose (UA) Negative (Negative) mg/dL Assessment and Plan Assessment and plan (1) Seizure-like activity: Code(s): R56.9 - Unspecified convulsions Status: Acute (2) Hypothyroid: Code(s): E03.9 - Hypothyroidism, unspecified Status: Acute (3) HLD (hyperlipidemia): Code(s): E78.5 - Hyperlipidemia, unspecified Status: Acute Plan Unprovoked seizure/pseudoseizures Denies alcoholism Not on antiepileptic medication Ativan 2 mg IV p.r.n. q.6 hours for seizures Neurochecks q.[address]: No acute intracranial hemorrhage or suspicious mass effect. Brain MRI: Pending Accu-Cheks EEG as per Neurology Neurology consulted Seizure precautions Back pain Chronic Multimodal pain management PT OT Call if any changes in CGS/Motor/Sensory exam Hyperlipidemia Continue atorvastatin 40 mg p.o. q.d. Hypothyroidism Continue levothyroxine 150 mcg p.o. q.d. Diabetes mellitus Low-dose sliding scale titrate as needed DVT prophylaxis: Lovenox 40 mg subQ Hospitalist MIPS Advance Care Plan I have confirmed that the patient's Advanced Care Plan is present, code status is documented, or surrogate decision maker is listed in patient medical record.: Yes Medication Reconciliation I have utilized all available resources to obtain, update and review the patients current medications (includes all prescriptions, OTC, herbals, cannabis, and nutritional supplements).: Yes
[2025-04-18 22:44] VITALS: BMI 27.2
[2025-04-18] MEDS: HYDROmorphone HCL (*CRX) 4 MG TABLET PO (22:55)
--- NOTE | 2025-04-18 23:07 | ADMGEN ---
This patient, Yamilka Leslie, was admitted to Medical Room 346-01. Patient/family oriented to hospital policies and general routines including ID bracelet, bed and alarms, visiting hours, pain management, procedures, bathroom and other care routines, personal items, smoking policy, room service/diet, and visiting hours. Information on how to activate the Rapid Response Team has been discussed. Patient/Family are encouraged to report perceived risks to care and to ask questions if they do not understand what they are told or what they should do.
[2025-04-18 23:18] VITALS: PULSE 78
[2025-04-19] VITALS (11 sets, daily range): BP systolic 97–118; BP diastolic 60–63; PULSE 62–79; RESP 16–20; TEMP 36.1–36.4; O2SAT 96–99
[2025-04-19] MEDS: HYDROmorphone HCL (*CRX) 4 MG TABLET PO ×5 (03:11→21:14)
[2025-04-19] MEDS: LEVOTHYROXINE SODIUM 150 MCG TABLET PO (05:38)
[2025-04-19 07:40] LABS: Glucose Point of Care 99 mg/dl (65-105)
[2025-04-19 08:43] LABS: Glucose Point of Care 98 mg/dl (65-105)
[2025-04-19] MEDS: ENOXAPARIN 40 MG/0.4 ML SYRINGE SUB-Q (10:15)
[2025-04-19] MEDS: TIZANIDINE HCL 4 MG TABLET PO ×3 (10:15→17:30)
--- NOTE | 2025-04-19 11:50 | WPDNEURCNPN ---
Assessment and Plan Assessment and plan (1) Closed head injury: Qualifiers: Encounter type: initial encounter Qualified Code(s): S09.90XA - Unspecified injury of head, initial encounter Code(s): S09.90XA - Unspecified injury of head, initial encounter Status: Acute (2) Seizure-like activity: Code(s): R56.9 - Unspecified convulsions Status: Acute Plan The patient should be observed for any seizure-like activity. She is not able to undergo an MRI of the brain since he has hardware in the Lumbar spine area for pain management. She also has had a surgery in the lumbar spine. I would suggest an EEG, carotid Doppler study, baseline prolactin level and repeat within 20 minutes of having a suspected seizure-like spell if possible. A CT scan of brain with contrast may be helpful particularly since not able to undergo MRI of the brain. The possibility of nonepileptic events due to pain and stress has been brought up as a possibility and the patient and her daughter both seem to agree to some extent. However further object evaluation is recommended. Consult date: 04/19/25 HPI: Yamilka Leslie is a 54 year old female with history of seizure-like spells for last 2 and half years. Patient's daughter was present the time. She saw her having to two spells yesterday. According to the history the patient has hit her head with the trunk of her car. She did not have any passing out spell. However according to the daughter she was somewhat confused and was complaining of dizziness. When she was getting out of the car she has another spell of seizure-like activity with reported loss of consciousness. She has not seen any neurologist her despite having seizure-like spells for last 2 and half years. The patient is under chronic pain management for chronic lower back pain which radiates down her left lower limb. She is on opiates. She does smoke and she is on oxygen due to chronic obstructive pulmonary disease. A CT scan of the brain was performed in emergency room which did not show any acute abnormalities. Apparently she is not allowed to have a MRI since he has a spine stimulator in place. Patient lives with the . No history of drug or alcohol abuse. She did not have any tongue biting or incontinence of urine or any abnormal changes after the spell was over. Review of Systems Review of Systems: complains of pain in the head where she had injury and she shows me area slightly to the right of the midline in the vertex somewhat posterior region. I do not feel any bump but she is very sore when you touch in that area. Also she has the protective of testing her arm because he is feels soreness around her left shoulder. No other significant symptoms reported [facility] Social History Social History Smoking packs per day: 1 Smoking cigarettes per day: 20.0 Smoking status: Current every day smoker Tobacco type: cigarettes Alcohol intake: never Substance use: never Do You Feel Safe in your Home?: Yes Lack of Transportation: No Lack of Food: Never True Current Housing: I Have Housing Concerned About Future Housing: No Difficulty Paying Gas/Electric Bills: No Difficulty Paying for Meds: No Currently Unemployed: No Education: Bachelor's Degree Difficulty w/ Childcare or Family Care: No Spiritual care concerns: No Comments there is no prior history of epilepsy or seizure disorder made by a neurologist or any physician according to the patient.. She has not been to see a neurologist or has had a neurological workup done in the past Meds Home Medications and Allergies Home Medications ?Medication ?Instructions ?Recorded ?Confirmed ?Type atorvastatin 40 mg tablet 40 mg PO QPM 04/18/25 04/18/25 History ergocalciferol (vitamin D2) 1,250 1,250 mcg PO WEEKLY 04/18/25 04/18/25 History mcg (50,000 unit) capsule estradiol 1 mg tablet 1 mg PO DAILY 04/18/25 04/18/25 History hydromorphone 4 mg tablet 4 mg PO Q4-6H PRN pain 04/18/25 04/18/25 History levothyroxine 150 mcg tablet 150 mcg PO DAILY 04/18/25 04/18/25 History sertraline 100 mg tablet 100 mg PO Q24H 04/18/25 04/18/25 History tizanidine 4 mg tablet 4 mg PO TID 04/18/25 04/18/25 History Allergies Allergy/AdvReac Type Severity Reaction Status Date / Time adhesive tape Allergy Intermediate rash Verified 10/21/24 18:41 acetaminophen Allergy Mild HIVES Verified 10/21/24 18:41 oxycodone (From Percocet) Allergy Hives Verified 10/21/24 18:41 OXYCODONE HCL Allergy Mild HIVES Uncoded 10/21/24 18:41 Vital Signs Vital Signs - 24 hr 04/18/25 19:43 04/18/25 23:18 04/18/25 23:48 Temperature 98.7 F Pulse Rate 72 78 Respiratory Rate 12 Blood Pressure 129/69 Pulse Oximetry 99 Oxygen Delivery Room Air Room Air 04/19/25 00:00 04/19/25 00:48 04/19/25 04:00 Temperature 97.1 F L Pulse Rate 78 74 74 Respiratory Rate 20 Blood Pressure 118/62 Pulse Oximetry 99 Oxygen Delivery 04/19/25 06:00 04/19/25 10:15 Temperature 97.0 F L Pulse Rate 64 Respiratory Rate 18 Blood Pressure 100/60 Pulse Oximetry 96 96 Oxygen Delivery Room Air Exam Const: General: alert Orientation/consciousness: patient oriented x3 HENMT: Mouth: Yes oropharynx normal Other: Complains of tenderness to the right of the midline in the posterior head region however no significant swelling or lacerations were noted Eyes: Alignment and Position: position normal Pupils: Equal, round and reactive pupils present EOM: EOMs intact bilaterally Neck: Neck: supple Other: no carotid bruit Resp: Effort & Inspection: normal respiratory effort Cardio: Rate: regular rate Rhythm: regular rhythm Skin: General skin exam: normal color Neuro: General: patient oriented x3 Cranial nerves: Yes CN's II-XII intact bilaterally, Yes Equal, round and reactive pupils present, Yes facial symmetry and Yes Midline tongue present Cognition (Neuro): normal cognition Speech: normal speech Motor exam (neuro): 5/5 motor strength present throughout Sensory Exam: normal sensation Coordination: [id number] test normal and Normal rapid alternating movements of the distal upper extremity present (Neuro) Extrem: General: normal to inspection Psych: Mental Status: mental status grossly normal Affect: Anxious affect present Results Labs 04/18/25 20:04 04/18/25 20:04 Labs: Short CBC 04/18/25 Range/Units 20:04 WBC 7.8 (4.5-10.0) K/mm3 Hgb 14.2 (12.0-15.0) g/dL Hct 43.5 (37.0-47.0) % Plt Count 184 (150-375) k/mm3 BMP 04/18/25 20:04 Sodium 140 Potassium 3.9 Chloride 105 Carbon Dioxide 29 BUN 9 D Creatinine 0.71 Glucose 85 Calcium 9.1 Cardiac Enzymes 04/18/25 Range/Units 20:04 Total Creatine Kinase 65 (30-135) U/L Troponin I < 0.012 (0.000-0.034) ng/mL Liver Function 04/18/25 Range/Units 20:04 Total Bilirubin 0.3 (0.2-1.3) mg/dL AST 26 (14-36) U/L ALT 14 (6-35) U/L Alkaline Phosphatase 118 (38-126) U/L Albumin 4.5 (3.5-5.1) g/dL Urine 04/18/25 Range/Units 20:46 Urine Color Yellow (Yellow) Urine Appearance Clear (Clear) Urine pH 5.5 (5.0-9.0) Ur Specific [place] 1.007 (1.001-1.035) Urine Protein Negative (Negative) mg/dL Urine Glucose (UA) Negative (Negative) mg/dL Imaging Attestation: I personally reviewed and interpreted this imaging study as follows: ( CT scan of the head without contrast done 04/18/2025) My impression: no significant abnormal findings were noted Radiologist's impression: same
[2025-04-19 12:27] LABS: Glucose Point of Care 87 mg/dl (65-105)
[2025-04-19 13:01] LABS: Cholesterol 235 mg/dL (0-200); HDL Direct 46 mg/dL; Triglycerides 92 mg/dL (<150)
[2025-04-19 13:04] LABS: Vitamin D 25 Hydroxy 28.6 ng/mL
[2025-04-19 13:12] LABS: LDL Cholesterol Direct 144 mg/dL
[2025-04-19 14:08] LABS: Folic Acid 6.2 ng/mL (2.76->20)
--- NOTE | 2025-04-19 14:43 | PM.IMPN ---
Progress Note: A&P Assessment and Plan (1) Seizure-like activity: Code(s): R56.9 - Unspecified convulsions Status: Acute (2) Hypothyroid: Code(s): E03.9 - Hypothyroidism, unspecified Status: Acute (3) HLD (hyperlipidemia): Code(s): E78.5 - Hyperlipidemia, unspecified Status: Acute Plan Seizure-like activity intermittent episodes since many years has not been evaluated. Denies alcoholism Not on antiepileptic medication Ativan 2 mg IV p.r.n. q.6 hours for seizures Neurochecks q.[address]: No acute intracranial hemorrhage or suspicious mass effect. Brain MRI: Pending Accu-Cheks EEG as per Neurology Neurology consulted Seizure precautions Back pain Chronic Multimodal pain management PT OT Call if any changes in CGS/Motor/Sensory exam Chronic opiate treatment Hyperlipidemia Continue atorvastatin 40 mg p.o. q.d. Hypothyroidism Continue levothyroxine 150 mcg p.o. q.d. Diabetes mellitus Low-dose sliding scale titrate as needed DVT prophylaxis: Lovenox 40 mg subQ Subjective Date/time seen: 04/19/25 14:43 Interval history: History reviewed. Daughter at bedside. Intermittent episodes of seizure-like activity since here to has not been evaluated. Has those episodes for few seconds to minutes followed by confusion. No tongue bite incontinence of urine or stool reported from history. No history brain injury in the past. No history of alcohol Review of Systems Review of Systems: All systems reviewed & are unremarkable except as noted in HPI and below Exam Narrative: GENERAL: Well-appearing, well-nourished, and in no acute distress. HEAD: Normocephalic, atraumatic. EYES: EOMI. ENT: Nares clear, no rhinorrhea or epistaxis. Mucous membranes moist. NECK: Supple. CHEST: Clear to auscultation. No respiratory distress. HEART: Regular rate and rhythm. No murmur heard. Normal peripheral pulses. ABDOMEN: Soft, nontender, nondistended, normal active bowel sounds. EXTREMITIES: Normal range of motion. No edema. SKIN: Warm, dry, no rash. NEURO: No focal deficits. Alert and oriented x 3. Cranial nerves 2-12 intact. Objective Data Vital Signs Vital Signs: Vital Signs - 24 hr 04/18/25 19:43 04/18/25 23:18 04/18/25 23:48 Temperature 98.7 F Pulse Rate 72 78 Respiratory Rate 12 Blood Pressure 129/69 Pulse Oximetry 99 Oxygen Delivery Room Air Room Air 04/19/25 00:00 04/19/25 00:48 04/19/25 04:00 Temperature 97.1 F L Pulse Rate 78 74 74 Respiratory Rate 20 Blood Pressure 118/62 Pulse Oximetry 99 Oxygen Delivery 04/19/25 06:00 04/19/25 08:00 04/19/25 10:15 Temperature 97.0 F L Pulse Rate 64 69 Respiratory Rate 18 Blood Pressure 100/60 Pulse Oximetry 96 96 Oxygen Delivery Room Air 04/19/25 12:00 Temperature Pulse Rate 70 Respiratory Rate Blood Pressure Pulse Oximetry Oxygen Delivery Intake/Output Intake/Output: Intake & Output 04/16/25 04/17/25 04/18/25 04/19/25 23:59 23:59 23:59 23:59 Intake Total 540 Output Total 150 800 Balance -150 -260 Meds/Results Medications: Active Medications Generic Name Dose Route Start Last Admin Trade Name Freq PRN Reason Stop Dose Admin Atorvastatin Calcium 40 mg 04/19/25 18:00 Atorvastatin 40 Mg Tablet PO QPM NASIR Dextrose 12.5 gm 04/18/25 22:47 Dextrose 50% 25 Gm/50 Ml Syringe IV PUSH PRN PRN Hypoglycemia Protocol Enoxaparin Sodium 40 mg 04/19/25 09:00 04/19/25 10:15 Enoxaparin 40 Mg/0.4 Ml Syringe SUB-Q 40 mg DAILY NASIR Administration Estradiol 1 mg 04/19/25 09:00 04/19/25 10:23 Estradiol 1 Mg Tablet PO Not Given DAILY NASIR Glucagon 1 mg 04/18/25 22:47 Glucagon For Inj 1 Mg Vial IM PRN PRN Hypoglycemia Protocol Glucose 15 gm 04/18/25 22:47 Glucose Oral Gel 15 Gm Of Glucse In 37.5 Gm Tube PO PRN PRN Hypoglycemia Protocol Hydromorphone HCl 4 mg 04/19/25 00:20 04/19/25 12:32 Hydromorphone Hcl (*Crx) 4 Mg Tablet PO 4 mg Q4-6H PRN Administration Pain Rated 7-10 Dextrose 1,000 mls @ 100 mls/hr 04/18/25 22:47 Dextrose 5% 1,000 Ml IVPB PRN PRN Hypoglycemia Protocol Insulin Aspart 2 - 5 units 04/19/25 08:00 04/19/25 12:29 Insulin Aspart (*Bkc) 100 Units/Ml SUB-Q Not Given TIDWM [facility] Protocol Insulin Aspart 1 - 2 units 04/19/25 21:00 Insulin Aspart (*Bkc) 100 Units/Ml SUB-Q HS [facility] Protocol Levothyroxine Sodium 150 mcg 04/19/25 06:30 04/19/25 05:38 Levothyroxine Sodium 150 Mcg Tablet PO 150 mcg DAILY@0630 NASIR Administration Lorazepam 2 mg 04/18/25 22:48 Lorazepam Inj (*Crx) 2 Mg/Ml Vial IV PUSH Q6H PRN Seizures Sertraline HCl 100 mg 04/19/25 09:00 04/19/25 10:23 Sertraline Hcl 50 Mg Tablet PO Not Given DAILY NASIR Tizanidine HCl 4 mg 04/19/25 09:00 04/19/25 12:32 Tizanidine Hcl 4 Mg Tablet PO 4 mg TID NASIR Administration Radiology Results: ITS Impressions Cervical Spine CT 04/18/25 20:55 Impression: Straightening and slight reversal of the normal curvature of the cervical spine, likely muscular in origin. No acute fracture. Chest X-Ray 04/18/25 21:00 IMPRESSION: No large infiltrate or effusion. No pneumothorax. Labs Labs: Laboratory Results - last 24 hr 04/18/25 04/18/25 04/18/25 20:04 20:46 23:55 WBC 7.8 RBC 4.44 Hgb 14.2 Hct 43.5 MCV 98.0 MCH 32.0 MCHC 32.6 RDW 12.5 Plt Count 184 MPV 11.8 H Immature Gran % (Auto) 0.3 Neut % (Auto) 54.6 Lymph % (Auto) 37.7 [place] % (Auto) 5.8 Eos % (Auto) 1.3 Baso % (Auto) 0.3 Lymph # (Auto) 2.93 [place] # (Auto) 0.5 Eos # (Auto) 0.1 Baso # (Auto) 0.0 Abs Immat Gran (auto) 0.02 Absolute Neuts (auto) 4.3 Absolute Nucleated RBC 0.000 Nucleated RBC % 0.0 PT 12.6 INR 0.9 APTT 28.8 Sodium 140 Potassium 3.9 Chloride 105 Carbon Dioxide 29 Anion Gap 6 BUN 9 D Creatinine 0.71 Estim Creat Clear Calc 72 Estimated GFR > 60 Glucose 85 POC Capillary Glucose 99 Lactic Acid 0.9 Calcium 9.1 Total Bilirubin 0.3 AST 26 ALT 14 Alkaline Phosphatase 118 Total Creatine Kinase 65 Troponin I < 0.012 Total Protein 8.0 Albumin 4.5 Triglycerides Cholesterol LDL Cholesterol Direct HDL Direct Vitamin B12 Vitamin D 25-Hydroxy Folate TSH 3.980 Urine Color Yellow Urine Appearance Clear Urine pH 5.5 Ur Specific [place] 1.007 Urine Protein Negative Urine Glucose (UA) Negative Urine Ketones Negative Ur Blood (Man) Negative Urine Nitrate Negative Urine Bilirubin Negative Urine Urobilinogen 1.0 Leukocyte Esterase Rfl Negative Urine Opiates Screen Positive A Urine Methadone Screen Negative Ur Barbiturates Screen Negative Ur Phencyclidine Scrn Negative Ur Amphetamine Screen Negative U Benzodiazepines Scrn Negative Urine Cocaine Screen Negative U Cannabinoids Screen Negative Ethyl Alcohol < 10 04/19/25 04/19/25 04/19/25 08:40 12:24 12:25 WBC RBC Hgb Hct MCV MCH MCHC RDW Plt Count MPV Immature Gran % (Auto) Neut % (Auto) Lymph % (Auto) [place] % (Auto) Eos % (Auto) Baso % (Auto) Lymph # (Auto) [place] # (Auto) Eos # (Auto) Baso # (Auto) Abs Immat Gran (auto) Absolute Neuts (auto) Absolute Nucleated RBC Nucleated RBC % PT INR APTT Sodium Potassium Chloride Carbon Dioxide Anion Gap BUN Creatinine Estim Creat Clear Calc Estimated GFR Glucose POC Capillary Glucose 98 87 Lactic Acid Calcium Total Bilirubin AST ALT Alkaline Phosphatase Total Creatine Kinase Troponin I Total Protein Albumin Triglycerides 92 Cholesterol 235 H LDL Cholesterol Direct 144 HDL Direct 46 Vitamin B12 583.0 Vitamin D 25-Hydroxy 28.6 Folate 6.2 TSH Urine Color Urine Appearance Urine pH Ur Specific [place] Urine Protein Urine Glucose (UA) Urine Ketones Ur Blood (Man) Urine Nitrate Urine Bilirubin Urine Urobilinogen Leukocyte Esterase Rfl Urine Opiates Screen Urine Methadone Screen Ur Barbiturates Screen Ur Phencyclidine Scrn Ur Amphetamine Screen U Benzodiazepines Scrn Urine Cocaine Screen U Cannabinoids Screen Ethyl Alcohol
[2025-04-19] MEDS: ALPRAZolam (*CRX) 0.5 MG TABLET PO (16:08)
[2025-04-19] MEDS: ATORVASTATIN 40 MG TABLET PO (17:31)
[2025-04-19 17:34] LABS: Glucose Point of Care 99 mg/dl (65-105)
--- NOTE | 2025-04-19 23:28 | PC.NURSE ---
Pt increasingly frustrated this evening about being in hospital and feeling claustrophobic and tied down. Said she does not need a tar roofer and is refusing the bed alarm.
[2025-04-20] VITALS: PULSE 62
[2025-04-20 04:00] VITALS: PULSE 64
[2025-04-20] MEDS: LEVOTHYROXINE SODIUM 150 MCG TABLET PO (05:35)
[2025-04-20] MEDS: HYDROmorphone HCL (*CRX) 4 MG TABLET PO ×2 (05:36→12:13)
[2025-04-20 06:00] VITALS: BP 104/72; PULSE 70; RESP 16; TEMP 35.8; O2SAT 95
[2025-04-20 06:07] LABS: Cholesterol 227 mg/dL (0-200); HDL Direct 41 mg/dL; Triglycerides 130 mg/dL (<150)
[2025-04-20 06:18] LABS: LDL Cholesterol Direct 131 mg/dL
[2025-04-20 06:24] LABS: Prolactin 7.9 ng/mL
[2025-04-20 07:53] LABS: Glucose Point of Care 112 mg/dl (65-105)
[2025-04-20] MEDS: TIZANIDINE HCL 4 MG TABLET PO ×2 (09:05→12:13)
[2025-04-20] MEDS: SERTRALINE HCL 50 MG TABLET 100 MG PO (09:05)
--- NOTE | 2025-04-20 11:05 | P.NEURO_ITS ---
Neurology EEG Report General Information Date of Study: 04/20/25 TEST EEG DIAGNOSIS Multiple sores and seizures. CONDITION OF RECORDING Awake, drowsy and asleep. EEG NUMBER [id number] CLINICAL HISTORY Patient reports she has a history of seizures but is not on any medications for it. EEG DESCRIPTION Basic resting occipital frequency consists of well-organized no movement each to medium voltage 9 to 11 hertz per 2nd alpha admixed with low-voltage 15 to 18 hertz per 2nd beta. Alpha activity symmetrically block with eyes open. Low- voltage alpha activity seen vaccine and waning during drowsiness Evolving into bilateral symmetrical sleep spindles. Photic stimulation not done. Hyperventilation not done. Non paroxysmal. Nonfocal. Mood nonlateralizing. IMPRESSION Normal record. Clinical correlation recommended as normal tracing does not rule out the possibility of seizures.
--- NOTE | 2025-04-20 14:13 | PM.DS ---
DS: Admitting Diagnosis Discharge Date 04/20/2025 Admitting Diagnosis Seizure-like activity DS: Discharge Diagnosis Discharge Diagnosis (1) Seizure-like activity: Code(s): R56.9 - Unspecified convulsions Status: Acute (2) Hypothyroid: Code(s): E03.9 - Hypothyroidism, unspecified Status: Acute (3) HLD (hyperlipidemia): Code(s): E78.5 - Hyperlipidemia, unspecified Status: Acute DS: Summary Hospital Course Hospital Course: Seizure-like activity intermittent episodes since many years has not been evaluated. Denies alcoholism Not on antiepileptic medication Ativan 2 mg IV p.r.n. q.6 hours for seizures Neurochecks q.[address]: No acute intracranial hemorrhage or suspicious mass effect. 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 Follow-up as an outpatient basis. Patient also noted to be on benzodiazepines intermittently filled last refill was in March 11, 2025. However her UDS came back negative for benzodiazepines. Also relate to benzodiazepine withdrawal seizure. Back pain Chronic Multimodal pain management PT OT Call if any changes in CGS/Motor/Sensory exam Chronic opiate treatment Hyperlipidemia Continue atorvastatin 40 mg p.o. q.d. Hypothyroidism Continue levothyroxine 150 mcg p.o. q.d. Diabetes mellitus Low-dose sliding scale titrate as needed Time Spent with Patient Time attestation: Total time spent providing and/or coordinating discharge services: 35 minutes Exam Narrative: GENERAL: Well-appearing, well-nourished, and in no acute distress. HEAD: Normocephalic, atraumatic. EYES: EOMI. ENT: Nares clear, no rhinorrhea or epistaxis. Mucous membranes moist. NECK: Supple. CHEST: Clear to auscultation. No respiratory distress. HEART: Regular rate and rhythm. No murmur heard. Normal peripheral pulses. ABDOMEN: Soft, nontender, nondistended, normal active bowel sounds. EXTREMITIES: Normal range of motion. No edema. SKIN: Warm, dry, no rash. NEURO: No focal deficits. Alert and oriented x 3. Cranial nerves 2-12 intact. DS: Data Data Completed and Pending Labs on day of discharge: Labs from last 24 hours 04/20/25 04/19/25 04/19/25 05:35 20:59 17:32 POC Capillary Glucose 112 H 99 Triglycerides 130 Cholesterol 227 H LDL Cholesterol Direct 131 HDL Direct 41 Prolactin 04/19/25 12:24 POC Capillary Glucose Triglycerides Cholesterol LDL Cholesterol Direct HDL Direct Prolactin 7.9 Imaging Radiologist's impression: ITS Impressions Head CT 04/18/25 20:45 Impression: No acute intracranial hemorrhage or suspicious mass effect. Cervical Spine CT 04/18/25 20:55 Impression: Straightening and slight reversal of the normal curvature of the cervical spine, likely muscular in origin. No acute fracture. Chest X-Ray 04/18/25 21:00 IMPRESSION: No large infiltrate or effusion. No pneumothorax. Head CT 04/19/25 14:43 Impression: No acute intracranial hemorrhage, abnormal contrast enhancement or suspicious mass effect. Carotid Doppler Study 04/19/25 14:46 IMPRESSION: 1. Less than 50% stenosis in the right internal carotid artery. 2. Less than 50% stenosis in the left internal carotid artery. Discharge Plan Discharge Attending physician on discharge: Ar Rojas Consulting providers: Lisbeth Hoover Discharging Clinician: Ar Rojas Anticipated Discharge Date/Time: 04/20/25 14:15 Patient Disposition: Home Activity: as tolerated Diet: regular Patient Instructions: Antibiotic Form, Heart Failure (DC), Help Prevent Suicide in Older Adults (DC), Suicide Prevention (DC) Patient Language: Mongolian Stand Alone Forms: General Discharge Information Follow-up/Referrals: Lisbeth Hoover MD [Physician] - 2 Weeks UNKNOWN,DOCTOR [Primary Care Provider] - 1 Week Discharge Medications: Continued atorvastatin 40 mg tablet 40 mg PO QPM ergocalciferol (vitamin D2) 1,250 mcg (50,000 unit) capsule 1,250 mcg PO WEEKLY estradiol 1 mg tablet 1 mg PO DAILY hydromorphone 4 mg tablet 4 mg PO Q4-6H PRN (Reason: pain) levothyroxine 150 mcg tablet 150 mcg PO DAILY sertraline 100 mg tablet 100 mg PO Q24H tizanidine 4 mg tablet 4 mg PO TID Date of admission: 04/19/25 08:37 Primary Care Provider: UNKNOWN,DOCTOR Admitting Provider: Les Rodriguez Attending physician on admission: Les Rodriguez Condition: Stable
[2025-04-20 14:14] VITALS: BP 96/70; PULSE 85; RESP 18; TEMP 36.8; O2SAT 98
== END 2025-04-20 14:46 | disposition home or self-care (01) | DRG 101 ==
LOC: ANHED 22:20 → ANH3MED 22:39
PROVIDERS: Psychiatry & Neurology Neurology; Admitting Provider General Practice; Emergency Provider Physician Assistant; Visit Provider Internal Medicine
DX: R56.9 Unspecified convulsions (principal); E11.9 Type 2 diabetes mellitus without complications; E03.9 Hypothyroidism, unspecified; E78.5 Hyperlipidemia, unspecified; F17.210 Nicotine dependence, cigarettes, uncomplicated; G89.29 Other chronic pain; M54.9 Dorsalgia, unspecified
CPT/HCPCS: 36415; 70450; 70470; 71045; 72125; 80053; 80061; 80307; 81003; 82077; 82306; 82550; 82607; 82746; 82948; 83605; 84146; 84443; 84484; 85025; 85610; 85730; 93005; 93880; 95816; 96374; 99285; A9270; G0378; J1650; J2060; Q9967